=== PATIENT | male | born 1985 | race Caucasian/White ===

== ENCOUNTER 2019-01-25 12:16 | Inpatient (IN) | payer OTHER, SELFPAY ==
[2019-01-25] VITALS (10 sets, daily range): BP systolic 145–158; BP diastolic 81–88; PULSE 76–99; RESP 16–18; TEMP 37.1–38.5; O2SAT 94–98; BMI 59.8; BMI 59.9
[2019-01-25 12:55] LABS: Bedside Glucose 234 mg/dL (70-110)
--- NOTE | 2019-01-25 13:12 | ED.VIS.GEN ---
History of Present Illness Chief Complaint: Abscess Informant: Patient Onset: Days Context: Sudden Onset Timing: Continuous Quality: Abscess right lower abdominal wall with spontaneous drainage Location: Right lower quadrant abdominal wall Current Severity: Moderate Maximum Severity: Moderate Worsened by: Nothing Relieved by: Nothing Associated Symptoms: Subjective fever and chills Narrative: Patient is a 33-year-old male with history of diabetes who presents with abscess and cellulitis right lower quadrant abdominal wall. He states to be sits up the abscess begins to drain. He denies headache, ocular or auditory symptoms. He denies blurred vision. He denies cardiac or respiratory symptoms. He denies GI symptoms. He denies symptoms. He has not assessed his blood sugar recently. He denies dysuria, frequency, urgency or hematuria. Prior similar symptoms: No Recent Illness/Hospitalization: No - Past Medical History (1) Benign essential hypertension Status: Chronic (2) Gastroesophageal reflux disease Status: Chronic (3) Hyperlipidemia Status: Chronic (4) Morbid obesity Status: Chronic (5) Type 2 diabetes mellitus Status: Chronic Past Medical History - Allergies and Home Meds Allergies/Adverse Reactions: Allergies No Known Allergies Allergy (Verified 01/25/19 12:17) Primary Care Physician: Pablo Lloyd MD [Primary Care Provider] - Prior records reviewed: No - Only record is from 2012 Lives: Spouse/ Significant Other Smoking Status: Current every day smoker Drugs: None Review of Systems General: Reports: Chills, Fever, Malaise, Subjective. Denies: Sweats, Weight loss Eyes: Denies: Visual changes - bilaterally, Blurred Vision - bilaterally, Diplopia ENT: Denies: Bilateral ear pain, Rhinorrhea, Sore throat Cardiovascular: Denies: Chest pain, Palpitations, Heart racing Respiratory: Denies: Dyspnea, Cough, Dyspnea on exertion Gastrointestinal: Reports: Abdominal pain. Denies: Nausea, Vomiting, Diarrhea, Melena Genitourinary: Denies: Dysuria, Frequency Musculoskeletal: Denies: Myalgias, Arthralgias, Neck pain, Back pain, Swelling, Extremity Pain, -, - Skin: Reports: Rash, Abscess Neurological: Denies: Headache, Weakness, Parasthesia, Numbness, -, - Endocrine: Denies: Polyuria, Polydipsia Hematologic: Denies: Easy bruising, Easy bleeding Allergy: Denies: Uticaria, Swelling of the mouth Physical Exam Vital Signs/Narrative: Vital Signs Temp Pulse Resp BP Pulse Ox 01/25/19 12:17 98.8 F 99 17 158/81 H 97 Inital Vital Signs reviewed: Yes General: Well nourished, Well developed, Obese, No Acute Distress Head: Normocephalic, Atraumatic Eyes: Perrl, EOMI. Negative for: Pale conjunctiva, Scleral icterus, - ENT: Moist mucous membranes, No rhinorrhea, TM's clear Neck: Supple, Nontender, No lymphadenopathy, No JVD, - Cardiovascular: Regular rate, Regular rhythm, No murmurs, Normal S1, Normal S2 Respiratory: CTA bilaterally, Chest nontender Abdomen: Soft, Nontender, Nondistended, Normal bowel sounds, No masses, - - There is drainage of purulent material from the right lower quadrant abdominal wall. Rectal: Deferred Back: Nontender, Normal Inspection Extremities: Nontender, Edema Skin: Normal color, Rash - There is evidence of cellulitis involving the abdominal wall the right lower quadrant down to the inguinal region.. Negative for: Cyanosis, Jaundice Neurological: Alert, Oriented x3, Cranial nerves II-XII grossly intact, Normal Strength, Normal Sensation Psychological: Normal affect, Normal Mood Diagnostic/Tx/Re-eval Laboratory Results 01/25/19 01/25/19 01/25/19 12:30 12:35 12:35 WBC 16.2 H RBC 4.40 L Hgb 12.1 L Hct 36.2 L MCV 82.3 MCH 27.5 MCHC 33.4 RDW 12.9 RDW Differential 39.0 Plt Count 365 MPV 9.9 Immature Gran % (Auto) 0.600 Neut % (Auto) 80.7 H Lymph % (Auto) 9.3 L Me[place] % (Auto) 7.8 Eos % (Auto) 1.4 Baso % (Auto) 0.2 Absolute Neuts (auto) 13.1 H Absolute Lymphs (auto) 1.51 Total Counted Not Reportable Sodium 132 L Potassium 3.2 L Chloride 98 Carbon Dioxide 27.0 Anion Gap 7 BUN 13 Creatinine 1.29 Estim Creat Clear Calc 96.44 Est GFR (MDRD) Af Amer 82 Est GFR (MDRD) Non-Af 68 BUN/Creatinine Ratio 10.1 Glucose 228 H Lactic Acid Calcium 9.5 POC Glucose 234 H 01/25/19 12:35 WBC RBC Hgb Hct MCV MCH MCHC RDW RDW Differential Plt Count MPV Immature Gran % (Auto) Neut % (Auto) Lymph % (Auto) [place] % (Auto) Eos % (Auto) Baso % (Auto) Absolute Neuts (auto) Absolute Lymphs (auto) Total Counted Sodium Potassium Chloride Carbon Dioxide Anion Gap BUN Creatinine Estim Creat Clear Calc Est GFR (MDRD) Af Amer Est GFR (MDRD) Non-Af BUN/Creatinine Ratio Glucose Lactic Acid 3.4 H Calcium POC Glucose - Rhythm Strip Rhythm Strip: Sinus Rhythm Rate: 96 Ectopy: None - Medical Decision Making Patient has a large abdominal wall abscess and cellulitis. Sepsis work-up was undertaken. If lactate is elevated will obtain blood cultures prior to starting antibiotics and will choose appropriate antibiotics for severe sepsis for skin infection. Patient will require I&D. Since he is morbidly obese he will not be sedated. He did drink 50 minutes prior to arrival. Patient has 2 sirs criteria and a lactate of 3.4. Patient has severe sepsis. Blood cultures were obtained and he was treated with Zosyn and vancomycin. Spoke with Dr. severino who he apparently was referred to to be seen as an outpatient. She will follow and if further intervention is required she will care for patient. Hospitalist was paged for admission. Procedures Procedure(s): Patient was consented for I&D. The area of cellulitis was outlined. Patient had small opening with significant amount of purulent drainage. The area was anesthetized by local infiltration and field block. A 4-5 cm incision was made. Blunt dissection was was undertaken with significant amount of bloody purulent drainage noted. Abscess cavity is 10 cm wide by 10 cm long and 5 cm deep. Patient was explained risk benefits of procedure and did sign consent. Complex large abscess ED Disposition - Plan for ED Patient: Disposition: Acute Care Hospital [facility] Diagnosis: Severe sepsis, Cellulitis and abscess of other specified site, Hyperglycemia due to type 2 diabetes mellitus Referrals: Pablo Lloyd MD [Primary Care Provider] -
[2019-01-25 13:16] LABS: Absolute Lymphocyte Count 1.51 X10^3/ul (0.83-4.51); Absolute Neutrophil Count 13.1 X10^3/uL (2.0-7.7); Basophil# 0.03 X10^3/uL; Basophil% 0.2 % (0-1); Eosinophil# 0.23 X10^3/uL; Eosinophils% 1.4 % (0-5); Hematocrit 36.2 % (40-54); Hemoglobin 12.1 g/dl (13.0-16.5); Lymphocyte # 1.51 X10^3/ul (4.0); Lymphocyte % 9.3 % (19-41); Mean Corp Hgb Conc 33.4 g/gl (32-36); Mean Corpuscular Hgb 27.5 pg (27.0-32.0); Mean Corpuscular Volume 82.3 fL (80-94); Mean Platelet Vol. 9.9 fl (6.2-12.0); Monocyte# 1.26 X10^3/uL; Monocyte% 7.8 % (0-10); Neutrophil # 13.08 X10^3/uL (2.7-7.7); Neutrophil % 80.7 % (47-70); POSITIVE COUNT NO; POSITIVE DIFFERENTIAL NO; Platelet Count 365 K/mm3 (150-450); RBC Distribution Width CV 12.9 % (11.6-14.6); White Blood Count 16.2 K/mm3 (4.4-11.0)
[2019-01-25 13:17] LABS: POSITIVE MORPHOLOGY NO
[2019-01-25 13:21] LABS: Anion Gap 7 (5-15); BUN 13 mg/dL (7-18); BUN/Creat Ratio 10.1 RATIO (10-20); Calcium,Total 9.5 mg/dL (8.5-10.1); Chloride 98 mmol/L (98-107); Creatinine, Serum 1.29 mg/dL (0.70-1.30); EST Glomerular Filtration Rate 68 mL/min (>60); Est Glom Filt Rate - Afr Amer 82 mL/min (>60); Estimated Creatinine Clearance 96.44 ml/min; Glucose 228 mg/dL (74-106); Potassium 3.2 mmol/L (3.5-5.1); Sodium Level 132 mmol/L (136-145)
[2019-01-25 13:37] LABS: Lactic Acid 3.4 mmol/L (0.4-2.0)
--- NOTE | 2019-01-25 14:33 | HP.PCM_ITS ---
Problem List (1) Severe sepsis Status: Acute (2) Cellulitis and abscess of other specified site Status: Acute (3) Hyperlipidemia Status: Chronic (4) Gastroesophageal reflux disease Status: Chronic (5) Type 2 diabetes mellitus Status: Chronic (6) Benign essential hypertension Status: Chronic History of Present Illness Date of Admission: 01/25/19 Chief Complaint: Lower abdominal swelling, drainage. The patient is a 33 year old M with past medical history as mentioned above presented to the emergency room because of lower abdominal swelling and drainage. His symptoms started about 6 days ago with mild swelling of the lower abdomen. 2 days after the symptoms started, he started having lower abdominal pain, described as dull aching pain, mild, 2-3 out of 10 in severity, not radiating, associated with subjective fever or chills as well as increased drainage from the lower abdominal area and without aggravating or relieving factors. He mentioned that there was moderate amount of drainage from the area which looked like pus. In the emergency department, he was afebrile, heart rate was 99, blood pressure was slightly elevated, pulse ox was maintained on room air. Routine blood work was remarkable for leukocytosis with neutrophilia, potassium 3.2, sodium of 132 and blood glucose of 228. His lactic acid was 3.4. He underwent bedside incision and drainage by the ER physician at the emergency department. He is being admitted for acute anterior abdominal wall cellulitis/abscess with severe sepsis status post bedside incision and drainage. Past Medical History Past Medical History (Chronic Problems): Chronic Problems Morbid obesity (Chronic) Hyperlipidemia (Chronic) Gastroesophageal reflux disease (Chronic) Type 2 diabetes mellitus (Chronic) Benign essential hypertension (Chronic) Allergies No Known Allergies Allergy (Verified 01/25/19 12:17) Home Medications: Ambulatory Orders Medication Instructions Recorded Albuterol Inhaler [Ventolin Hfa 2 puff INHALATION Q4H PRN PRN 01/25/19 (SP)] Chlorthalidone 25 mg PO DAILY 01/25/19 Citalopram [Celexa] 40 mg PO DAILY 01/25/19 Doxazosin Mesylate [Cardura] 4 mg PO QHS 01/25/19 Esomeprazole Magnesium 40 mg PO BIDCM 01/25/19 Fluticasone 0.05% [Flonase Nasal 2 sprays PO QHS 01/25/19 [place]] Gabapentin [Neurontin] 300 mg PO QHS 01/25/19 Glipizide [Glipizide ER] 2.5 mg PO DAILY 01/25/19 Liraglutide [Victoza] 1.8 mg SQ DAILY 01/25/19 Lisinopril 40 mg PO DAILY 01/25/19 Metformin HCl 500 mg PO BID 01/25/19 Pravastatin [Pravachol] 40 mg PO DAILY 01/25/19 Verapamil HCl [Verapamil ER] 240 mg PO QHS 01/25/19 Surgical History: tonsillectomy Psychiatric History: No pertinent psych hx Lives: Spouse/ Significant Other Smoking Status: Current every day smoker Alcohol: None Drugs: None - *Family History Maternal History Items: No pertinent history Paternal History Items: Diabetes, - - Congestive heart failure. Review of Systems Constitutional: Reports: Chills, Fever. Denies: Anorexia, Weakness Eyes: Denies: Blurred vision, Double vision, Drainage, Redness HEENT: Denies: Difficulty Hearing, Ear Pain, Eye Pain, Nasal Congestion, Sore Throat Cardiovascular: Denies: Chest Pain, Chest Pressure, Chest Tightness, Heaviness, Light Headedness, Palpitations, Syncope Respiratory: Denies: Cough, Pleuritic Pain, Shortness of Breath, Sputum production, Wheezing Gastrointestinal: Reports: Abdominal Pain. Denies: Constipation, Diarrhea, Nausea, Vomiting Genitourinary: Denies: Dysuria, Frequency, Hematuria Musculoskeletal: Denies: Arm Pain, Back Pain, Foot Pain Skin: Denies: Dryness, Rash Neurological: Denies: Balance problems, Change in Speech, Slurred speech, Confusion, Incoordination, Numbness Psychiatric: Denies: Anxiety, Depression Endocrine: Denies: Change in Body Habitus, Polydipsia VTE Information - Inpt Only VTE Present on Admission: No VTE Mechan Device Prophylaxis: None VTE Pharm Prophylaxis ordered?: No Patient Problems: Active and Suspected Problems Severe sepsis (Acute) Cellulitis and abscess of other specified site (Acute) Hyperglycemia due to type 2 diabetes mellitus (Acute) - Physical Exam General: Alert, Oriented x3, Cooperative, No apparent distress HEENT: Atraumatic, PERRLA, EOMI, Normocephalic Oral: Moist Mucosa, No Gingival or Mucosal Lesions/ Ulcerations Neck: Supple, No JVD, Negative Carotid Bruits, Trachea Midline, Thyroid Normal Size and Texture Lungs: Clear to auscultation, No rhonchi, No wheeze, No rales, Diminished Cardiovascular: Regular rate, Regular Rhythm, Normal S1, Normal S2, No murmurs, PMI Normal Abdomen: Bowel Sounds Present, Soft, Non Tender, Non-Distended, No Hepato- splenomegaly, Obese Extremities: No clubbing, No cyanosis, No edema Skin: No rashes, Ulcer/ Wound - Lower anterior abdominal wall wound, status post incision and drainage, dressed. Lymphatic: No Cervical, Supraclavicular, or Inguinal Adenopathy Neurological: Cranial nerves II-XII grossly intact, Motor Exam 5/5 strength throughout Psych/Mental Status: Normal Affect, Appropriate, Alert and oriented to time, place, person, mood and affect Vital Signs Temp Pulse Resp BP Pulse Ox 98.8 F 76 18 147/86 H 98 01/25/19 13:20 01/25/19 13:20 01/25/19 13:20 01/25/19 13:20 01/25/19 13:20 Oxygen Delivery Method Room Air Weight: 479 lb Body Mass Index (BMI) 59.8 Laboratory Tests Past 24 Hrs 01/25/19 01/25/19 01/25/19 12:35 12:35 12:35 WBC 16.2 H RBC 4.40 L Hgb 12.1 L Hct 36.2 L MCV 82.3 MCH 27.5 MCHC 33.4 RDW 12.9 RDW Differential 39.0 Plt Count 365 MPV 9.9 Immature Gran % (Auto) 0.600 Neut % (Auto) 80.7 H Lymph % (Auto) 9.3 L [place] % (Auto) 7.8 Eos % (Auto) 1.4 Baso % (Auto) 0.2 Absolute Neuts (auto) 13.1 H Absolute Lymphs (auto) 1.51 Total Counted Not Reportable Sodium 132 L Potassium 3.2 L Chloride 98 Carbon Dioxide 27.0 Anion Gap 7 BUN 13 Creatinine 1.29 Estim Creat Clear Calc 96.44 Est GFR (MDRD) Af Amer 82 Est GFR (MDRD) Non-Af 68 BUN/Creatinine Ratio 10.1 Glucose 228 H Lactic Acid 3.4 H Calcium 9.5 POC Glucose 01/25/19 12:30 POC Glucose 234 H Assessment/Plan All Active Problems Severe sepsis (Acute) Cellulitis and abscess of other specified site (Acute) Hyperglycemia due to type 2 diabetes mellitus (Acute) This is a 33 years old male patient presented to the emergency room because of lower abdominal pain and swelling and drainage, found to have acute anterior abdominal wall cellulitis/abscess with severe sepsis, status post bedside incision and drainage. #1 acute anterior abdominal wall cellulitis/abscess/severe sepsis: Status post bedside incision and drainage that was performed by ER physician. Patient was tachycardic, having leukocytosis with elevated lactic acid. Blood pressure is slightly elevated. Plan: Admit to [facility] floor, cardiac monitoring, blood culture, start wound culture, MRSA wound screen, start IV Zosyn and vancomycin, IV fluids, IV morphine PRN, IV antiemetics PRN, repeat lactic acid in 3 hours, repeat CBC and BMP tomorrow morning, general surgery consult, wound care nurse consult. #2 hyponatremia/hypokalemia: Sodium was 133, potassium is 3.2. Likely because of chlorthalidone. Plan for IV fluids with normal saline, will give 1 dose of K. Dur 60 mEq x 1, repeat BMP tomorrow morning. #3 type 2 diabetes mellitus: ADA diet, Accu-Cheks, insulin scale, will check hemoglobin A1c, continue glipizide and Victoza as well as metformin. #4 hypertension: Blood pressure slightly elevated, continue chlorthalidone and lisinopril as well as verapamil, IV hydralazine PRN. #5 hyperlipidemia: Continue statins. #6 GERD: Stable, continue PPI. #7 DVT prophylaxis: SCDs, low risk patient, ambulate. This note was generated with [employer] dictation software. It may contain incorrect words, spelling, and punctuation that were not noted in checking the note before signing. Code Visit Inpatient E&M: 96643 Init Hosp L3
[2019-01-25] MEDS: Ondansetron 4 MG/2 ML Vial IV (14:56)
[2019-01-25] MEDS: morphine 8 MG/ML Syringe IV (14:56)
--- NOTE | 2019-01-25 15:00 | CON.PCM_ITS ---
- Consult Date of Consult: 01/25/19 - Reason for Consult Chief Complaint: abscess of abdominal wall History of Present Illness: 33 y/o super morbidly obese WM presents with abdominal wall abscess. Noted for several days, it is very painful. Noted foul odored drainage from the area, but it is difficult for him to evaluate the area due to his body habitus. Presented to the ED, I&D done by ED physician. Patient has also noted fevers and shaking chills, may be bacteremic/sepsis from this abdominal wall infection WBC 16.2K with left shift of differential. 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 glipiZIDE (GLUCOTROL XL) 2.5 mg 24 hr tablet Take 1 tablet by mouth daily with breakfast. doxazosin (CARDURA) 4 mg tablet Take 1 tablet by mouth daily at bedtime. citalopram (CELEXA) 40 mg tablet Take 1 tablet by mouth once daily. verapamil SR (CALAN SR, ISOPTIN SR) 240 mg CR tablet Take 2 tablets by mouth daily at bedtime. esomeprazole (NEXIUM) 40 mg capsule Take 1 capsule by mouth twice daily before meals. lisinopril (ZESTRIL, PRINIVIL) 40 mg tablet Take 1 tablet by mouth once daily. chlorthalidone (HYGROTON) 25 mg tablet Take 1 tablet by mouth once daily. pravastatin (PRAVACHOL) 40 mg tablet Take 1 tablet by mouth once daily. metFORMIN (GLUCOPHAGE) 500 mg tablet Take 2 tablets by mouth twice daily with meals. fluticasone (FLONASE) 50 mcg/actuation nasal spray Use 2 Sprays in each nostril daily at bedtime. albuterol HFA (VENTOLIN HFA) 90 mcg/actuation inhaler Inhale 2 Puffs as instructed every 4 hours as needed for Wheezing/Shortness of Breath. lancets (ONE TOUCH DELICA) 33 gauge misc Test blood sugar(s) 2 daily. Dx: 250.00. Insulin: No Insulin [place], Disposable, (PEN NEEDLE) 29 gauge x 1/2 ndle Use daily as directed. Dx IMO 0001 blood sugar diagnostic (ONETOUCH VERIO) test strip Test blood sugar(s) 2 times daily. Dx: 250.00. Insulin: No alcohol swabs (ALCOHOL WIPES) padm Use as directed for fingersticks, injections. liraglutide (VICTOZA) 0.6 mg/ 0.1 ml subcutaneous pen injector Inject 1.8 mg subcutaneously once daily. BIPAP 1 Device by MISCELLANEOUS route daily at bedtime. Auto Bilevel PAP settings of: EPAP min of 15 cmH2O, IPAP max of 25 cmH2O, pressure support of 4-6 cmH2O and auto rate. Medium resmed rojo FX nasal pillow mask. Head gear, humidity, tubing, chin strap, [employer]. obstructive sleep apnea G47.33 please fax 30 day download to [phone]. Blood-Glucose Meter (ONETOUCH VERIO SYSTEM) [facility] [place] [facility] One Kit - Verio Meter Kit Dx: Type 2 DM - Uncontrolled E11.65. doxycycline (VIBRA-TABS) 100 mg tablet Take 1 tablet by mouth twice daily for 10 days. ? Allergies: Has no known drug allergies Social history: TOB use positive Review of Systems: General - has fevers/chills, denies weight loss Cardiovascular denies chest pain, denies history of heart attack Pulmonary has shortness of breath with exertion, denies coughing up blood Gastrointestinal abdominal pain at site of abscess, denies blood in stools, denies swallowing problems Neurological denies numbness/weakness of extremities, denies seizures, denies history of stroke Genitourinary denies burning with urination, denies blood in urine Hematological denies spontaneous/prolonged bleeding Skin see HPI Musculoskeletal has some back pain Endocrine has diabetes, is morbidly obese Psychological has depressive disorder Physical examination: Vital signs Temp 101.3F HR 97 RR 16 BP 155/83 General WD/WN WM in no apparent distress, alert and oriented, not septic appearing HEENT Normocephalic. EOM intact with sclera clear and no icterus noted. Neck is supple with no jugular venous distention noted. Trachea is midline. Lungs clear to auscultation. normal breath sounds. No rales/rhonchi/wheezing noted. No labored breathing noted, such as retractions. No cough heard. Heart normal S1 and S2 auscultated. No rubs/clicks/murmurs noted. regular rate Abdomen soft and benign and morbidly obese. Normal bowel sounds. 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 Extremities no calf tenderness noted. bilateral lower dependent extremity swelling Genitourinary/Rectal deferred Skin see above, normal skin integrity. Neurological non focal Psychological normal affect, patient is calm and appropriate Impresion: panniculitis with abscess super morbid obesity with complications of diabetes and TOB use which complicates infection Discussion/Plan: I have discussed the above with the patient. At this point, no further surgery required at this point, but will continue to reassess. Will need antibiotic coverage and control of diabetes - patient admitted to hospitalists service. I have answered all questions to the patient?s satisfaction and the patient has no further questions.
--- NOTE | 2019-01-25 16:21 | PCM.RX.CS ---
Consult Pharmacy has been consulted to manage selected antiobiotic: Vancomycin Type of Consult: New start Suspected Infection: Sepsis, Skin/Soft tissue Prior Doses of Antibiotics Received/Current Regimen: Received 2000mg IV x1 in E.R. at 15:03 today Labs: Sodium 132 mmol/L (136-145) L 01/25/19 12:35 Potassium 3.2 mmol/L (3.5-5.1) L 01/25/19 12:35 Chloride 98 mmol/L (98-107) 01/25/19 12:35 Carbon Dioxide 27.0 mmol/L (21.0-32.0) 01/25/19 12:35 Anion Gap 7 (5-15) 01/25/19 12:35 BUN 13 mg/dL (7-18) 01/25/19 12:35 Creatinine 1.29 mg/dL (0.70-1.30) 01/25/19 12:35 Est GFR (MDRD) Af Amer 82 mL/min (>60) 01/25/19 12:35 Est GFR (MDRD) Non-Af 68 mL/min (>60) 01/25/19 12:35 BUN/Creatinine Ratio 10.1 RATIO (10-20) 01/25/19 12:35 Glucose 228 mg/dL (74-106) H 01/25/19 12:35 Weight used for dosin kg Estimated Creatinine Clearance: 156 ml/min Goal Trough: 10-15 mcg/mL Pharmacy Plan for Drug Dosing: After the E.R. dose is finished, will continue with 1750mg IV q12h to start tomorrow at 03:00. Note that the CrCl of 156 ml/min was calculated using an adjusted body weight of 137.5kg. A trough will be ordered to be drawn before the 4th total dose. Pharmacy Service will continue to monitor and adjust dosing as required. Follow-Up Labs: Trough Vancomycin Labs to be done on [date and time ordered]: 01/27/19 02:30
[2019-01-25 16:40] LABS: Hemoglobin A1c 8.1 % (4.2-6.3)
[2019-01-25 17:05] LABS: Bedside Glucose 109 mg/dL (70-110)
[2019-01-25 17:07] LABS: Reflex Lactate? Y
[2019-01-25] MEDS: oxyCODONE 5 MG Tablet PO (17:12)
[2019-01-25 18:19] LABS: Lactic Acid 1.5 mmol/L (0.4-2.0)
[2019-01-25] MEDS: Morphine 2 MG/ML Syringe IV (19:27)
[2019-01-25 19:28] LABS: M R Staph aureus DNA By PCR Negative (Negative); Probe Check PASS; Specimen Processing Control PASS; Staph aureus DNA By PCR NEGATIVE (Negative)
[2019-01-25] MEDS: 0.9% Normal Saline 1,000 ML 125 ML IV (19:59)
[2019-01-25] MEDS: Pantoprazole Sodium 40 MG Tablet PO (20:32)
[2019-01-25] MEDS: Verapamil SR 240 MG Tablet PO (20:32)
[2019-01-25] MEDS: Doxazosin 4 MG Tablet PO (20:32)
[2019-01-25] MEDS: Acetaminophen 325 MG Tablet 650 MG PO (20:36)
[2019-01-25] MEDS: Insulin Lispro 100 UNIT/ML INSULN.PEN SC (20:49)
--- NOTE | 2019-01-25 21:00 | NURSING ---
Paged RT for breathing tx d/t insp and exp. wheezes. Also paged hospitalist d/t pt states he takes 480mg po verapamil at hs rather than the 240mg ordered.
[2019-01-25] MEDS: Albuterol 2.5 MG/3 ML VIAL.NEB. INHALATION (21:11)
[2019-01-25 22:05] LABS: Bedside Glucose 160 mg/dL (70-110)
[2019-01-25] MEDS: Verapamil SR 240 MG Tablet 480 MG PO (22:06)
[2019-01-26] VITALS (10 sets, daily range): BP systolic 133–157; BP diastolic 76–91; PULSE 81–95; RESP 12–18; TEMP 36.8–37.6; O2SAT 91–98
[2019-01-26] MEDS: 0.9% Normal Saline 1,000 ML 125 ML IV ×3 (00:40→17:22)
[2019-01-26] MEDS: Albuterol 2.5 MG/3 ML VIAL.NEB. INHALATION (03:48)
[2019-01-26 05:51] LABS: Bedside Glucose 194 mg/dL (70-110)
[2019-01-26] MEDS: Insulin Lispro 100 UNIT/ML INSULN.PEN SC ×2 (05:52→12:10)
[2019-01-26 06:20] LABS: Absolute Lymphocyte Count 1.09 X10^3/ul (0.83-4.51); Absolute Neutrophil Count 8.8 X10^3/uL (2.0-7.7); Basophil# 0.03 X10^3/uL; Basophil% 0.3 % (0-1); Eosinophil# 0.15 X10^3/uL; Eosinophils% 1.3 % (0-5); Hematocrit 31.2 % (40-54); Hemoglobin 10.2 g/dl (13.0-16.5); Lymphocyte # 1.09 X10^3/ul (4.0); Lymphocyte % 9.7 % (19-41); Mean Corp Hgb Conc 32.7 g/gl (32-36); Mean Corpuscular Hgb 27.1 pg (27.0-32.0); Mean Corpuscular Volume 82.8 fL (80-94); Mean Platelet Vol. 9.8 fl (6.2-12.0); Monocyte# 1.05 X10^3/uL; Monocyte% 9.4 % (0-10); Neutrophil # 8.83 X10^3/uL (2.7-7.7); Neutrophil % 78.7 % (47-70); Platelet Count 290 K/mm3 (150-450); RBC Distribution Width SD 39.5 fl (35.1-43.9); Red Blood Count 3.77 M/mm3 (4.6-6.2); White Blood Count 11.2 K/mm3 (4.4-11.0)
[2019-01-26 06:26] LABS: POSITIVE COUNT NO; POSITIVE DIFFERENTIAL NO; POSITIVE MORPHOLOGY NO
[2019-01-26 06:29] LABS: Anion Gap 9 (5-15); BUN 14 mg/dL (7-18); Calcium,Total 8.3 mg/dL (8.5-10.1); Chloride 103 mmol/L (98-107); Creatinine, Serum 1.27 mg/dL (0.70-1.30); EST Glomerular Filtration Rate 69 mL/min (>60); Est Glom Filt Rate - Afr Amer 83 mL/min (>60); Estimated Creatinine Clearance 97.95 ml/min; Glucose 207 mg/dL (74-106); Potassium 3.5 mmol/L (3.5-5.1); Sodium Level 136 mmol/L (136-145)
--- NOTE | 2019-01-26 06:49 | PCM.PN.SRG ---
Patient Problems: Active and Suspected Problems Severe sepsis (Acute) Cellulitis and abscess of other specified site (Acute) Hyperglycemia due to type 2 diabetes mellitus (Acute) Subjective: patient with slightly less pain - Physical Exam Vital Signs Temp Pulse Resp BP Pulse Ox 98.9 F 89 12 136/86 H 94 01/26/19 03:13 01/26/19 03:48 01/26/19 03:48 01/26/19 03:13 01/26/19 03:13 Oxygen Delivery Method Room Air Weight: 217.2 kg Body Mass Index (BMI) 59.8 Intake and Output for Last 24 Hours 01/24/19 01/25/19 01/26/19 23:59 23:59 23:59 Intake Total 3126 / 3126 Balance 3126 / 3126 Laboratory Tests Past 24 Hrs 01/25/19 01/25/19 01/25/19 12:35 12:35 12:35 WBC 16.2 H RBC 4.40 L Hgb 12.1 L Hct 36.2 L MCV 82.3 MCH 27.5 MCHC 33.4 RDW 12.9 RDW Differential 39.0 Plt Count 365 MPV 9.9 Immature Gran % (Auto) 0.600 Neut % (Auto) 80.7 H Lymph % (Auto) 9.3 L [place] % (Auto) 7.8 Eos % (Auto) 1.4 Baso % (Auto) 0.2 Absolute Neuts (auto) 13.1 H Absolute Lymphs (auto) 1.51 Total Counted Not Reportable Sodium 132 L Potassium 3.2 L Chloride 98 Carbon Dioxide 27.0 Anion Gap 7 BUN 13 Creatinine 1.29 Estim Creat Clear Calc 96.44 Est GFR (MDRD) Af Amer 82 Est GFR (MDRD) Non-Af 68 BUN/Creatinine Ratio 10.1 Glucose 228 H Hemoglobin A1c Lactic Acid 3.4 H Calcium 9.5 S.aureus Protein A PCR MRSA (PCR) 01/25/19 01/25/19 01/25/19 12:35 17:35 17:45 WBC RBC Hgb Hct MCV MCH MCHC RDW RDW Differential Plt Count MPV Immature Gran % (Auto) Neut % (Auto) Lymph % (Auto) [place] % (Auto) Eos % (Auto) Baso % (Auto) Absolute Neuts (auto) Absolute Lymphs (auto) Total Counted Sodium Potassium Chloride Carbon Dioxide Anion Gap BUN Creatinine Estim Creat Clear Calc Est GFR (MDRD) Af Amer Est GFR (MDRD) Non-Af BUN/Creatinine Ratio Glucose Hemoglobin A1c 8.1 H Lactic Acid 1.5 Calcium S.aureus Protein A PCR NEGATIVE MRSA (PCR) Negative 01/26/19 01/26/19 05:30 05:30 WBC 11.2 H RBC 3.77 L Hgb 10.2 L Hct 31.2 L MCV 82.8 MCH 27.1 MCHC 32.7 RDW 13.0 RDW Differential 39.5 Plt Count 290 MPV 9.8 Immature Gran % (Auto) 0.600 Neut % (Auto) 78.7 H Lymph % (Auto) 9.7 L [place] % (Auto) 9.4 Eos % (Auto) 1.3 Baso % (Auto) 0.3 Absolute Neuts (auto) 8.8 H Absolute Lymphs (auto) 1.09 Total Counted Not Reportable Sodium 136 Potassium 3.5 Chloride 103 Carbon Dioxide 24.0 Anion Gap 9 BUN 14 Creatinine 1.27 Estim Creat Clear Calc 97.95 Est GFR (MDRD) Af Amer 83 Est GFR (MDRD) Non-Af 69 BUN/Creatinine Ratio 11.0 Glucose 207 H Hemoglobin A1c Lactic Acid Calcium 8.3 L S.aureus Protein A PCR MRSA (PCR) POC Glucose 01/26/19 01/25/19 01/25/19 05:47 20:44 16:37 POC Glucose 194 H 160 H 109 01/25/19 12:30 POC Glucose 234 H Medical Necessity - Tobacco Use Smoking Status: Current every day smoker Tobacco Use: Cigarettes Assessment/Plan All Active Problems Severe sepsis (Acute) Cellulitis and abscess of other specified site (Acute) Hyperglycemia due to type 2 diabetes mellitus (Acute) Impression: panniculitis, abdominal wall abscess Plan: will recheck tomorrow if needed, may take patient to OR for further debridement then on Sunday, can place wound vac continue present therapy
[2019-01-26] MEDS: Morphine 2 MG/ML Syringe IV ×2 (07:06→15:34)
[2019-01-26] MEDS: Chlorthalidone 50 MG Tablet 25 MG PO (08:24)
[2019-01-26] MEDS: Pantoprazole Sodium 40 MG Tablet PO ×2 (08:25→22:50)
[2019-01-26] MEDS: Citalopram 40 MG TABLET PO (08:25)
[2019-01-26] MEDS: Lisinopril 40 MG Tablet PO (08:25)
[2019-01-26] MEDS: Glucerna Shake 120 ML LIQUID PO ×3 (08:29→17:18)
--- NOTE | 2019-01-26 08:42 | PCM.PROGNOTE ---
Patient Problems: Active and Suspected Problems Severe sepsis (Acute) Cellulitis and abscess of other specified site (Acute) Hyperglycemia due to type 2 diabetes mellitus (Acute) Subjective: Chief complaint: Follow-up after admission for acute anterior abdominal wall panniculitis/cellulitis/abscess with severe sepsis. Patient seen and examined. No acute events overnight. He denies any significant complaints. He has spiked a fever last night, other vital signs are stable. White blood cell count is trending down. - Physical Exam General: Alert, Oriented x3, Cooperative, No apparent distress HEENT: Atraumatic, PERRLA, EOMI, Normocephalic Oral: Moist Mucosa, No Gingival or Mucosal Lesions/ Ulcerations Neck: Supple, No JVD, Negative Carotid Bruits, Trachea Midline, Thyroid Normal Size and Texture Lungs: Clear to auscultation, No rhonchi, No wheeze, No rales, Diminished Cardiovascular: Regular rate, Regular Rhythm, Normal S1, Normal S2, No murmurs Abdomen: Bowel Sounds Present, Soft, Non Tender, Non-Distended, No Hepato-splenomegaly, Obese Extremities: No clubbing, No cyanosis, No edema Skin: No rashes, Ulcer/ Wound Lymphatic: No Cervical, Supraclavicular, or Inguinal Adenopathy Neurological: Cranial nerves II-XII grossly intact, Neuro grossly intact Psych/Mental Status: Normal Affect, Appropriate, Alert and oriented to time, place, person, mood and affect Vital Signs Temp Pulse Resp BP Pulse Ox 98.6 F 81 18 133/76 H 98 01/26/19 08:20 01/26/19 08:20 01/26/19 08:20 01/26/19 08:20 01/26/19 08:20 Oxygen Delivery Method Room Air Weight: 478 lb 13.504 oz Body Mass Index (BMI) 59.8 Intake and Output for Last 24 Hours 01/24/19 01/25/19 01/26/19 23:59 23:59 23:59 Intake Total 3126 / 3126 Balance 3126 / 3126 Microbiology Past 72 Hours 01/25/19 17:45 Gram Stain - Final Wound Abcess - Abdominal Laboratory Tests Past 24 Hrs 01/25/19 01/25/19 01/25/19 12:35 12:35 12:35 WBC 16.2 H RBC 4.40 L Hgb 12.1 L Hct 36.2 L MCV 82.3 MCH 27.5 MCHC 33.4 RDW 12.9 RDW Differential 39.0 Plt Count 365 MPV 9.9 Immature Gran % (Auto) 0.600 Neut % (Auto) 80.7 H Lymph % (Auto) 9.3 L [place] % (Auto) 7.8 Eos % (Auto) 1.4 Baso % (Auto) 0.2 Absolute Neuts (auto) 13.1 H Absolute Lymphs (auto) 1.51 Total Counted Not Reportable Sodium 132 L Potassium 3.2 L Chloride 98 Carbon Dioxide 27.0 Anion Gap 7 BUN 13 Creatinine 1.29 Estim Creat Clear Calc 96.44 Est GFR (MDRD) Af Amer 82 Est GFR (MDRD) Non-Af 68 BUN/Creatinine Ratio 10.1 Glucose 228 H Hemoglobin A1c Lactic Acid 3.4 H Calcium 9.5 S.aureus Protein A PCR MRSA (PCR) 01/25/19 01/25/19 01/25/19 12:35 17:35 17:45 WBC RBC Hgb Hct MCV MCH MCHC RDW RDW Differential Plt Count MPV Immature Gran % (Auto) Neut % (Auto) Lymph % (Auto) [place] % (Auto) Eos % (Auto) Baso % (Auto) Absolute Neuts (auto) Absolute Lymphs (auto) Total Counted Sodium Potassium Chloride Carbon Dioxide Anion Gap BUN Creatinine Estim Creat Clear Calc Est GFR (MDRD) Af Amer Est GFR (MDRD) Non-Af BUN/Creatinine Ratio Glucose Hemoglobin A1c 8.1 H Lactic Acid 1.5 Calcium S.aureus Protein A PCR NEGATIVE MRSA (PCR) Negative 01/26/19 01/26/19 05:30 05:30 WBC 11.2 H RBC 3.77 L Hgb 10.2 L Hct 31.2 L MCV 82.8 MCH 27.1 MCHC 32.7 RDW 13.0 RDW Differential 39.5 Plt Count 290 MPV 9.8 Immature Gran % (Auto) 0.600 Neut % (Auto) 78.7 H Lymph % (Auto) 9.7 L [place] % (Auto) 9.4 Eos % (Auto) 1.3 Baso % (Auto) 0.3 Absolute Neuts (auto) 8.8 H Absolute Lymphs (auto) 1.09 Total Counted Not Reportable Sodium 136 Potassium 3.5 Chloride 103 Carbon Dioxide 24.0 Anion Gap 9 BUN 14 Creatinine 1.27 Estim Creat Clear Calc 97.95 Est GFR (MDRD) Af Amer 83 Est GFR (MDRD) Non-Af 69 BUN/Creatinine Ratio 11.0 Glucose 207 H Hemoglobin A1c Lactic Acid Calcium 8.3 L S.aureus Protein A PCR MRSA (PCR) POC Glucose 01/26/19 01/25/19 01/25/19 05:47 20:44 16:37 POC Glucose 194 H 160 H 109 01/25/19 12:30 POC Glucose 234 H Medical Necessity - Tobacco Use Smoking Status: Current every day smoker Tobacco Use: Cigarettes Assessment/Plan All Active Problems Severe sepsis (Acute) Cellulitis and abscess of other specified site (Acute) Hyperglycemia due to type 2 diabetes mellitus (Acute) This is a 33 years old male patient presented to the emergency room because of lower abdominal pain and swelling and drainage, found to have acute anterior abdominal wall cellulitis/abscess with severe sepsis, status post bedside incision and drainage. #1 acute anterior abdominal wall panniculitis/cellulitis/abscess/severe sepsis: Status post bedside incision and drainage that was performed by ER physician. He is on IV vancomycin and Zosyn. He had a spike a fever last night, other vital signs are stable. White blood cell count is trending down. MRSA screen was negative. Lactic acid is back to normal. Wound and blood cultures are pending. General surgery consulted, plan to potassium treatment. Patient may need to go back to the operating room for more excision and debridement according to general surgery. Plan for now is to continue same treatment and monitor. #2 hyponatremia/hypokalemia: Both sodium and potassium were replaced and corrected. Likely because of chlorthalidone. Today's sodium was 136, potassium is 3.5. #3 type 2 diabetes mellitus: Blood sugar has been under fair control. Hemoglobin A1c is 8.1. Plan to continue ADA diet, Accu-Cheks, insulin scale, continue glipizide and Victoza as well as metformin. #4 hypertension: Blood pressure under better control, continue chlorthalidone and lisinopril as well as verapamil, IV hydralazine PRN. #5 hyperlipidemia: Continue statins. #6 GERD: Stable, continue PPI. #7 DVT prophylaxis: SCDs, low risk patient, ambulate. This note was generated with [employer] software. It may contain incorrect words, spelling, and punctuation that were not noted in checking the note before signing. Code Visit Inpatient E&M: 55441 Subs Hosp L2
[2019-01-26 12:20] LABS: Bedside Glucose 197 mg/dL (70-110)
[2019-01-26] MEDS: oxyCODONE 5 MG Tablet PO (15:34)
[2019-01-26] MEDS: 0.9% NaCl Peripheral Flush Adult/Peds IV (15:35)
[2019-01-26 17:31] LABS: Bedside Glucose 130 mg/dL (70-110)
[2019-01-26] MEDS: Gabapentin 300 MG Capsule PO (22:49)
[2019-01-26] MEDS: Nystatin Powder 15gm Bottle 1 APPLIC TOPICAL (22:49)
[2019-01-26] MEDS: Pravastatin 40 MG Tablet PO (22:50)
[2019-01-26] MEDS: Verapamil SR 240 MG Tablet 480 MG PO (22:50)
[2019-01-26] MEDS: Doxazosin 4 MG Tablet PO (22:51)
[2019-01-26 23:01] LABS: Bedside Glucose 123 mg/dL (70-110)
[2019-01-27] VITALS (13 sets, daily range): BP systolic 135–177; BP diastolic 80–108; PULSE 82–118; RESP 16–18; TEMP 36.8–37.3; O2SAT 94–97
[2019-01-27] MEDS: 0.9% Normal Saline 1,000 ML 125 ML IV ×3 (01:41→21:14)
[2019-01-27 03:20] LABS: Vancomycin, Trough Level 10.4 ug/mL (5.0-15.0)
[2019-01-27] MEDS: hydrALAZINE 20 MG/ML Vial 10 MG IV (03:28)
--- NOTE | 2019-01-27 04:17 | PCM.RX.CS ---
Consult Pharmacy has been consulted to manage selected antiobiotic: Vancomycin Type of Consult: Follow-up Suspected Infection: Sepsis Labs: Sodium 136 mmol/L (136-145) 01/26/19 05:30 Potassium 3.5 mmol/L (3.5-5.1) 01/26/19 05:30 Chloride 103 mmol/L (98-107) 01/26/19 05:30 Carbon Dioxide 24.0 mmol/L (21.0-32.0) 01/26/19 05:30 Anion Gap 9 (5-15) 01/26/19 05:30 BUN 14 mg/dL (7-18) 01/26/19 05:30 Creatinine 1.27 mg/dL (0.70-1.30) 01/26/19 05:30 Est GFR (MDRD) Af Amer 83 mL/min (>60) 01/26/19 05:30 Est GFR (MDRD) Non-Af 69 mL/min (>60) 01/26/19 05:30 BUN/Creatinine Ratio 11.0 RATIO (10-20) 01/26/19 05:30 Glucose 207 mg/dL (74-106) H 01/26/19 05:30 Vancomycin Trough 10.4 ug/mL (5.0-15.0) 01/27/19 02:28 Microbiology: Microbiology 01/25/19 17:45 Wound Abcess - Abdominal Gram Stain - Final 01/25/19 17:45 Wound Abcess - Abdominal Wound Culture - Preliminary No growth-Final to follow Goal Trough: 10-15 mcg/mL Pharmacy Plan for Drug Dosing: Pharmacy Service will continue to monitor and adjust dosing as required. Follow-Up Labs: Trough Vancomycin Labs to be done on [date and time ordered]: 01/31 @ 3511
[2019-01-27] MEDS: Lisinopril 40 MG Tablet PO (06:26)
[2019-01-27] MEDS: Chlorthalidone 50 MG Tablet 25 MG PO (06:27)
[2019-01-27 06:36] LABS: Bedside Glucose 147 mg/dL (70-110)
[2019-01-27] MEDS: Glucerna Shake 120 ML LIQUID PO ×3 (08:31→17:10)
[2019-01-27] MEDS: Pantoprazole Sodium 40 MG Tablet PO ×2 (08:32→21:13)
[2019-01-27] MEDS: Citalopram 40 MG TABLET PO (08:32)
[2019-01-27] MEDS: Nystatin Powder 15gm Bottle 1 APPLIC TOPICAL ×2 (08:33→21:13)
--- NOTE | 2019-01-27 09:34 | PCM.PN.HOSP ---
Patient Problems: Active and Suspected Problems Severe sepsis (Acute) Cellulitis and abscess of other specified site (Acute) Hyperglycemia due to type 2 diabetes mellitus (Acute) Subjective: Follow up abdominal wall cellulitis and abscess Abdomen feeling better. Given the location of the cellulitis, he cannot see the redness. Vitals/I&O's: Vital Signs Temp Pulse Resp BP Pulse Ox 36.8 C 93 18 135/81 H 94 01/27/19 08:30 01/27/19 08:30 01/27/19 08:30 01/27/19 08:30 01/27/19 08:30 Oxygen Delivery Method Room Air Weight: 217.2 kg Body Mass Index (BMI) 59.8 Intake and Output for Last 24 Hours 01/25/19 01/26/19 01/27/19 23:59 23:59 23:59 Intake Total 4635 / 4635 2639 / 2639 Balance 4635 / 4635 2639 / 2639 General: Alert, No apparent distress HEENT: Atraumatic, Normocephalic Oral: Moist Mucosa, No Gingival or Mucosal Lesions/ Ulcerations Neck: No Nodes, Thyroid Normal Size and Texture Lungs: Clear to auscultation, Normal air movement, No rhonchi, No wheeze Cardiovascular: Regular rate, Regular Rhythm, Normal S1, Normal S2, No murmurs Abdomen: Bowel Sounds Present, Soft, Non Tender, Non-Distended, Obese Extremities: No edema, No Calf Tenderness Skin: - - Resolved erythema under his pannus as well is in his suprapubic region of his abdomen. Incision and drainage site visualized and packing in place, did not remove the packing. Psych/Mental Status: Normal Affect, Appropriate Microbiology Past 72 Hours 01/25/19 17:45 Wound Abcess - Abdominal Gram Stain - Final 01/25/19 17:45 Wound Abcess - Abdominal Wound Culture - Preliminary No growth-Final to follow Laboratory Results 01/26/19 12:09: POC Glucose 197 H 01/26/19 17:16: POC Glucose 130 H 01/26/19 22:47: POC Glucose 123 H 01/27/19 02:28: Vancomycin Trough 10.4 01/27/19 06:25: POC Glucose 147 H Current Medications Acetaminophen (Tylenol) 650 mg PO Q6H PRN PRN PRN Reason: Mild Pain (1-3)/Temp > 100.7 F Last Admin: 01/25/19 20:36 Dose: 650 mg Albuterol Sulfate (Ventolin Aerosols) 2.5 mg INHALATION Q4H PRN PRN PRN Reason: Shortness of breath, wheezing Last Admin: 01/26/19 03:48 Dose: 2.5 mg Chlorthalidone (Hygroton) 25 mg PO DAILY [facility] Last Admin: 01/27/19 06:27 Dose: 25 mg Citalopram Hydrobromide (Celexa) 40 mg PO DAILY [facility] Last Admin: 01/27/19 08:32 Dose: 40 mg Dextrose (D50w Syringe) 0 gm IV X1 PRN; Protocol PRN Reason: Hypoglycemia Doxazosin Mesylate (Cardura) 4 mg PO QHS [facility] Last Admin: 01/26/19 22:51 Dose: 4 mg Gabapentin (Neurontin) 300 mg PO QHS [facility] Last Admin: 01/26/19 22:49 Dose: 300 mg Glipizide (Glipizide Er) 2.5 mg PO DAILY@0800 [facility] Last Admin: 01/27/19 08:32 Dose: 2.5 mg Glucagon () 1 mg IM .X1 PRN PRN Reason: Hypoglycemia Hydralazine HCl (Apresoline Iv) 10 mg IV Q8H PRN PRN PRN Reason: for SBP>160 Last Admin: 01/27/19 03:28 Dose: 10 mg Sodium Chloride () 1,000 mls @ 125 mls/hr IV .Q8H [facility] Last Admin: 01/27/19 01:41 Dose: 125 mls/hr Piperacillin Sod/Tazobactam (Sod 3.375 gm/ Sodium Chloride) 50 mls @ 12.5 mls/hr IV Q8 [facility] Last Admin: 01/27/19 05:25 Dose: 12.5 mls/hr Vancomycin HCl 1,750 mg/ (Sodium Chloride) 535 mls @ 250 mls/hr IV Q12H [facility] Last Admin: 01/27/19 03:24 Dose: 250 mls/hr Vancomycin IV Pharmacy to Dose (1 ea/ Sodium Chloride) 500 mls @ 250 mls/hr IV X1 PRN; Protocol PRN Reason: Rx to Dose Insulin Human Lispro (Humalog Kwikpen (Bkc)) 0 unit SC ACHS [facility]; Protocol Last Admin: 01/27/19 06:30 Dose: Not Given Lisinopril (Zestril) 40 mg PO DAILY [facility] Last Admin: 01/27/19 06:26 Dose: 40 mg [facility]) [facility] Last Admin: 01/27/19 08:31 Dose: 500 mg Morphine Sulfate () 1 - 2 mg IV Q3H PRN PRN PRN Reason: Severe pain (7-10/10) Last Admin: 01/26/19 15:34 Dose: 2 mg Nutritional Formula (Lactose Free) (Glucerna Shake) 120 ml PO TIDCM [facility] Last Admin: 01/27/19 08:31 Dose: 120 ml Nystatin (Mycostatin Powder) 1 applic TOPICAL BID [facility]; Protocol Last Admin: 01/27/19 08:33 Dose: 1 applicatio Ondansetron HCl (Zofran) 4 mg IV Q8H PRN PRN PRN Reason: NAUSEA/VOMITING Oxycodone HCl (Oxyir) 5 mg PO Q6H PRN PRN PRN Reason: Moderate Pain (4-6/10) Last Admin: 01/26/19 15:34 Dose: 5 mg Pantoprazole Sodium (Protonix) 40 mg PO BID [facility] Last Admin: 01/27/19 08:32 Dose: 40 mg Pravastatin Sodium (Pravachol) 40 mg PO DAILY@2200 [facility] Last Admin: 01/26/19 22:50 Dose: 40 mg Sodium Chloride () 5 - 15 ml IV UD PRN PRN Reason: SALINE FLUSH Last Admin: 01/26/19 15:35 Dose: 10 ml Verapamil HCl (Calan Sr) 480 mg PO QHS [facility] Last Admin: 01/26/19 22:50 Dose: 480 mg Medical Necessity - Tobacco Use Smoking Status: Current every day smoker Tobacco Use: Cigarettes Assessment/Plan All Active Problems Severe sepsis (Acute) Cellulitis and abscess of other specified site (Acute) Hyperglycemia due to type 2 diabetes mellitus (Acute) 1. Abdominal wall cellulitis and abscess Clinically improving and erythema essentially resolved Culture performed on was negative as of the . Will reevaluate this afternoon to see if anything is come back positive General surgery on consultation to see if any further debridement necessary. Mention of a wound VAC. Will await general surgery's further recommendations about moving forward with surgery or not. 2. Hyponatremia improved Likely secondary to chlorthalidone 3. Hypokalemia Improved Likely secondary to chlorthalidone 4. Diabetes mellitus type 2 Fair control Continue with glipizide, metformin and sliding scale insulin 5. VTE prophylaxis with SCDs Code Visit Inpatient E&M: 98819 Subs Hosp L2
--- NOTE | 2019-01-27 09:40 | PN_ITS ---
Patient Problems: Active and Suspected Problems Severe sepsis (Acute) Cellulitis and abscess of other specified site (Acute) Hyperglycemia due to type 2 diabetes mellitus (Acute) Subjective: Follow up abdominal wall cellulitis and abscess Abdomen feeling better. Given the location of the cellulitis, he cannot see the redness. Vitals/I&O's: Vital Signs Temp Pulse Resp BP Pulse Ox 36.8 C 93 18 135/81 H 94 01/27/19 08:30 01/27/19 08:30 01/27/19 08:30 01/27/19 08:30 01/27/19 08:30 Oxygen Delivery Method Room Air Weight: 217.2 kg Body Mass Index (BMI) 59.8 Intake and Output for Last 24 Hours 01/25/19 01/26/19 01/27/19 23:59 23:59 23:59 Intake Total 4635 / 4635 2639 / 2639 Balance 4635 / 4635 2639 / 2639 General: Alert, No apparent distress HEENT: Atraumatic, Normocephalic Oral: Moist Mucosa, No Gingival or Mucosal Lesions/ Ulcerations Neck: No Nodes, Thyroid Normal Size and Texture Lungs: Clear to auscultation, Normal air movement, No rhonchi, No wheeze Cardiovascular: Regular rate, Regular Rhythm, Normal S1, Normal S2, No murmurs Abdomen: Bowel Sounds Present, Soft, Non Tender, Non-Distended, Obese Extremities: No edema, No Calf Tenderness Skin: - - Resolved erythema under his pannus as well is in his suprapubic region of his abdomen. Incision and drainage site visualized and packing in place, did not remove the packing. Psych/Mental Status: Normal Affect, Appropriate Microbiology Past 72 Hours 01/25/19 17:45 Wound Abcess - Abdominal Gram Stain - Final 01/25/19 17:45 Wound Abcess - Abdominal Wound Culture - Preliminary No growth-Final to follow Laboratory Results 01/26/19 12:09: POC Glucose 197 H 01/26/19 17:16: POC Glucose 130 H 01/26/19 22:47: POC Glucose 123 H 01/27/19 02:28: Vancomycin Trough 10.4 01/27/19 06:25: POC Glucose 147 H Current Medications Acetaminophen (Tylenol) 650 mg PO Q6H PRN PRN PRN Reason: Mild Pain (1-3)/Temp > 100.7 F Last Admin: 01/25/19 20:36 Dose: 650 mg Albuterol Sulfate (Ventolin Aerosols) 2.5 mg INHALATION Q4H PRN PRN PRN Reason: Shortness of breath, wheezing Last Admin: 01/26/19 03:48 Dose: 2.5 mg Chlorthalidone (Hygroton) 25 mg PO DAILY [facility] Last Admin: 01/27/19 06:27 Dose: 25 mg Citalopram Hydrobromide (Celexa) 40 mg PO DAILY [facility] Last Admin: 01/27/19 08:32 Dose: 40 mg Dextrose (D50w Syringe) 0 gm IV X1 PRN; Protocol PRN Reason: Hypoglycemia Doxazosin Mesylate (Cardura) 4 mg PO QHS [facility] Last Admin: 01/26/19 22:51 Dose: 4 mg Gabapentin (Neurontin) 300 mg PO QHS [facility] Last Admin: 01/26/19 22:49 Dose: 300 mg Glipizide (Glipizide Er) 2.5 mg PO DAILY@0800 [facility] Last Admin: 01/27/19 08:32 Dose: 2.5 mg Glucagon () 1 mg IM .X1 PRN PRN Reason: Hypoglycemia Hydralazine HCl (Apresoline Iv) 10 mg IV Q8H PRN PRN PRN Reason: for SBP>160 Last Admin: 01/27/19 03:28 Dose: 10 mg Sodium Chloride () 1,000 mls @ 125 mls/hr IV .Q8H [facility] Last Admin: 01/27/19 01:41 Dose: 125 mls/hr Piperacillin Sod/Tazobactam (Sod 3.375 gm/ Sodium Chloride) 50 mls @ 12.5 mls/hr IV Q8 [facility] Last Admin: 01/27/19 05:25 Dose: 12.5 mls/hr Vancomycin HCl 1,750 mg/ (Sodium Chloride) 535 mls @ 250 mls/hr IV Q12H [facility] Last Admin: 01/27/19 03:24 Dose: 250 mls/hr Vancomycin IV Pharmacy to Dose (1 ea/ Sodium Chloride) 500 mls @ 250 mls/hr IV X1 PRN; Protocol PRN Reason: Rx to Dose Insulin Human Lispro (Humalog Kwikpen (Bkc)) 0 unit SC ACHS [facility]; Protocol Last Admin: 01/27/19 06:30 Dose: Not Given Lisinopril (Zestril) 40 mg PO DAILY [facility] Last Admin: 01/27/19 06:26 Dose: 40 mg [facility]) [facility] Last Admin: 01/27/19 08:31 Dose: 500 mg Morphine Sulfate () 1 - 2 mg IV Q3H PRN PRN PRN Reason: Severe pain (7-10/10) Last Admin: 01/26/19 15:34 Dose: 2 mg Nutritional Formula (Lactose Free) (Glucerna Shake) 120 ml PO TIDCM [facility] Last Admin: 01/27/19 08:31 Dose: 120 ml Nystatin (Mycostatin Powder) 1 applic TOPICAL BID [facility]; Protocol Last Admin: 01/27/19 08:33 Dose: 1 applicatio Ondansetron HCl (Zofran) 4 mg IV Q8H PRN PRN PRN Reason: NAUSEA/VOMITING Oxycodone HCl (Oxyir) 5 mg PO Q6H PRN PRN PRN Reason: Moderate Pain (4-6/10) Last Admin: 01/26/19 15:34 Dose: 5 mg Pantoprazole Sodium (Protonix) 40 mg PO BID [facility] Last Admin: 01/27/19 08:32 Dose: 40 mg Pravastatin Sodium (Pravachol) 40 mg PO DAILY@2200 [facility] Last Admin: 01/26/19 22:50 Dose: 40 mg Sodium Chloride () 5 - 15 ml IV UD PRN PRN Reason: SALINE FLUSH Last Admin: 01/26/19 15:35 Dose: 10 ml Verapamil HCl (Calan Sr) 480 mg PO QHS [facility] Last Admin: 01/26/19 22:50 Dose: 480 mg Medical Necessity - Tobacco Use Smoking Status: Current every day smoker Tobacco Use: Cigarettes Assessment/Plan All Active Problems Severe sepsis (Acute) Cellulitis and abscess of other specified site (Acute) Hyperglycemia due to type 2 diabetes mellitus (Acute) 1. Abdominal wall cellulitis and abscess * Clinically improving and erythema essentially resolved * Culture performed on was negative as of the . Will reevaluate this afternoon to see if anything is come back positive * General surgery on consultation to see if any further debridement necessary. Mention of a wound VAC. Will await general surgery's further recommendations about moving forward with surgery or not. 2. Hyponatremia * improved * Likely secondary to chlorthalidone 3. Hypokalemia * Improved * Likely secondary to chlorthalidone 4. Diabetes mellitus type 2 * Fair control * Continue with glipizide, metformin and sliding scale insulin 5. VTE prophylaxis with SCDs Code Visit Inpatient E&M: 28036 Subs Hosp L2
[2019-01-27] MEDS: Insulin Lispro 100 UNIT/ML INSULN.PEN SC (11:42)
[2019-01-27 11:50] LABS: Bedside Glucose 159 mg/dL (70-110)
[2019-01-27] MEDS: Acetaminophen 325 MG Tablet 650 MG PO (12:03)
--- NOTE | 2019-01-27 12:03 | PCM.PN.SRG ---
Patient Problems: Active and Suspected Problems Severe sepsis (Acute) Cellulitis and abscess of other specified site (Acute) Hyperglycemia due to type 2 diabetes mellitus (Acute) Subjective: Patient states that he feels better, less pain in the area - Physical Exam General: Alert, Oriented x3 Oral: Moist Mucosa Neck: Supple Lungs: Normal air movement Abdomen: Soft, - - skin area superior to fold appears to have less erythema, uncertain if peripubic area with increased or same erythema, palpation from within wound - no further cavity detected, this may be ongoing cellulitis, difficult to determine due to patient's body habitus Vital Signs Temp Pulse Resp BP Pulse Ox 98.3 F 93 18 135/81 H 94 01/27/19 08:30 01/27/19 08:30 01/27/19 08:30 01/27/19 08:30 01/27/19 08:30 Oxygen Delivery Method Room Air Weight: 217.2 kg Body Mass Index (BMI) 59.8 Intake and Output for Last 24 Hours 01/25/19 01/26/19 01/27/19 23:59 23:59 23:59 Intake Total 4635 / 4635 3922 / 3922 Balance 4635 / 4635 3922 / 3922 Microbiology Past 72 Hours 01/25/19 17:45 Gram Stain - Final Wound Abcess - Abdominal Wound Culture - Preliminary No growth-Final to follow Laboratory Tests Past 24 Hrs 01/27/19 02:28 Vancomycin Trough 10.4 POC Glucose 01/27/19 01/27/19 01/26/19 11:40 06:25 22:47 POC Glucose 159 H 147 H 123 H 01/26/19 01/26/19 17:16 12:09 POC Glucose 130 H 197 H Medical Necessity - Tobacco Use Smoking Status: Current every day smoker Tobacco Use: Cigarettes Assessment/Plan All Active Problems Severe sepsis (Acute) Cellulitis and abscess of other specified site (Acute) Hyperglycemia due to type 2 diabetes mellitus (Acute) Impression: panniculitis, abdominal wall abscess Plan: I cannot discern if there is possibility of undrained areas versus cellulitis due to patient's body habitus. From examination of the wound (I changed the packing), it seems that the cavity is well defined. Will discuss case with Dr. Crews tomorrow for his input will probably need wound vac in near future continue present therapy
[2019-01-27] MEDS: Docusate Sodium 100 MG Capsule PO ×2 (15:10→21:13)
[2019-01-27 17:31] LABS: Bedside Glucose 120 mg/dL (70-110)
[2019-01-27] MEDS: Doxazosin 4 MG Tablet PO (21:13)
[2019-01-27] MEDS: Verapamil SR 240 MG Tablet 480 MG PO (21:13)
[2019-01-27] MEDS: Gabapentin 300 MG Capsule PO (21:13)
[2019-01-27] MEDS: Pravastatin 40 MG Tablet PO (21:13)
[2019-01-27 21:26] LABS: Bedside Glucose 137 mg/dL (70-110)
[2019-01-28] VITALS (9 sets, daily range): BP systolic 160–167; BP diastolic 82–109; PULSE 81–99; RESP 16–18; TEMP 36.8–37; O2SAT 94–98
[2019-01-28] MEDS: hydrALAZINE 20 MG/ML Vial 10 MG IV ×2 (03:13→14:51)
[2019-01-28 06:50] LABS: Bedside Glucose 147 mg/dL (70-110)
[2019-01-28] MEDS: 0.9% Normal Saline 1,000 ML 125 ML IV (08:35)
[2019-01-28] MEDS: Glucerna Shake 120 ML LIQUID PO ×2 (08:40→11:36)
[2019-01-28] MEDS: Chlorthalidone 50 MG Tablet 25 MG PO (08:40)
[2019-01-28] MEDS: Pantoprazole Sodium 40 MG Tablet PO (08:41)
[2019-01-28] MEDS: Docusate Sodium 100 MG Capsule PO (08:41)
[2019-01-28] MEDS: Lisinopril 40 MG Tablet PO (08:41)
[2019-01-28] MEDS: Citalopram 40 MG TABLET PO (08:45)
[2019-01-28] MEDS: Nystatin Powder 15gm Bottle 1 APPLIC TOPICAL (08:54)
--- NOTE | 2019-01-28 09:26 | NURSING ---
wound photo: right lower abdomen
[2019-01-28 11:45] LABS: Bedside Glucose 138 mg/dL (70-110)
--- NOTE | 2019-01-28 12:57 | CASEMGMT ---
RN CM Assessment Introduced role of RN CM to patient and patient mother at bedside.? Patient is alert, oriented and able?to participate in RN CM Assessment. ?Care providers, pharmacy, and demographics verified. 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 Admit Dx: Acute Anterior Abd Wall Cellulitis/Abscess w/Severe Sepsis Re-Admit: No Barriers/Issues: None PCP: Palbo Lloyd at [facility] Specialists: None Preferred Pharmacy: [facility] Insurance: [employer] Rx Benefit: Yes? ?LNOK: Albina Anthony LW/HPOA: No, Would like information Living Arrangements:?Lives in a 2 story home, resides on the . No steps to enter home. ADL?s: Independent with ambulation and ADL's Transportation: Patient drives, drove self to hospital. If unable to drive self home, patient mother can drive upon DC DME: Cpap, Glucometer HHC: None, if HHC needed- no preference on Agency, Preference in network. SNF: None Goal: Home, States HHC for Wound Care. States if IV ABX needed, ,no preference on Infusion company, preference in network. DC PLAN: Home with possible HH hedis registered nurse rn vs wound ctr, possible IV Abx. ANJANA Garland
--- NOTE | 2019-01-28 13:58 | PCM.CONS.GEN ---
Reason for Consult Date of Consultation: 01/28/19 Reason for Consultation: Abdominal panniculus with panniculitis and recent I&D abdominal wall abscess. REFERRING PHYSICIAN: Dr. Cristina. MEMBER OF TECHNICAL STAFF: Dr. Crews. History of Present Illness: The patient is a 33 year old M with a history of diabetes mellitus who was admitted because of increased redness, increased pain, and increased swelling in his lower abdominal wall area over the last 6 days. He had some fever and chills. In the emergency department, he underwent bedside incision and drainage by the ER physician. He was started on Vancomycin and Zosyn. His WBC initially was 16.2 and has improved to 11.2. His HgbA1c was 8.1. His Lactate was 3.4 and has improved to 1.5. He has a large abdominal panniculus that is complicating the wound care involving this abscess wound in the lower anterior abdominal skin crease. I was asked to evaluate this patient for surgical options for further treatment and for wound care options. Past Medical History Past Medical History (Chronic Problems): Chronic Problems Smoker (Chronic) Intertrigo (Chronic) abdominal wall skin crease intertrigo Abdominal panniculus, symptomatic (Chronic) Morbid obesity (Chronic) Hyperlipidemia (Chronic) Gastroesophageal reflux disease (Chronic) Type 2 diabetes mellitus (Chronic) Benign essential hypertension (Chronic) Allergies No Known Allergies Allergy (Verified 01/25/19 12:17) Current Medications Acetaminophen (Tylenol) 650 mg PO Q6H PRN PRN PRN Reason: Mild Pain (1-3)/Temp > 100.7 F Last Admin: 01/27/19 12:03 Dose: 650 mg Albuterol Sulfate (Ventolin Aerosols) 2.5 mg INHALATION Q4H PRN PRN PRN Reason: Shortness of breath, wheezing Last Admin: 01/26/19 03:48 Dose: 2.5 mg Chlorthalidone (Hygroton) 25 mg PO DAILY [facility] Last Admin: 01/28/19 08:40 Dose: 25 mg Citalopram Hydrobromide (Celexa) 40 mg PO DAILY [facility] Last Admin: 01/28/19 08:45 Dose: 40 mg Dextrose (D50w Syringe) 0 gm IV X1 PRN; Protocol PRN Reason: Hypoglycemia Docusate Sodium (Colace) 100 mg PO BID [facility] Last Admin: 01/28/19 08:41 Dose: 100 mg Doxazosin Mesylate (Cardura) 4 mg PO QHS [facility] Last Admin: 01/27/19 21:13 Dose: 4 mg Gabapentin (Neurontin) 300 mg PO QHS [facility] Last Admin: 01/27/19 21:13 Dose: 300 mg Glipizide (Glipizide Er) 2.5 mg PO DAILY@0800 [facility] Last Admin: 01/28/19 08:41 Dose: 2.5 mg Glucagon () 1 mg IM .X1 PRN PRN Reason: Hypoglycemia Hydralazine HCl (Apresoline Iv) 10 mg IV Q8H PRN PRN PRN Reason: for SBP>160 Last Admin: 01/28/19 03:13 Dose: 10 mg Vancomycin HCl 1,750 mg/ (Sodium Chloride) 535 mls @ 250 mls/hr IV Q12H [facility] Last Admin: 01/28/19 03:07 Dose: 250 mls/hr Vancomycin IV Pharmacy to Dose (1 ea/ Sodium Chloride) 500 mls @ 250 mls/hr IV X1 PRN; Protocol PRN Reason: Rx to Dose Insulin Human Lispro (Humalog Kwikpen (Bkc)) [facility]; Protocol Last Admin: 01/28/19 11:36 Dose: Not Given Lisinopril (Zestril) 40 mg PO DAILY [facility] Last Admin: 01/28/19 08:41 Dose: 40 mg Met[facility]) [facility] Last Admin: 01/28/19 08:40 Dose: 500 mg Morphine Sulfate () 1 - 2 mg IV Q3H PRN PRN PRN Reason: Severe pain (7-10/10) Last Admin: 01/26/19 15:34 Dose: 2 mg Nutritional Formula (Lactose Free) (Glucerna Shake) 120 ml PO TIDCM [facility] Last Admin: 01/28/19 11:36 Dose: 120 ml Nystatin (Mycostatin Powder) 1 applic TOPICAL BID [facility]; Protocol Last Admin: 01/28/19 08:54 Dose: 1 applicatio Ondansetron HCl (Zofran) 4 mg IV Q8H PRN PRN PRN Reason: NAUSEA/VOMITING Oxycodone HCl (Oxyir) 5 mg PO Q6H PRN PRN PRN Reason: Moderate Pain (4-6/10) Last Admin: 01/26/19 15:34 Dose: 5 mg Pantoprazole Sodium (Protonix) 40 mg PO BID [facility] Last Admin: 01/28/19 08:41 Dose: 40 mg Pravastatin Sodium (Pravachol) 40 mg PO DAILY@2200 [facility] Last Admin: 01/27/19 21:13 Dose: 40 mg Sodium Chloride () 5 - 15 ml IV UD PRN PRN Reason: SALINE FLUSH Last Admin: 01/26/19 15:35 Dose: 10 ml Verapamil HCl (Calan Sr) 480 mg PO QHS [facility] Last Admin: 01/27/19 21:13 Dose: 480 mg Home Medications: Ambulatory Orders Medication Instructions Recorded Albuterol Inhaler [Ventolin Hfa] 2 puff INHALATION Q4H PRN PRN 01/25/19 Chlorthalidone 25 mg PO DAILY 01/25/19 Citalopram [Celexa] 40 mg PO DAILY 01/25/19 Doxazosin Mesylate [Cardura] 4 mg PO QHS 01/25/19 Esomeprazole Magnesium 40 mg PO BIDCM 01/25/19 Fluticasone 0.05% [Flonase Nasal 2 sprays PO QHS 01/25/19 [place]] Gabapentin [Neurontin] 300 mg PO DAILY 01/25/19 Glipizide [Glipizide ER] 2.5 mg PO DAILY 01/25/19 Liraglutide [Victoza] 0.6 mg SQ DAILY 01/25/19 Lisinopril 40 mg PO DAILY 01/25/19 Metformin HCl 500 mg PO BID 01/25/19 Pravastatin [Pravachol] 40 mg PO DAILY 01/25/19 Verapamil HCl [Verapamil ER] 480 mg PO QHS 01/25/19 Acetaminophen [Tylenol Tablet] 650 mg PO Q6H PRN PRN tablet 01/28/19 Ibuprofen 600 mg PO 4X/DAY PRN #1 tablet 01/28/19 Smz/Tmp Ds [Bactrim Ds] 1 tablet PO BID #8 tablet 01/28/19 sulfamethoxazole 800 1 tab PO Q12H 10 Days #20 tab 01/31/19 mg-trimethoprim 160 mg tablet Surgical History: tonsillectomy Psychiatric History: No pertinent psych hx Lives: Spouse/ Significant Other Smoking Status: Current every day smoker Tobacco Use: Cigarettes Alcohol: None Drugs: None - *Family History Maternal History Items: No pertinent history Paternal History Items: Diabetes, - - Congestive heart failure. Review of Systems Comment: Constitutional: Reports: Chills, Fever. Denies: Anorexia, Weakness. Eyes: Denies: Blurred vision, Double vision, Drainage, Redness. HEENT: Denies: Difficulty Hearing, Ear Pain, Eye Pain, Nasal Congestion, Sore Throat. Cardiovascular: Denies: Chest Pain, Chest Pressure, Chest Tightness, Heaviness, Light Headedness, Palpitations, Syncope. Respiratory: Denies: Cough, Pleuritic Pain, Shortness of Breath, Sputum production, Wheezing. Gastrointestinal: Reports: Abdominal Pain. Denies: Constipation, Diarrhea, Nausea, Vomiting. Genitourinary: Denies: Dysuria, Frequency, Hematuria. Musculoskeletal: Denies: Arm Pain, Back Pain, Foot Pain. Skin: Denies: Dryness, Rash. Neurological: Denies: Balance problems, Change in Speech, Slurred speech, Confusion, Incoordination, Numbness. Psychiatric: Denies: Anxiety, Depression. Endocrine: Denies: Change in Body Habitus, Polydipsia - Physical Exam General: Alert, Oriented x3. HEENT: PERRLA, EOMI. Oral: Moist Mucosa. Neck: Supple, nontender. No cervical adenopathy. Lungs: Clear to auscultation. Cardiovascular: Regular rate, Regular Rhythm. Abdomen: Bowel Soft, Non-Distended. Has large abdominal panniculus with associated panniculitis. Extremities: No clubbing, No cyanosis, No edema. Skin: No rashes, Ulcer/ Wound - Lower anterior abdominal wall wound, status post incision and drainage. Measures 1.5 x 3.5 x 2.5 cm. Surrounding redness has resolved. Lymphatic: No Cervical, Supraclavicular, or Inguinal Adenopathy Neurological: Cranial nerves II-XII grossly intact. Psych/Mental Status: Normal Affect, Appropriate, Alert and oriented to time, place, person, mood and affect. Vital Signs Vital Signs Temp Pulse Resp BP Pulse Ox 98.5 F 91 18 161/93 H 96 01/28/19 08:30 01/28/19 08:30 01/28/19 08:30 01/28/19 08:30 01/28/19 08:30 Oxygen Delivery Method Room Air Weight: 478 lb 13.504 oz Body Mass Index (BMI) 59.8 Intake and Output for Last 24 Hours 01/26/19 01/27/19 01/28/19 23:59 23:59 23:59 Intake Total 4635 / 4635 6473 / 6473 2198 Balance 4635 / 4635 6473 / 6473 2198 Microbiology Past 72 Hours 01/25/19 14:42 Blood Culture - Preliminary Blood Culture (Wb) - Left Hand No growth in 48 hours. 01/25/19 13:43 Blood Culture - Preliminary Blood Culture (Wb) - Venous No growth in 48 hours. 01/25/19 17:45 Gram Stain - Final Wound Abcess - Abdominal Wound Culture - Preliminary No growth-Final to follow POC Glucose 01/28/19 01/28/19 01/27/19 11:35 06:46 21:06 POC Glucose 138 H 147 H 137 H 01/27/19 17:09 POC Glucose 120 H Assessment/Plan All Active Problems Open wound anterior abdominal wall (Acute) Panniculitis (Acute) Abdominal wall abscess (Acute) Severe sepsis (Acute) Cellulitis and abscess of other specified site (Acute) Hyperglycemia due to type 2 diabetes mellitus (Acute) 1. Open surgical wound abdominal wall, s/p I&D abscess. 2. Abscess abdominal wall. 3. Abdominal panniculus. 4. Panniculitis. 5. Abdominal wall skin crease intertrigo. 6. Diabetes mellitus. 7. Obesity. 8. Sepsis. 9. Smoker. The open surgical wound abdominal wall is stable. Some undermining is noted. It is in the abdominal wall skin crease. A VAC may not be able to maintain a seal secondary to buildup of moisture and sweat in the area. Would proceed with saline dressing changes twice a day. There is no urgent need to close this wound at this time. I would let it heal in secondarily with wound care. The surrounding cellulitis has resolved since the recent I&D and the use of Vancomycin and Zosyn. Wound culture negative thus far. Anticipate a Staph organism. Since the wound is stable and clean, can send home on po antibiotics. For Staph, I would choose either Augmentin, Doxycycline, or Bactrim. There is no urgent need for operative intervention at this time. Also the patient is anxious to get back to work. 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 After discharge can followup at the Wound Center. With his history of diabetes mellitus, he is at risk for recurrent necrotizing infections and abscesses in his abdominal wall because of the large size of the panniculus. The recent abscess was in the abdominal wall skin crease. At some point in the future, he would benefit from an abdominal panniculectomy and debridement of necrotizing soft tissue infections. The wound would be left open and postop wound care would start with the VAC. If there is a plateau in the healing process, can proceed with delayed secondary wound closure or skin grafting. Since wound closure is elective, his HgbA1c needs to be less than 8. During this admission it was 8.1. Depending on the amount of bleeding with debridement of the abdominal panniculus, multiple excisions may be necessary several months apart to allow healing. If surgery becomes necessary will check a Prealbumin as I anticipate increased metabolic demands for adequate healing. Encourage nutritional supplementation with protein to help the healing process. Patient was informed of the risks and complications of the procedure including alternatives to surgery. These were discussed with the patient personally. Patient voices understanding and wishes to proceed with the current plan of wound care and antibiotics. He voices understanding that operative intervention will be necessary at some point. He will let us know when he wants to proceed. The goal is to proceed with the surgery electively before another episode of sepsis occurs that can be life threatening. Surgery would be done under general anesthesia with a surgical observation overnight stay in the hospital. Tissue that is removed would be sent to Pathology for analysis to rule out carcinoma and to Microbiology for culture. A positive culture will necessitate antibiotic therapy. Encouraged patient to stop smoking as it may have deleterious effects on wound healing. Code Visit Inpatient E&M: 26522 Init Hosp L2 - ICD-10 - S31.109A, L02.211, E65, M79.3, L30.4, E11.9, E66.01, A41.9, F17.200
[2019-01-28] MEDS: 0.9% NaCl Peripheral Flush Adult/Peds IV (14:48)
--- NOTE | 2019-01-28 15:53 | DCINST_ITS ---
- Discharge Diagnoses Current Active Problems: Current Active and Chronic Problems Severe sepsis (Acute) Cellulitis and abscess of other specified site (Acute) Hyperglycemia due to type 2 diabetes mellitus (Acute) You will use the following diet at home:: Calorie/Carbohydrate Controlled (specify 1200, 1400, etc) - 1800 kcal/day Your food should be the consistency of: Regular Your liquids should be the consistency of: Regular/Thin Discharge Activity: Return to Normal Activity Call your doctor if you observe: Fever of 101 or Higher, - - increased redness and pain in abdomen Additional Dressing/Incision Instructions:: cleanse wound to right lower abdomen with NS. pat dry. repack with NS moistened gauze, followed by dry dressing and ABD pad. secure with Medipore tape. change BID and prn. Allergies/Adverse Reactions: Allergies No Known Allergies Allergy (Verified 01/25/19 12:17) Medications to take at Discharge Albuterol Inhaler [Ventolin Hfa] 2 puff INHALATION Q4H PRN PRN 01/25/19 Chlorthalidone 25 mg PO DAILY 01/25/19 Citalopram [Celexa] 40 mg PO DAILY 01/25/19 Doxazosin Mesylate [Cardura] 4 mg PO QHS 01/25/19 Esomeprazole Magnesium 40 mg PO BIDCM 01/25/19 Fluticasone 0.05% [Flonase Nasal [place]] 2 sprays PO QHS 01/25/19 Gabapentin [Neurontin] 300 mg PO DAILY 01/25/19 Glipizide [Glipizide ER] 2.5 mg PO DAILY 01/25/19 Liraglutide [Victoza] 0.6 mg SQ DAILY 01/25/19 Lisinopril 40 mg PO DAILY 01/25/19 Metformin HCl 500 mg PO BID 01/25/19 Pravastatin [Pravachol] 40 mg PO DAILY 01/25/19 Verapamil HCl [Verapamil ER] 480 mg PO QHS 01/25/19 Acetaminophen [Tylenol Tablet] 650 mg PO Q6H PRN PRN tablet 01/28/19 Ibuprofen 600 mg PO 4X/DAY PRN #1 tablet 01/28/19 Smz/Tmp Ds [Bactrim Ds] 1 tablet PO BID #8 tablet 01/28/19 The following prescriptions were given: Smz/Tmp Ds [Bactrim Ds] 1 tablet PO BID #8 tablet Ibuprofen 600 mg PO 4X/DAY PRN #1 tablet PRN Reason: Pain Primary Care Physician: Pablo Lloyd MD [Primary Care Provider] - Within 2 Weeks Test Results: Test results from this visit will be discussed in further detail at your follow- up appointment, if applicable. Please Follow Up With: Clinic,Wound When: 1 week Proposed Discharge Date: 01/28/19
--- NOTE | 2019-01-28 15:56 | PCM.DC.SUM ---
Discharge Date and Diagnosis - Problem List Patient Problems: Active and Suspected Problems Severe sepsis (Acute) Cellulitis and abscess of other specified site (Acute) Hyperglycemia due to type 2 diabetes mellitus (Acute) Date of Admission: 01/25/19 Date of Discharge: 01/28/19 - Primary Discharge Diagnosis Active and Suspected Problems Severe sepsis (Acute) Cellulitis and abscess of other specified site (Acute) Hyperglycemia due to type 2 diabetes mellitus (Acute) 1. Severe sepsis present of arrival 2/ #2 resolved 2. Abdominal wall cellulitis and abscess Clinically improving and erythema essentially resolved Culture performed on was negative as of the . W No further debridement necessary discharge with 4 more days of Bactrim to complete 7 days of abx. 3. Hyponatremia improved Likely secondary to chlorthalidone 4. Hypokalemia Improved Likely secondary to chlorthalidone 5. Diabetes mellitus type 2 Fair control Continue with glipizide, metformin and sliding scale insulin - Secondary Discharge Diagnosis Chronic Problems Morbid obesity (Chronic) Hyperlipidemia (Chronic) Gastroesophageal reflux disease (Chronic) Type 2 diabetes mellitus (Chronic) Benign essential hypertension (Chronic) Hospital Course and Treatment Consultations 01/25/19 15:41 Consult: Onc/Wound/insurance account representative Routine Comment: Rubi Cristina MD: general surgery Bravo Crews MD: PRS Operations: - - I+D of abdominal abscess Procedures: None Summary of Care Provided: The patient is a 33 year old M tinnitus. Patient had a bedside I&D performed that did alleviate some of his abdominal pain. Patient was started on vancomycin and Zosyn eventually down to vancomycin. Cultures came back negative but patient's cellulitis overall is improved. Patient will complete 4 more days of Bactrim for antibiotics. Patient was seen in consultation by general surgery who then consulted plastics to see if any further debridement was necessary. No further debridement was necessary. Patient will be discharged home and continue with wound care which she will require packing. Patient will be discharged to home with home health care. [] Patient Problems: Active and Suspected Problems Severe sepsis (Acute) Cellulitis and abscess of other specified site (Acute) Hyperglycemia due to type 2 diabetes mellitus (Acute) - Physical Exam General: Alert, No apparent distress HEENT: Atraumatic, Normocephalic Oral: Moist Mucosa, No Gingival or Mucosal Lesions/ Ulcerations Skin: - - Resolving erythema of his pannus and suprapubic region. Vital Signs Temp Pulse Resp BP Pulse Ox 37.0 C 84 16 165/109 H 98 01/28/19 14:55 01/28/19 14:55 01/28/19 14:55 01/28/19 14:55 01/28/19 14:55 Oxygen Delivery Method Room Air Weight: 217.2 kg Body Mass Index (BMI) 59.8 Intake and Output for Last 24 Hours 01/26/19 01/27/19 01/28/19 23:59 23:59 23:59 Intake Total 4635 / 4635 6473 / 6473 2198 / 2198 Balance 4635 / 4635 6473 / 6473 2198 / 2198 Microbiology Past 72 Hours 01/25/19 14:42 Blood Culture - Preliminary Blood Culture (Wb) - Left Hand No growth in 48 hours. 01/25/19 13:43 Blood Culture - Preliminary Blood Culture (Wb) - Venous No growth in 48 hours. 01/25/19 17:45 Gram Stain - Final Wound Abcess - Abdominal Wound Culture - Preliminary No growth-Final to follow POC Glucose 01/28/19 01/28/19 01/27/19 11:35 06:46 21:06 POC Glucose 138 H 147 H 137 H 01/27/19 17:09 POC Glucose 120 H Discharge Diet: 1800 Calorie Control Diet Discharge Activity: Return to Normal Activity Call your doctor if you observe: Fever of 101 or Higher, - - increased redness and pain in abdomen Additional Dressing/Incision Instructions:: cleanse wound to right lower abdomen with NS. pat dry. repack with NS moistened gauze, followed by dry dressing and ABD pad. secure with Medipore tape. change BID and prn. Home Medications: Medications to take at Discharge Albuterol Inhaler [Ventolin Hfa] 2 puff INHALATION Q4H PRN PRN 01/25/19 Chlorthalidone 25 mg PO DAILY 01/25/19 Citalopram [Celexa] 40 mg PO DAILY 01/25/19 Doxazosin Mesylate [Cardura] 4 mg PO QHS 01/25/19 Esomeprazole Magnesium 40 mg PO BIDCM 01/25/19 Fluticasone 0.05% [Flonase Nasal [place]] 2 sprays PO QHS 01/25/19 Gabapentin [Neurontin] 300 mg PO DAILY 01/25/19 Glipizide [Glipizide ER] 2.5 mg PO DAILY 01/25/19 Liraglutide [Victoza] 0.6 mg SQ DAILY 01/25/19 Lisinopril 40 mg PO DAILY 01/25/19 Metformin HCl 500 mg PO BID 01/25/19 Pravastatin [Pravachol] 40 mg PO DAILY 01/25/19 Verapamil HCl [Verapamil ER] 480 mg PO QHS 01/25/19 Acetaminophen [Tylenol Tablet] 650 mg PO Q6H PRN PRN tablet 01/28/19 Ibuprofen 600 mg PO 4X/DAY PRN #1 tablet 01/28/19 Smz/Tmp Ds [Bactrim Ds] 1 tablet PO BID #8 tablet 01/28/19 Following Prescrptions Were Given to Patient: Smz/Tmp Ds [Bactrim Ds] 1 tablet PO BID #8 tablet Ibuprofen 600 mg PO 4X/DAY PRN #1 tablet PRN Reason: Pain Primary Care Physician: Pablo Lloyd MD [Primary Care Provider] - Within 2 Weeks Please Follow Up With: Clinic,Wound When: 1 week Disposition: Home with Home Health Minutes spent on discharge:: 32 Patient Condition:: Good Medical Necessity - Tobacco Use Smoking Status: Current every day smoker Tobacco Use: Cigarettes Meaningful Use Info Meaningful Use Diagnoses (Choose all that apply): None applicable Code Visit Inpatient E&M: 44290 Disch Hosp
--- NOTE | 2019-01-28 15:59 | CASEMGMT ---
Social Work Note SW received referral for advanced directives. SW not able to meet with pt today, will follow up with pt tomorrow as time allows regarding advanced directives. Shannon Thornton CHEMICAL PLANT TECHNICAL DIRECTOR, HELP DESK MANAGER
--- NOTE | 2019-01-28 16:01 | DS.PCM_ITS ---
Discharge Date and Diagnosis - Problem List Patient Problems: Active and Suspected Problems Severe sepsis (Acute) Cellulitis and abscess of other specified site (Acute) Hyperglycemia due to type 2 diabetes mellitus (Acute) Date of Admission: 01/25/19 Date of Discharge: 01/28/19 - Primary Discharge Diagnosis Active and Suspected Problems Severe sepsis (Acute) Cellulitis and abscess of other specified site (Acute) Hyperglycemia due to type 2 diabetes mellitus (Acute) 1. Severe sepsis * present of arrival * 2/2 #2 * resolved 2. Abdominal wall cellulitis and abscess * Clinically improving and erythema essentially resolved * Culture performed on was negative as of the . W * No further debridement necessary * discharge with 4 more days of Bactrim to complete 7 days of abx. 3. Hyponatremia * improved * Likely secondary to chlorthalidone 4. Hypokalemia * Improved * Likely secondary to chlorthalidone 5. 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 Patient had a bedside I&D performed that did alleviate some of his abdominal pain. Patient was started on vancomycin and Zosyn eventually down to vancomycin. Cultures came back negative but patient's cellulitis overall is improved. Patient will complete 4 more days of Bactrim for antibiotics. Patient was seen in consultation by general surgery who then consulted plastics to see if any further debridement was necessary. No further debridement was necessary. Patient will be discharged home and continue with wound care which she will require packing. Patient will be discharged to home with home health care. [] Patient Problems: Active and Suspected Problems Severe sepsis (Acute) Cellulitis and abscess of other specified site (Acute) Hyperglycemia due to type 2 diabetes mellitus (Acute) - Physical Exam General: Alert, No apparent distress HEENT: Atraumatic, Normocephalic Oral: Moist Mucosa, No Gingival or Mucosal Lesions/ Ulcerations Skin: - - Resolving erythema of his pannus and suprapubic region. Vital Signs Temp Pulse Resp BP Pulse Ox 37.0 C 84 16 165/109 H 98 01/28/19 14:55 01/28/19 14:55 01/28/19 14:55 01/28/19 14:55 01/28/19 14:55 Oxygen Delivery Method Room Air Weight: 217.2 kg Body Mass Index (BMI) 59.8 Intake and Output for Last 24 Hours 01/26/19 01/27/19 01/28/19 23:59 23:59 23:59 Intake Total 4635 / 4635 6473 / 6473 2199 / 2199 Balance 4635 / 4635 6473 / 6473 219 / 219 Microbiology Past 72 Hours 01/25/19 14:42 Blood Culture - Preliminary Blood Culture (Wb) - Left Hand No growth in 48 hours. 01/25/19 13:43 Blood Culture - Preliminary Blood Culture (Wb) - Venous No growth in 48 hours. 01/25/19 17:45 Gram Stain - Final Wound Abcess - Abdominal Wound Culture - Preliminary No growth-Final to follow POC Glucose 01/28/19 01/28/19 01/27/19 11:35 06:46 21:06 POC Glucose 138 H 147 H 137 H 01/27/19 17:09 POC Glucose 120 H Discharge Diet: 1800 Calorie Control Diet Discharge Activity: Return to Normal Activity Call your doctor if you observe: Fever of 101 or Higher, - - increased redness and pain in abdomen Additional Dressing/Incision Instructions:: cleanse wound to right lower abdomen with NS. pat dry. repack with NS moistened gauze, followed by dry dressing and ABD pad. secure with Medipore tape. change BID and prn. Home Medications: Medications to take at Discharge Albuterol Inhaler [Ventolin Hfa] 2 puff INHALATION Q4H PRN PRN 01/25/19 Chlorthalidone 25 mg PO DAILY 01/25/19 Citalopram [Celexa] 40 mg PO DAILY 01/25/19 Doxazosin Mesylate [Cardura] 4 mg PO QHS 01/25/19 Esomeprazole Magnesium 40 mg PO BIDCM 01/25/19 Fluticasone 0.05% [Flonase Nasal [place]] 2 sprays PO QHS 01/25/19 Gabapentin [Neurontin] 300 mg PO DAILY 01/25/19 Glipizide [Glipizide ER] 2.5 mg PO DAILY 01/25/19 Liraglutide [Victoza] 0.6 mg SQ DAILY 01/25/19 Lisinopril 40 mg PO DAILY 01/25/19 Metformin HCl 500 mg PO BID 01/25/19 Pravastatin [Pravachol] 40 mg PO DAILY 01/25/19 Verapamil HCl [Verapamil ER] 480 mg PO QHS 01/25/19 Acetaminophen [Tylenol Tablet] 650 mg PO Q6H PRN PRN tablet 01/28/19 Ibuprofen 600 mg PO 4X/DAY PRN #1 tablet 01/28/19 Smz/Tmp Ds [Bactrim Ds] 1 tablet PO BID #8 tablet 01/28/19 Following Prescrptions Were Given to Patient: Smz/Tmp Ds [Bactrim Ds] 1 tablet PO BID #8 tablet Ibuprofen 600 mg PO 4X/DAY PRN #1 tablet PRN Reason: Pain Primary Care Physician: Pablo Lloyd MD [Primary Care Provider] - Within 2 Weeks Please Follow Up With: Clinic,Wound When: 1 week Disposition: Home with Home Health Minutes spent on discharge:: 32 Patient Condition:: Good Medical Necessity - Tobacco Use Smoking Status: Current every day smoker Tobacco Use: Cigarettes Meaningful Use Info Meaningful Use Diagnoses (Choose all that apply): None applicable Code Visit Inpatient E&M: 41126 Disch Hosp
[2019-01-28 17:10] LABS: Bedside Glucose 111 mg/dL (70-110)
== END 2019-01-28 17:16 | disposition home or self-care (01) | DRG 872 ==
LOC: ED 13:46 → MS3 14:32
PROVIDERS: Admitting Provider Hospitalist; Emergency Provider Emergency Medicine; Family Provider Family Medicine; PCP Internal Medicine
DX: A41.9 Sepsis, unspecified organism (principal); L03.311 Cellulitis of abdominal wall; E87.1 Hypo-osmolality and hyponatremia; Z68.43 Body mass index [BMI] 50.0-59.9, adult; E11.65 Type 2 diabetes mellitus with hyperglycemia; M79.3 Panniculitis, unspecified; R65.20 Severe sepsis without septic shock; E87.6 Hypokalemia; E78.5 Hyperlipidemia, unspecified; I10 Essential (primary) hypertension; K21.9 Gastro-esophageal reflux disease without esophagitis; E66.01 Morbid (severe) obesity due to excess calories; Z79.899 Other long term (current) drug therapy; L30.4 Erythema intertrigo; F17.210 Nicotine dependence, cigarettes, uncomplicated; G47.33 Obstructive sleep apnea (adult) (pediatric); F41.8 Other specified anxiety disorders; E11.42 Type 2 diabetes mellitus with diabetic polyneuropathy; J30.2 Other seasonal allergic rhinitis
CPT/HCPCS: 36415; 80048; 80202; 82962; 83036; 83605; 85025; 87040; 87070; 87077; 87205; 87640; 94640; 97802; 99283; 99406; J7030; J7040; A4216; J2405

== ENCOUNTER 2019-02-18 16:00 | Outpatient (RCR) | payer OTHER, SELFPAY ==
[2019-01-25 15:44] VITALS: BMI 59.8
[2019-02-04 14:36] VITALS: BP 153/88; PULSE 93; RESP 18; TEMP 37.1; BMI 59.8
--- NOTE | 2019-02-04 17:15 | PCM.WC.HP ---
(1) Open wound anterior abdominal wall Status: Acute Code(s): S31.109A - Unspecified open wound of abdominal wall, unspecified quadrant without penetration into peritoneal cavity, initial encounter (2) Abdominal wall abscess Status: Acute Code(s): L02.211 - Cutaneous abscess of abdominal wall (3) Abdominal panniculus, symptomatic Status: Chronic Code(s): E65 - Localized adiposity (4) Morbid obesity Status: Chronic Code(s): E66.01 - Morbid (severe) obesity due to excess calories (5) Type 2 diabetes mellitus Status: Chronic Code(s): E11.9 - Type 2 diabetes mellitus without complications History of Present Illness Date of Service: 02/04/19 Chief Complaint: Open wound lower abdomen skin crease History of Wound: Patient presented to the ED on 01/25/19 with an abdominal abscess and panniculitis. His abscess was drained initially in the ED and he was started on Vanc and Zosyn. He was also septic on admission. Both surgery and plastics were consulted. Patient was not interested in further surgery at this time because he wants to get back to work as soon as possible. He was sent home on Bactrim antibiotics and has been doing wet to dry dressing changes. His mother states she is having a difficult time packing the wound due to the opening decreasing in size. Past Medical History Past Medical History: Chronic Problems Smoker (Chronic) Intertrigo (Chronic) abdominal wall skin crease intertrigo Abdominal panniculus, symptomatic (Chronic) Morbid obesity (Chronic) Hyperlipidemia (Chronic) Gastroesophageal reflux disease (Chronic) Type 2 diabetes mellitus (Chronic) Benign essential hypertension (Chronic) Surgical History: tonsillectomy Allergies/Adverse Reactions: Allergies No Known Allergies Allergy (Verified 01/25/19 12:17) Home Medications: Ambulatory Orders Medication Instructions Recorded Albuterol Inhaler [Ventolin Hfa] 2 puff INHALATION Q4H PRN PRN 01/25/19 Chlorthalidone 25 mg PO DAILY 01/25/19 Citalopram [Celexa] 40 mg PO DAILY 01/25/19 Doxazosin Mesylate [Cardura] 4 mg PO QHS 01/25/19 Esomeprazole Magnesium 40 mg PO BIDCM 01/25/19 Fluticasone 0.05% [Flonase Nasal 2 sprays PO QHS 01/25/19 [place]] Gabapentin [Neurontin] 300 mg PO DAILY 01/25/19 Glipizide [Glipizide ER] 2.5 mg PO DAILY 01/25/19 Liraglutide [Victoza] 0.6 mg SQ DAILY 01/25/19 Lisinopril 40 mg PO DAILY 01/25/19 Metformin HCl 500 mg PO BID 01/25/19 Pravastatin [Pravachol] 40 mg PO DAILY 01/25/19 Verapamil HCl [Verapamil ER] 480 mg PO QHS 01/25/19 Acetaminophen [Tylenol Tablet] 650 mg PO Q6H PRN PRN tablet 01/28/19 Ibuprofen 600 mg PO 4X/DAY PRN #1 tablet 01/28/19 Smz/Tmp Ds [Bactrim Ds] 1 tablet PO BID #8 tablet 01/28/19 sulfamethoxazole 800 1 tab PO Q12H 10 Days #20 tab 01/31/19 mg-trimethoprim 160 mg tablet - Family History Maternal No pertinent history Paternal Diabetes, - - Congestive heart failure. Smoking Status: Heavy Smoker (>10/day) Review of Systems Constitutional: Denies: Anorexia, Chills, Fever Eyes: Denies: Pain, Vision Change HEENT: Denies: Difficulty Hearing, Difficulty Swallowing, Sinus Congestion Cardiovascular: Denies: Chest Pain, Palpitations Respiratory: Denies: Cough, Shortness of Breath Gastrointestinal: Denies: Diarrhea, Nausea, Vomiting Musculoskeletal: Denies: Joint stiffness, Joint swelling Skin: Reports: Wounds - lower abdomen under pannus Neurological: Denies: Balance problems, Change in Speech, Incoordination Psychiatric: Denies: Anxiety Endocrine: Denies: Heat/ Cold Intolerance, Polydipsia, Polyuria - Physical Exam Vital Signs Temp Pulse Resp BP 98.7 F 93 18 153/88 H 02/04/19 14:36 02/04/19 14:36 02/04/19 14:36 02/04/19 14:36 General: Alert, Oriented x3, Cooperative HEENT: Atraumatic Oral: Moist Mucosa Neck: Supple Lungs: Clear to auscultation, Normal air movement Cardiovascular: Regular rate, Regular Rhythm Abdomen: Soft, Obese, Tender - tenderness around the open wound site Extremities: Capillary Refill Less than 3 Seconds Skin: Ulcer/ Wound - open area mid lower abdomen under pannus Wound Measurements and Assessment WC - Nurse 1 - General Ulcer Measurement Start: 02/04/19 14:36 Freq: Status: Active Protocol: Activity Type Activity Date Activity User E-Sign Co-Sign Detail Recorded Client Recorded Date Recorded By Document 02/04/19 14:36 [id number] 02/04/19 15:00 02/04/19 14:36 Wound Center Nurse 1 [Ulcer Assessment] #1 Mid Panis -Combined with other wound No -Photo Taken Yes -Epithelialization None Present -Tunneling No -Undermining/Tunneling No -Circular Undermining No -Classification - Thickness Full Thickness without Exposed Support Structure -Exudate Amt Large -Exudate Type Yellow/Green -Wound Margin Flat & Intact -Granulation Amt None Present (0 %) -Granulation Quality N/A -Slough/Fibrin Yes -Necrosis Amt Medium (34-66%) -Necrotic Tissue Type Adherent Slough -Structure Exposed None/Limited to Skin Breakdown -Texture (Jovanna-wound Skin Appearance) No Abnormality Assessed -Moisture (Jovanna-wound Skin Appearance Assessed ) Weeping -Color (Jovanna-wound Skin Appearance) No Abnormality Assessed -Temperature (Jovanna-wound Skin No Abnormality Appearance) (Pt Warm) -Tenderness on Palpation (Jovanna-wound Yes Skin Appearance) -Ulcer Cleansing Rinsed/ Irrigated with Saline -Foul Odor after Cleansing No -Anesthetic Used 4% Lidocaine Solution WC - Nurse 2 - General Ulcer CM Notes Start: 02/04/19 14:36 Freq: Status: Active Protocol: Activity Type Activity Date Activity User E-Sign Co-Sign Detail Recorded Client Recorded Date Recorded By Document 02/04/19 15:47 [id number] 02/04/19 15:50 02/04/19 15:47 Wound Center Nurse 2 [Procedure/Treatment] -Time 15:49 -Correct Patient Yes -Correct Side, Site, Position Yes -Correct Procedure Yes -Procedure Performed Yes -Type of Procedure Debridement -Clinical Debridement Subcutaneous -Post Debridement Size (cm) - Length 0.7 -Post Debridement Size (cm) - Width 3.0 -Post Debridement Size (cm) - Depth 1.8 -Total Square Cm 2.10 -Wound/Ulcer Outcome Not Healed -Ulcer Cleansing Rinsed/ Irrigated with Saline -Foul Odor after Cleansing No -Bioengineered Tissue No -Bleeding Controlled with Pressure -Other tunneled 5-7:00 3.2cm -Offloading No -Treatment Response Procedure Tolerated Well [See Physician Procedure note for Specifics] Pain Scale: 0-10 Numeric [Pain] -Is Patient Pain Free? Yes Musculoskeletal: No Tenderness to Palpation of Joints or Extremities Neurological: Neuro grossly intact Psych/Mental Status: Normal Affect, Appropriate Debridement Note Post-Debridement Measurements/Treatment WC - Nurse 2 - General Ulcer CM Notes Start: 02/04/19 14:36 Freq: Status: Active Protocol: Activity Type Activity Date Activity User E-Sign Co-Sign Detail Recorded Client Recorded Date Recorded By Document 02/04/19 15:47 [id number] 02/04/19 15:50 02/04/19 15:47 Wound Center Nurse 2 #1 Mid Panis -Time 15:49 -Correct Patient Yes -Correct Side, Site, Position Yes -Correct Procedure Yes -Procedure Performed Yes -Type of Procedure Debridement -Clinical Debridement Subcutaneous -Post Debridement Size (cm) - Length 0.7 -Post Debridement Size (cm) - Width 3.0 -Post Debridement Size (cm) - Depth 1.8 -Total Square Cm 2.10 -Wound/Ulcer Outcome Not Healed -Ulcer Cleansing Rinsed/ Irrigated with Saline -Foul Odor after Cleansing No -Bioengineered Tissue No -Bleeding Controlled with Pressure -Other tunneled 5-7:00 3.2cm -Offloading No -Treatment Response Procedure Tolerated Well Pain Scale: 0-10 Numeric Is Patient Pain Free? Yes Wound debrided: mid lower abdomen Type of Debridement: Excisional debridement Anesthesia Used: 4% Lidocaine Solution Depth: Down to and including healthy tissue, in the subcutaneous layer Percentage of wound debrided: 100 Instrument Used: 5mm curette Severity: Fat Layer Exposed Amount of bleeding with debridement: Mild Bleeding Controlled with: Pressure Patient tolerated procedure well Assessment/Plan Assessment: 1. Open wound anterior abdominal wall. 2. Abdominal wall abscess. 3. Abdominal panniculus, symptomatic. 4. Morbid obesity. 5. Type 2 Diabetes Mellitus Plan: Patient presented to the ED on 01/25/19 with an abdominal abscess and panniculitis. His abscess was drained initially in the ED and he was started on Vanc and Zosyn. He was also septic on admission. Both surgery and plastics were consulted. Patient was not interested in further surgery at this time because he wants to get back to work as soon as possible. He was sent home on Bactrim antibiotics and has been doing wet to dry dressing changes. His mother states she is having a difficult time packing the wound due to the opening decreasing in size. We will change wound care to Dakins solution once daily. His HgA1C was 8.2 while hospitalized, he is on Victoza. He will continue the Bactrim. Spoke with Dr. Crews about the opening of the wound closing. He will evaluate the opening next Sunday at the wound center.
[2019-02-10 09:37] VITALS: BP 160/91; PULSE 90; RESP 22; TEMP 35.8; BMI 59.8
--- NOTE | 2019-02-10 22:37 | PCM.WC.PN ---
Type of Wound Date of Service: 02/10/19 Chief Complaint: Open abscess wound right lower anterior abdominal wall. History of Wound: Patient presented to the ED on 01/25/19 with an abdominal abscess and panniculitis. His abscess was drained initially in the ED and he was started on Vanc and Zosyn. Further surgery with a panniculectomy was suggested. Patient was not interested in further surgery at this time because he wants to get back to work as soon as possible. Will plan on surgery later. He is aware that further infections may develop. He was sent home on Bactrim antibiotics and has been tolerating Dakin's dressing changes. His wound culture showed Coag negative Staph. His mother states she is having a difficult time packing the wound due to the opening decreasing in size. Today he denies fever. His appetite is ok. Progress of Wound: Improved. - Physical Exam Vital Signs Temp Pulse Resp BP 96.5 F L 90 22 H 160/91 H 02/10/19 09:37 02/10/19 09:37 02/10/19 09:37 02/10/19 09:37 Wound Measurements and Assessment WC - Nurse 1 - General Ulcer Measurement Start: 02/04/19 14:36 Freq: Status: Active Protocol: Activity Type Activity Date Activity User E-Sign Co-Sign Detail Recorded Client Recorded Date Recorded By Document 02/10/19 09:37 DL [id number] 02/10/19 09:45 DL 02/10/19 09:37 Wound Center Nurse 1 [Ulcer Assessment] #1 Mid Panis -Current Size (cm) - Length 0.5 -Current Size (cm) - Width 2 -Current Size (cm) - Depth 2 -Total Square Cm 1.0 -Photo Taken No -Tunneling No -Undermining/Tunneling Yes -Undermining/Tunneling Starts (O' 2 clock) -Undermining/Tunneling Ends (O'clock) 4 -Maximum Distance (cm) 2.4 -Exudate Amt Small -Foul Odor after Cleansing No -Anesthetic Used 4% Lidocaine Solution Debridement Note Post-Debridement Measurements/Treatment WC - Nurse 2 - General Ulcer CM Notes Start: 02/04/19 14:36 Freq: Status: Active Protocol: Activity Type Activity Date Activity User E-Sign Co-Sign Detail Recorded Client Recorded Date Recorded By Document 02/04/19 15:47 [id number] 02/04/19 15:50 02/04/19 15:47 Wound Center Nurse 2 #1 Mid [place] -Time 15:49 -Correct Patient Yes -Correct Side, Site, Position Yes -Correct Procedure Yes -Procedure Performed Yes -Type of Procedure Debridement -Clinical Debridement Subcutaneous -Post Debridement Size (cm) - Length 0.7 -Post Debridement Size (cm) - Width 3.0 -Post Debridement Size (cm) - Depth 1.8 -Total Square Cm 2.10 -Wound/Ulcer Outcome Not Healed -Ulcer Cleansing Rinsed/ Irrigated with Saline -Foul Odor after Cleansing No -Bioengineered Tissue No -Bleeding Controlled with Pressure Silver Nitrate -Other tunneled 5-7:00 3.2cm -Offloading No -Treatment Response Procedure Tolerated Well Pain Scale: 0-10 Numeric Is Patient Pain Free? Yes Wound debrided: #1 Right lower anterior abdominal wall. Laterality: Right Wound Grade/Stage: 2. Type of Debridement: Excisional debridement Anesthesia Used: 4% Lidocaine Solution, - - Xylocaine with epinephrine injection before excising excess skin and opening up the undermined area inferiorly. Depth: Down to and including healthy tissue, in the subcutaneous layer Percentage of wound debrided: 100 Instrument Used: 5mm curette, #15 blade Tissue Removed: skin and subcutaneous tissue. Severity: Fat Layer Exposed Amount of bleeding with debridement: Mild Bleeding Controlled with: Pressure, Silver Nitrate Patient tolerated procedure well Assessment/Plan Assessment: 1. Open abscess wound right lower anterior abdominal wall. 2. Abdominal wall abscess. 3. Abdominal panniculus with panniculitis. 4. Abdominal wall skin crease intertrigo. 4. Morbid obesity. 5. Diabetes Mellitus. 6. Smoker. Plan: Continue Dakin's dressing changes. The wound care should be easier as I debrided the wound with a scalpel and opened up the undermined area inferiorly. He is finishing the Bactrim. His wound culture showed Coag negative Staph. His HgA1C was 8.1 while hospitalized, and he is on Victoza. Encourage nutritional supplementation with protein to help the healing process. Discussed with the patient that abdominal panniculectomy can be done to help minimize further infections in the future. Due to the large size of the pannus, the amount of tissue removed at one time is limited to the amount of blood loss and the stability of the patient intra-operatively. He is aware that multiple procedures may be necessary. He wants to wait on further surgery at this time because of his work. Followup one week.
[2019-02-18 16:13] VITALS: BP 152/99; PULSE 74; RESP 18; TEMP 36.6; BMI 59.8
--- NOTE | 2019-02-18 16:59 | PCM.WC.PN ---
(1) Open wound anterior abdominal wall Status: Chronic Code(s): S31.109A - Unspecified open wound of abdominal wall, unspecified quadrant without penetration into peritoneal cavity, initial encounter (2) Abdominal wall abscess Status: Chronic Code(s): L02.211 - Cutaneous abscess of abdominal wall (3) Abdominal panniculus, symptomatic Status: Chronic Code(s): E65 - Localized adiposity (4) Morbid obesity Status: Chronic Code(s): E66.01 - Morbid (severe) obesity due to excess calories (5) Type 2 diabetes mellitus Status: Chronic Code(s): E11.9 - Type 2 diabetes mellitus without complications Type of Wound Date of Service: 02/18/19 Chief Complaint: Open abscess wound right lower anterior abdominal wall. History of Wound: Patient presented to the ED on 01/25/19 with an abdominal abscess and panniculitis. His abscess was drained initially in the ED and he was started on Vanc and Zosyn. Further surgery with a panniculectomy was suggested. Patient was not interested in further surgery at this time because he wants to get back to work as soon as possible. Will plan on surgery later. He is aware that further infections may develop. He was sent home on Bactrim antibiotics and has been tolerating Dakin's dressing changes. His wound culture showed Coag negative Staph. His mother states she is having a difficult time packing the wound due to the opening decreasing in size. The wound care should be easier as Dr. Crews debrided the wound with a scalpel and opened up the undermined area inferiorly on 02/10/2019. Today he denies fever. His appetite is ok. Progress of Wound: Wound is improved, beefy red looking. - Physical Exam Vital Signs Temp Pulse Resp BP 97.8 F 74 18 152/99 H 02/18/19 16:13 02/18/19 16:13 02/18/19 16:13 02/18/19 16:13 General: Alert, Oriented x3, Cooperative HEENT: Atraumatic Oral: Moist Mucosa Lungs: Normal air movement Cardiovascular: Regular rate Abdomen: Obese Extremities: Capillary Refill Less than 3 Seconds, Edema Skin: Ulcer/ Wound - Ulcer under his pannus Wound Measurements and Assessment WC - Nurse 1 - General Ulcer Measurement Start: 02/04/19 14:36 Freq: Status: Active Protocol: Activity Type Activity Date Activity User E-Sign Co-Sign Detail Recorded Client Recorded Date Recorded By Document 02/18/19 16:13 AN [id number] 02/18/19 16:25 AN 02/18/19 16:13 Wound Center Nurse 1 [Ulcer Assessment] #1 Mid Panis -Current Size (cm) - Length 1.2 -Current Size (cm) - Width 2.5 -Current Size (cm) - Depth 2.0 -Total Square Cm 3.00 -Classification - Thickness Full Thickness without Exposed Support Structure -Exudate Amt Medium -Exudate Type Serosanguineous -Wound Margin Distinct, Outline Attached -Granulation Amt Large (67-100%) -Granulation Quality Red -Slough/Fibrin Yes -Necrosis Amt Small (1-33%) -Necrotic Tissue Type Adherent Slough -Structure Exposed Fat Layer Exposed -Texture (Jovanna-wound Skin Appearance) Assessed -Moisture (Jovanna-wound Skin Appearance Assessed ) -Color (Jovanna-wound Skin Appearance) Assessed -Temperature (Jovanna-wound Skin No Abnormality Appearance) (Pt Warm) -Tenderness on Palpation (Jovanna-wound Yes Skin Appearance) -Ulcer Cleansing Rinsed/ Irrigated with Saline -Foul Odor after Cleansing No -Anesthetic Used 4% Lidocaine Solution WC - Nurse 2 - General Ulcer CM Notes Start: 02/04/19 14:36 Freq: Status: Active Protocol: Activity Type Activity Date Activity User E-Sign Co-Sign Detail Recorded Client Recorded Date Recorded By Document 02/18/19 16:34 [email or web address] [id number] 02/18/19 16:36 02/18/19 16:34 Wound Center Nurse 2 [Procedure/Treatment] -Time 16:35 -Correct Patient Yes -Correct Side, Site, Position Yes -Correct Procedure Yes -Procedure Performed Yes -Type of Procedure Debridement -Clinical Debridement Subcutaneous -Post Debridement Size (cm) - Length 1.4 -Post Debridement Size (cm) - Width 2.8 -Post Debridement Size (cm) - Depth 1.8 -Total Square Cm 3.92 -Wound/Ulcer Outcome Not Healed -Ulcer Cleansing Rinsed/ Irrigated with Saline -Foul Odor after Cleansing No -Bioengineered Tissue No -Bleeding Controlled with Pressure -Offloading No -Treatment Response Procedure Tolerated Well [See Physician Procedure note for Specifics] Pain Scale: 0-10 Numeric [Pain] -Is Patient Pain Free? Yes Musculoskeletal: No Tenderness to Palpation of Joints or Extremities Neurological: Neuro grossly intact Psych/Mental Status: Normal Affect, Appropriate Debridement Note Post-Debridement Measurements/Treatment - Nurse 2 - General Ulcer CM Notes Start: 02/04/19 14:36 Freq: Status: Active Protocol: Activity Type Activity Date Activity User E-Sign Co-Sign Detail Recorded Client Recorded Date Recorded By Document 02/04/19 15:47 [id number] 02/04/19 15:50 Document 02/18/19 16:34 [id number] 02/18/19 16:36 02/04/19 02/18/19 15:47 16:34 Wound Center Nurse 2 #1 Mid Panis -Time 15:49 16:35 -Correct Patient Yes Yes -Correct Side, Site, Position Yes Yes -Correct Procedure Yes Yes -Procedure Performed Yes Yes -Type of Procedure Debridement Debridement -Clinical Debridement Subcutaneous Subcutaneous -Post Debridement Size (cm) - Length 0.7 1.4 -Post Debridement Size (cm) - Width 3.0 2.8 -Post Debridement Size (cm) - Depth 1.8 1.8 -Total Square Cm 2.10 3.92 -Wound/Ulcer Outcome Not Healed Not Healed -Ulcer Cleansing Rinsed/ Rinsed/ Irrigated with Irrigated with Saline Saline -Foul Odor after Cleansing No No -Bioengineered Tissue No No -Bleeding Controlled with Pressure Pressure -Other tunneled 5-7:00 3.2cm -Offloading No No -Treatment Response Procedure Procedure Tolerated Well Tolerated Well Pain Scale: 0-10 Numeric Is Patient Pain Free? Yes Yes Wound debrided: Ulcer on lower abdomen under his pannus Type of Debridement: Excisional debridement Anesthesia Used: 4% Lidocaine Solution Depth: Down to and including healthy tissue, in the subcutaneous layer Percentage of wound debrided: 100 Instrument Used: 7mm curette Tissue Removed: Subcutaneous tissue and slough Severity: Fat Layer Exposed Amount of bleeding with debridement: Mild Bleeding Controlled with: Compression and gauze Patient tolerated procedure well Assessment/Plan Assessment: 1. Open abscess wound right lower anterior abdominal wall. 2. Abdominal wall abscess. 3. Abdominal panniculus with panniculitis. 4. Abdominal wall skin crease intertrigo. 4. Morbid obesity. 5. Diabetes Mellitus. 6. Smoker. Plan: Continue Dakin's dressing changes. The wound care should be easier as Dr. Crews debrided the wound with a scalpel and opened up the undermined area inferiorly. He is finishing the Bactrim. His wound culture showed Coag negative Staph. His HgA1C was 8.1 while hospitalized, and he is on Victoza. Encourage nutritional supplementation with protein to help the healing process. Discussed with the patient that abdominal panniculectomy can be done to help minimize further infections in the future. Due to the large size of the pannus, the amount of tissue removed at one time is limited to the amount of blood loss and the stability of the patient intra-operatively. He is aware that multiple procedures may be necessary. He wants to wait on further surgery at this time because of his work. Followup 2 weeks due to me be out of town. Code Visit 111xxx-113xx: [id number] Eusebia subq tissue 20 sq cm/<
== END 2019-03-02 23:59 ==
LOC: WC 16:00
PROVIDERS: Family Provider Internal Medicine; PCP Internal Medicine; Visit Provider Nurse Practitioner Family
DX: L02.211 Cutaneous abscess of abdominal wall (principal); M79.3 Panniculitis, unspecified; E11.9 Type 2 diabetes mellitus without complications; E66.01 Morbid (severe) obesity due to excess calories; E78.5 Hyperlipidemia, unspecified; L30.4 Erythema intertrigo; K21.9 Gastro-esophageal reflux disease without esophagitis; I10 Essential (primary) hypertension; Z68.43 Body mass index [BMI] 50.0-59.9, adult; Z71.3 Dietary counseling and surveillance; Z79.899 Other long term (current) drug therapy; Z79.84 Long term (current) use of oral hypoglycemic drugs; F17.200 Nicotine dependence, unspecified, uncomplicated; L98.492 Non-pressure chronic ulcer of skin of other sites with fat layer exposed
CPT/HCPCS: 11042; 99213; G0463

== ENCOUNTER 2019-03-11 16:00 | Outpatient (RCR) | payer OTHER, SELFPAY ==
[2019-03-03 00:14] VITALS: BP 152/99; PULSE 74; RESP 18; TEMP 36.6
[2019-03-04 13:47] VITALS: BP 166/105; PULSE 79; RESP 18; TEMP 37; BMI 59.8
--- NOTE | 2019-03-04 17:13 | PN.PCM_ITS ---
(1) Open wound anterior abdominal wall Status: Chronic Current Visit: Yes Code(s): S31.109A - Unspecified open wound of abdominal wall, unspecified quadrant without penetration into peritoneal cavity, initial encounter (2) Panniculitis Status: Chronic Current Visit: Yes Code(s): M79.3 - Panniculitis, unspecified (3) Smoker Status: Chronic Current Visit: Yes Code(s): F17.200 - Nicotine dependence, unspecified, uncomplicated Type of Wound Date of Service: 03/04/19 Chief Complaint: Open abscess wound right lower anterior abdominal wall. History of Wound: Patient presented to the ED on 01/25/19 with an abdominal abscess and panniculitis. His abscess was drained initially in the ED and he was started on Vanc and Zosyn. Further surgery with a panniculectomy was suggested. Patient was not interested in further surgery at this time because he wants to get back to work as soon as possible. Will plan on surgery later. He is aware that further infections may develop. He was sent home on Bactrim antibiotics and has been tolerating Dakin's dressing changes. His wound culture showed Coag negative Staph. His mother states she is having a difficult time packing the wound due to the opening decreasing in size. The wound care should be easier as Dr. Crews debrided the wound with a scalpel and opened up the undermined area inferiorly on 02/10/2019. Today he denies fever. His appetite is ok. Progress of Wound: Wound is much improved. Almost healed. - Physical Exam Vital Signs Temp Pulse Resp BP 98.6 F 79 18 166/105 H 03/04/19 13:47 03/04/19 13:47 03/04/19 13:47 03/04/19 13:47 General: Alert, Oriented x3, Cooperative HEENT: Atraumatic Oral: Moist Mucosa Lungs: Normal air movement Cardiovascular: Regular rate Abdomen: Obese Extremities: Capillary Refill Less than 3 Seconds, Peripheral Pulses Normal Skin: Ulcer/ Wound - Abdominal wound under pannus Wound Measurements and Assessment WC - Nurse 1 - General Ulcer Measurement Start: 03/04/19 13:47 Freq: Status: Active Protocol: Activity Type Activity Date Activity User E-Sign Co-Sign Detail Recorded Client Recorded Date Recorded By Document 03/04/19 13:47 DV [id number] 03/04/19 13:51 DV 03/04/19 13:47 Wound Center Nurse 1 [Ulcer Assessment] #1 Mid Panis -Combined with other wound No -Current Size (cm) - Length 0.5 -Current Size (cm) - Width 0.2 -Current Size (cm) - Depth 0.2 -Total Square Cm 0.10 -Photo Taken No -Epithelialization Small 1-33% -Tunneling No -Undermining/Tunneling No -Circular Undermining No -Classification - Thickness Full Thickness without Exposed Support Structure -Exudate Amt Small -Exudate Type Serosanguineous -Wound Margin Flat & Intact -Granulation Amt Small (1-33%) -Granulation Quality Red -Slough/Fibrin Yes -Necrosis Amt Medium (34-66%) -Necrotic Tissue Type Adherent Slough -Structure Exposed None/Limited to Skin Breakdown -Texture (Jovanna-wound Skin Appearance) Assessed, Scarring -Moisture (Jovanna-wound Skin Appearance Assessed, ) Maceration, Weeping -Color (Jovanna-wound Skin Appearance) Assessed -Temperature (Jovanna-wound Skin No Abnormality Appearance) (Pt Warm) -Tenderness on Palpation (Jovanna-wound No Skin Appearance) -Foul Odor after Cleansing No -Anesthetic Used 5% Lidocaine Gel WC - Nurse 2 - General Ulcer CM Notes Start: 03/04/19 13:47 Freq: Status: Active Protocol: Activity Type Activity Date Activity User E-Sign Co-Sign Detail Recorded Client Recorded Date Recorded By Document 03/04/19 14:40 [email or web address] [id number] 03/04/19 14:42 03/04/19 14:40 Wound Center Nurse 2 [Procedure/Treatment] -Time 14:41 -Correct Patient Yes -Correct Side, Site, Position Yes -Correct Procedure Yes -Procedure Performed Yes -Type of Procedure Debridement -Clinical Debridement Subcutaneous -Post Debridement Size (cm) - Length 0.3 -Post Debridement Size (cm) - Width 0.9 -Post Debridement Size (cm) - Depth 0.5 -Total Square Cm 0.27 -Wound/Ulcer Outcome Not Healed -Ulcer Cleansing Rinsed/ Irrigated with Saline -Foul Odor after Cleansing No -Bioengineered Tissue No -Bleeding Controlled with Pressure -Offloading No -Treatment Response Procedure Tolerated Well [See Physician Procedure note for Specifics] Pain Scale: 0-10 Numeric [Pain] -Is Patient Pain Free? Yes Musculoskeletal: No Tenderness to Palpation of Joints or Extremities Neurological: Neuro grossly intact Psych/Mental Status: Normal Affect, Appropriate Debridement Note Post-Debridement Measurements/Treatment WC - Nurse 2 - General Ulcer CM Notes Start: 03/04/19 13:47 Freq: Status: Active Protocol: Activity Type Activity Date Activity User E-Sign Co-Sign Detail Recorded Client Recorded Date Recorded By Document 03/04/19 14:40 [id number] 03/04/19 14:42 [email or web address] 03/04/19 14:40 Wound Center Nurse 2 #1 Mid Panis -Time 14:41 -Correct Patient Yes -Correct Side, Site, Position Yes -Correct Procedure Yes -Procedure Performed Yes -Type of Procedure Debridement -Clinical Debridement Subcutaneous -Post Debridement Size (cm) - Length 0.3 -Post Debridement Size (cm) - Width 0.9 -Post Debridement Size (cm) - Depth 0.5 -Total Square Cm 0.27 -Wound/Ulcer Outcome Not Healed -Ulcer Cleansing Rinsed/ Irrigated with Saline -Foul Odor after Cleansing No -Bioengineered Tissue No -Bleeding Controlled with Pressure -Offloading No -Treatment Response Procedure Tolerated Well Pain Scale: 0-10 Numeric Is Patient Pain Free? Yes Wound debrided: lower abdominal wound Type of Debridement: Excisional debridement Anesthesia Used: 4% Lidocaine Solution Depth: Down to and including healthy tissue, in the subcutaneous layer Percentage of wound debrided: 100 Instrument Used: 3mm curette Tissue Removed: Subcutaneous tissue and slough Severity: Limited To Skin Breakdown Amount of bleeding with debridement: Mild Bleeding Controlled with: Pressure Patient tolerated procedure well Assessment/Plan Active Problems Smoker (Chronic) Open wound anterior abdominal wall (Chronic) Panniculitis (Chronic) Assessment: 1. Open abscess wound right lower anterior abdominal wall. 2. Abdominal wall abscess. 3. Abdominal panniculus with panniculitis. 4. Abdominal wall skin crease intertrigo. 4. Morbid obesity. 5. Diabetes M ellitus. 6. Smoker. Plan: Stop Dakin's dressing changes. Will start collagen hydrogel with adaptic dressing daily. He has finished the Bactrim. His wound culture showed Coag negative Staph. His HgA1C was 8.1 while hospitalized, and he is on Victoza. Encourage nutritional supplementation with protein to help the healing process. Discussed with the patient that abdominal panniculectomy can be done to help minimize further infections in the future. Due to the large size of the pannus, the amount of tissue removed at one time is limited to the amount of blood loss and the stability of the patient intra-operatively. He is aware that multiple procedures may be necessary. He wants to wait on further surgery at this time because of his work. Followup 1 week due to me be out of town. Code Visit 111xxx-113xx: [id number] Eusebia subq tissue 20 sq cm/<
[2019-03-11 16:39] VITALS: BP 151/97; PULSE 84; RESP 22; TEMP 37; BMI 59.8
--- NOTE | 2019-03-11 17:29 | PN.PCM_ITS ---
(1) Open wound anterior abdominal wall Status: Chronic Current Visit: Yes Code(s): S31.109A - Unspecified open wound of abdominal wall, unspecified quadrant without penetration into peritoneal cavity, initial encounter (2) Panniculitis Status: Chronic Current Visit: Yes Code(s): M79.3 - Panniculitis, unspecified (3) Smoker Status: Chronic Current Visit: Yes Code(s): F17.200 - Nicotine dependence, unspecified, uncomplicated Type of Wound Date of Service: 03/11/19 Chief Complaint: Open abscess wound right lower anterior abdominal wall. History of Wound: Patient presented to the ED on 01/25/19 with an abdominal abscess and panniculitis. His abscess was drained initially in the ED and he was started on Vanc and Zosyn. Further surgery with a panniculectomy was suggested. Patient was not interested in further surgery at this time because he wants to get back to work as soon as possible. Will plan on surgery later. He is aware that further infections may develop. He was sent home on Bactrim antibiotics and has been tolerating Dakin's dressing changes. His wound culture showed Coag negative Staph. His mother states she is having a difficult time packing the wound due to the opening decreasing in size. The wound care should be easier as Dr. Crews debrided the wound with a scalpel and opened up the undermined area inferiorly on 02/10/2019. Today he denies fever. His appetite is ok. Progress of Wound: Healed - Physical Exam Vital Signs Temp Pulse Resp BP 98.6 F 84 22 H 151/97 H 03/11/19 16:39 03/11/19 16:39 03/11/19 16:39 03/11/19 16:39 General: Alert, Oriented x3, Cooperative HEENT: Atraumatic Oral: Moist Mucosa Lungs: Normal air movement Cardiovascular: Regular rate Abdomen: Obese Skin: Ulcer/ Wound - lower right abdominal opening is healed Wound Measurements and Assessment WC - Nurse 1 - General Ulcer Measurement Start: 03/04/19 13:47 Freq: Status: Active Protocol: Activity Type Activity Date Activity User E-Sign Co-Sign Detail Recorded Client Recorded Date Recorded By Document 03/11/19 16:39 DL [id number] 03/11/19 16:49 DL 03/11/19 16:39 Wound Center Nurse 1 [Ulcer Assessment] #1 Mid Panis -Current Size (cm) - Length 0 -Current Size (cm) - Width 0 -Current Size (cm) - Depth 0 -Total Square Cm 0 -Photo Taken Yes -Exudate Amt None Present -Wound Margin Flat & Intact -Granulation Amt Large (67-100%) -Granulation Quality [place] -Necrosis Amt None Present (0 %) -Structure Exposed N/A -Texture (Jovanna-wound Skin Appearance) Scarring -Moisture (Jovanna-wound Skin Appearance No Abnormality ) -Color (Jovanna-wound Skin Appearance) No Abnormality -Temperature (Jovanna-wound Skin No Abnormality Appearance) (Pt Warm) -Tenderness on Palpation (Jovanna-wound No Skin Appearance) -Ulcer Cleansing Rinsed/ Irrigated with Saline -Foul Odor after Cleansing No WC - Nurse 2 - General Ulcer CM Notes Start: 03/04/19 13:47 Freq: Status: Active Protocol: Activity Type Activity Date Activity User E-Sign Co-Sign Detail Recorded Client Recorded Date Recorded By Document 03/11/19 17:16 [id number] 03/11/19 17:17 03/11/19 17:16 Wound Center Nurse 2 [Procedure/Treatment] -Time 17:17 -Correct Patient Yes -Correct Side, Site, Position Yes -Correct Procedure Yes -Procedure Performed No -Post Debridement Size (cm) - Length 0 -Post Debridement Size (cm) - Width 0 -Post Debridement Size (cm) - Depth 0 -Total Square Cm 0 -Wound/Ulcer Outcome Healed- Epithelialized [See Physician Procedure note for Specifics] Musculoskeletal: No Tenderness to Palpation of Joints or Extremities Neurological: Neuro grossly intact Psych/Mental Status: Normal Affect, Appropriate Debridement Note Post-Debridement Measurements/Treatment - Nurse 2 - General Ulcer CM Notes Start: 03/04/19 13:47 Freq: Status: Active Protocol: Activity Type Activity Date Activity User E-Sign Co-Sign Detail Recorded Client Recorded Date Recorded By Document 03/04/19 14:40 [id number] 03/04/19 14:42 Document 03/11/19 17:16 [id number] 03/11/19 17:17 03/04/19 03/11/19 14:40 17:16 Wound Center Nurse 2 #1 Mid Panis -Time 14:41 17:17 -Correct Patient Yes Yes -Correct Side, Site, Position Yes Yes -Correct Procedure Yes Yes -Procedure Performed Yes No -Type of Procedure Debridement -Clinical Debridement Subcutaneous -Post Debridement Size (cm) - Length 0.3 0 -Post Debridement Size (cm) - Width 0.9 0 -Post Debridement Size (cm) - Depth 0.5 0 -Total Square Cm 0.27 0 -Wound/Ulcer Outcome Not Healed Healed- Epithelialized -Ulcer Cleansing Rinsed/ Irrigated with Saline -Foul Odor after Cleansing No -Bioengineered Tissue No -Bleeding Controlled with Pressure -Offloading No -Treatment Response Procedure Tolerated Well Pain Scale: 0-10 Numeric Is Patient Pain Free? Yes No debridement was completed today Assessment/Plan Active Problems Smoker (Chronic) Open wound anterior abdominal wall (Chronic) Panniculitis (Chronic) Assessment: 1. Open abscess wound right lower anterior abdominal wall. 2. Abdominal wall abscess. 3. Abdominal panniculus with panniculitis. 4. Abdominal wall skin crease intertrigo. 4. Morbid obesity. 5. Diabetes Mellitus. 6. Smoker. Plan: He is healed today. He is to continue to keep the skin fold area where the opened area was located clean and dry. Encouraged him to wipe it dry several times per day and with the heat he may need to keep a piece of dry gauze in the area. He is discharged from the wound healing center. He is to follow up as needed. Code Visit Office Visits / Consults: [id number] OV L3 Est
== END 2019-04-02 23:59 ==
LOC: WC 16:00
PROVIDERS: Family Provider Internal Medicine; PCP Internal Medicine; Visit Provider Nurse Practitioner Family
DX: L02.211 Cutaneous abscess of abdominal wall (principal); F17.200 Nicotine dependence, unspecified, uncomplicated; M79.3 Panniculitis, unspecified; L98.491 Non-pressure chronic ulcer of skin of other sites limited to breakdown of skin; E66.01 Morbid (severe) obesity due to excess calories; Z68.43 Body mass index [BMI] 50.0-59.9, adult; Z71.3 Dietary counseling and surveillance; L30.4 Erythema intertrigo; E11.9 Type 2 diabetes mellitus without complications
CPT/HCPCS: 11042; 99212; G0463

== ENCOUNTER 2019-04-02 08:53 | Day surgery (SDC) | payer OTHER, SELFPAY ==
[2019-03-24 15:04] VITALS: BMI 59.8
[2019-04-02] VITALS (8 sets, daily range): BP systolic 130–173; BP diastolic 62–107; PULSE 75–87; RESP 16; TEMP 36.4–36.6; O2SAT 97–99; BMI 61.1
--- NOTE | 2019-04-02 | IMM_PTH ---
PATIENT: CHIDI ALVAREZ LOC: EN U#:[id number] AGE/SX: 33/M ROOM: RE04/02/[address]: Dr. Jordon Alejandre MD : 1985 BED: DIS: 04/02/2019 SPEC #: [id number] RECD: 04/02/19 15:52 STATUS: CARLO REJose #: [id number] ABIMAEL: 04/02/19 00:[address]: Jordon Alejandre DEPT: IMMUNOHISTOCHEMISTRY RECD BY: Josephine Richardson ENTERED: 04/02/19 15:53 SP TYPE: IMMUNO OTHR DR: Dr. Pablo Lloyd MD Tissues: Gastric mucous membrane Procedures: H Pylori (initial) PHYSICIAN & INSTITUTION [place] [id number] SPECIMEN INFORMATION: Tissue Source: Antral biopsy Clinical Info: Abdominal pressure, bloating, rectal bleeding, tarry stools Specimen Number: [id number] CPT code: 58653 METHODOLOGY: Deparaffinized sections of prefer/formalin-fixed tissue or PAP/DQ stained slides are incubated with monoclonal/polyclonal antibodies/oligonucleotide probes. Localization is made via biotin free immunoperoxidase method. Appropriate controls are performed and reacted as expected. Results on target cell population are indicated in the following table: RESULTS: ANTIBODY / CLONE RESULT H Pylori (polyclonal) negative These tests were developed and their performance characteristics determined by [facility]. They may not have been cleared or approved by the [place]. Food and Drug Administration. The FDA has determined that such clearance or approval is not necessary. INTERPRETATION: Antral biopsy: Negative for Helicobacter pylori organisms. CATINA:vi 04/03/19
[2019-04-02 09:25] LABS: Bedside Glucose 202 mg/dL (70-110)
--- NOTE | 2019-04-02 09:39 | PCM.HP.BLA ---
History and Physical Date of Admission: 04/02/19 [facility] [address] [place] [address] OFFICE VISIT Date of Service: 03/24/19 MR#: [id number] Acct: [id number] Name: CHIDI ALVAREZ Rep #: [id number] : 1985 Provider: Jordon Alejandre MD Age/Sex: 33/M Location: [facility] Status: Signed Intake Vital Signs 03/24/19 Body Mass Index (BMI) 59.8 03/24/19 Height 6 ft 3 in 03/24/19 Weight: 479 lb 03/24/19 Body Mass Index (BMI) 59.8 03/24/19 Blood Pressure 162/95 H 03/24/19 Blood Pressure Location Rt brachial 03/24/19 Blood Pressure Position Sitting 03/24/19 Respiratory Rate 18 Intake Visit Reasons: Upper & Lower Scope Chief Complaint: ABCESS RT ABD Palliative Care Coordinator Required: No Is patient in pain?: No Allergies No Known Allergies Allergy (Verified 03/28/19 13:59) Medications Albuterol Inhaler [Ventolin Hfa] 2 puff INHALATION Q4H PRN PRN 01/25/19 [History Confirmed 03/28/19] Chlorthalidone 25 mg PO DAILY 01/25/19 [History Confirmed 03/28/19] Citalopram [Celexa] 40 mg PO DAILY 01/25/19 [History Confirmed 03/28/19] Doxazosin Mesylate [Cardura] 4 mg PO QHS 01/25/19 [History Confirmed 03/28/19] Esomeprazole Magnesium 40 mg PO BIDCM 01/25/19 [History Confirmed 03/28/19] Fluticasone 0.05% [Flonase Nasal [place]] 2 spry PO PRN PRN 01/25/19 [History Confirmed 03/28/19] Gabapentin [Neurontin] 300 mg PO DAILY 01/25/19 [History Confirmed 03/28/19] Glipizide [Glipizide ER] 2.5 mg PO DAILY 01/25/19 [History Confirmed 03/28/19] Lisinopril 40 mg PO DAILY 01/25/19 [History Confirmed 03/28/19] Metformin HCl 500 mg PO BID 01/25/19 [History Confirmed 03/28/19] Pravastatin [Pravachol] 40 mg PO DAILY 01/25/19 [History Confirmed 03/28/19] Verapamil HCl [Verapamil ER] 480 mg PO QHS 01/25/19 [History Confirmed 03/28/19] Acetaminophen [Tylenol Tablet] 650 mg PO Q6H PRN PRN tab 01/28/19 [Rx Confirmed 03/28/19] Ibuprofen 600 mg PO 4X/DAY PRN #1 tab 01/28/19 [Rx Confirmed 03/28/19] PFSH Medical History Smoker (Chronic) Open wound anterior abdominal wall (Chronic) Intertrigo (Chronic) Panniculitis (Chronic) Abdominal panniculus, symptomatic (Chronic) Abdominal wall abscess (Chronic) Severe sepsis (Acute) Cellulitis and abscess of other specified site (Acute) Hyperglycemia due to type 2 diabetes mellitus (Acute) Morbid obesity (Chronic) Hyperlipidemia (Chronic) Gastroesophageal reflux disease (Chronic) Type 2 diabetes mellitus (Chronic) Benign essential hypertension (Chronic) Surgical History S/P tonsillectomy (Acute) Family History Father Asthma Colon cancer Heart disease CAD (coronary artery disease) Hypertension Diabetes Grandfather Asthma Heart disease Diabetes Colon cancer Mother Thyroid disorder Diabetes Grandmother Asthma Colon cancer Diabetes Social History (Updated 03/31/19 @ 12:34 by Jordon Alejandre MD) Smoking Status: Heavy Smoker (>10/day) alcohol intake: never HPI HPI HPI: CHIDI ALVAREZ, is a 33 M who presents to the office today for HPI HPI Surgical H&P: Yes HPI: CHIDI ALVAREZ, is a 33 M who presents to the office today for evaluation for endoscopy. Patient has had significant abdominal pressure and bloating. He is also noticed an excessive amount of belching secondary to his blood pressure medication. He has had bright red rectal bleeding followed by constipation and at times black tarry stools. Is belching episodes have been off and on over the last year and over the last month have been increasing in nature. He has not been complaining of any painful rectal bleeding. Exam Const General: no acute distress, well developed, well hydrated Orientation: oriented to person, oriented to place, oriented to time [facility] Head: normocephalic, atraumatic Ears: external ears normal Mouth: moist mucous membranes Eyes Sclera: sclerae normal Pupils: normal by confrontation Neck Neck: no lymphadenopathy noted Neck mass: No Thyroid: thyroid normal, symmetrical Chest Chest palpation & inspection: normal inspection of the chest Resp Effort & Inspection: normal respiratory effort Auscultation: clear to auscultation bilaterally Percussion: percussion normal Cardio Rate: regular rate Rhythm: regular rhythm GI Inspection: obesity (Morbidly BMI equals 59) Palpation: soft, no hepatosplenomegaly, no masses, nontender Rectal Exam: other Other: Rectal exam deferred. Extrem General: normal to inspection, no clubbing, cyanosis or edema Assessment & Plan Problems 1. Black tarry stools K92.1 2. Belching R14.2 Plan I have discussed the above with the patient. I have offered the patient colonoscopy as well as an EGD for evaluation. I have explained the risks/benefits of the procedure and described the procedure. I have discussed the risks with the patient, including but not limited to: infection, bleeding, perforation of the GI tract requiring emergency surgery, inability to complete the procedure, injury to any internal organs, complications of anesthesia, etc. - the patient understands and agrees to proceed. I have answered all the patient's questions to the patient's satisfaction and the patient has no further questions. The patient has been given instructions for the colon cleansing preparation. He will need to have random colon biopsies. Coding Level of Care Code Off vis,new,level 3 Diagnoses Black tarry stools K92.1 Belching R14.2 03/31/19 1234 <Electronically signed by Jordon Alejandre MD> Date Jordon Alejandre MD Cosigner Signature: Date (if applicable) CC: KEN JOSEPH ~ I have re-examined the patient. There are no clinical changes since date of exam.
--- NOTE | 2019-04-02 10:00 | EGD_PTH ---
PATIENT: CHIDI ALVAREZ LOC: EN U#:[id number] AGE/SX: 33/M ROOM: RE04/02/[address]: Dr. Jordon Alejandre MD : 1985 BED: DIS: 04/02/2019 SPEC #: [id number] RECD: 04/02/19 11:22 STATUS: CARLO JERAMIE #: [id number] ABIMAEL: 04/02/19 10:[address]: Jordon Alejandre DEPT: SURGICAL PATHOLOGY RECD BY: Jean Marie Red ENTERED: 04/02/19 12:36 SP TYPE: EGD BIOPSY OT DR: Dr. Pablo Lloyd MD Tissues: A - Gastric mucous membrane B - Ascending colon Procedures: Surgery Specimen Level IV HEADER OPERATION: [place] DIAGNOSIS: Abdominal pressure, bloating, rectal bleeding, tarry stools TISSUE SUBMITTED: A. Antral biopsy for H. pylori and path, B. Ascending colon polyp snare MICROSCOPIC DIAGNOSIS A. Antral biopsy: Mild gastritis. See microscopic description and comment. B. Ascending colon polyp, biopsy: Fragments of tubulovillous adenoma. CATINA:vi 04/03/19 COMMENT A. The results of immunohistochemistry for Helicobacter pylori will be reported separately ([id number]). MICROSCOPIC DESCRIPTION Slides are reviewed. A. The specimen shows fragments of gastric mucosa with chronic inflammatory cell infiltrates in the lamina propria consisting of lymphocytes and plasma cells, consistent with mild chronic gastritis. GROSS DESCRIPTION A - Received in fixative is one container labeled with the patient's name and designated antral biopsy. The specimen consists of one irregular fragment of light draper soft tissue that measures 0.4 x 0.3 x 0.1 cm. The specimen is totally submitted in one cassette. B - Received in fixative is one container labeled with the patient's name and designated ascending colon polyp. The specimen consists of multiple irregular fragments of light draper soft tissue that in aggregate measure 3 x 0.5 x 0.2 cm. The specimen is totally submitted in one cassette. / CATINA:vi 04/02/19 TC:1 CPT: 48694 x2
--- NOTE | 2019-04-02 10:14 | OP.ENDO_ITS ---
04/02/2019 Pablo Lloyd [address] [place] [address] Re : Upper GI endoscopy procedure for Shravan Anthony Dear Dr. Lloyd This procedure was performed on Tuesday, April 02, 2019. My impressions and recommendations are as follows: Impressions : - Normal esophagus. - Gastritis. Biopsied. - Erythematous duodenopathy. No specimens collected. Recommendations : - Discharge patient to home. - Resume previous diet. - Continue present medications. - Await pathology results. - Repeat upper endoscopy PRN for surveillance. - Return to my office in 1 week. My findings are described in the full procedure note, which is enclosed. If I can be of further assistance, please feel free to contact me at Doctor phone number(s): , Fax: [phone], Work: . Sincerely, MD Jordon Sparrow MD 04/02/2019 10:13:48 AM This report has been signed electronically.
--- NOTE | 2019-04-02 10:17 | OP.ENDO_ITS ---
04/02/2019 Pablo Lloyd [address] [place] [address] Re : Colonoscopy procedure for Shravan Gabrielle Dear Dr. Lloyd This procedure was performed on Tuesday, April 02, 2019. My impressions and recommendations are as follows: Impressions : - Two 3 to 8 mm polyps at the splenic flexure and in the ascending colon, removed with a hot snare. Resected and retrieved. - Non-bleeding internal hemorrhoids. - The examination was otherwise normal. Recommendations : - Discharge patient to home. - Resume previous diet. - Continue present medications. - Await pathology results. - Repeat colonoscopy in 3 years for surveillance. - Return to my office in 1 week. My findings are described in the full procedure note, which is enclosed. If I can be of further assistance, please feel free to contact me at Doctor phone number(s): , Fax: [phone], Work: . Sincerely, MD Jordon Sparrow MD 04/02/2019 10:16:43 AM This report has been signed electronically.
== END 2019-04-02 11:02 | disposition home or self-care (01) ==
LOC: EN 08:55 → AC 08:56
PROVIDERS: Family Provider Internal Medicine; PCP Internal Medicine; Referring Provider Surgery; Visit Provider Surgery
PROC: 0DJD8ZZ Inspection of Lower Intestinal Tract, Via Natural or Artificial Opening Endoscopic (ICD-10-PCS; CPT 45378; principal; 2019-04-02 09:55)
DX: D12.3 Benign neoplasm of transverse colon (principal); D12.2 Benign neoplasm of ascending colon; K64.8 Other hemorrhoids; K29.70 Gastritis, unspecified, without bleeding; K31.89 Other diseases of stomach and duodenum; R14.0 Abdominal distension (gaseous); K92.1 Melena; K21.9 Gastro-esophageal reflux disease without esophagitis; I10 Essential (primary) hypertension; F17.210 Nicotine dependence, cigarettes, uncomplicated; E66.01 Morbid (severe) obesity due to excess calories; E78.5 Hyperlipidemia, unspecified; E11.9 Type 2 diabetes mellitus without complications; R14.2 Eructation; Z68.43 Body mass index [BMI] 50.0-59.9, adult
CPT/HCPCS: 43239; 45385; 82962; 88305; 88342; J7120; J2405

== ENCOUNTER 2022-09-25 09:31 | Inpatient (IN) | payer OTHER, SELFPAY ==
[2022-09-25] VITALS (25 sets, daily range): BP systolic 145–255; BP diastolic 87–149; PULSE 100–136; RESP 14–30; TEMP 35.2–36.8; O2SAT 94–100; BMI 61.0; BMI 53.4
--- NOTE | 2022-09-25 09:48 | CT_ITS ---
INDICATION: Hypertensive emergency, blurred vision, falling to EXAMINATION: CT BRAIN - CT Head or Brain W/O Contrast Injection TECHNIQUE: Multiple axial images were obtained of the head without intravenous contrast. A radiation dose optimization technique was used for this scan. IV Contrast dosage and agent: None. COMPARISON: FINDINGS: BRAIN PARENCHYMA: No intra- or extra-axial hemorrhage. No evidence of acute infarct. No intracranial mass or mass effect. There is preservation of the stauffer/white matter interface. Posterior fossa structures are unremarkable. CSF SPACES: Appropriate for age. No hydrocephalus. Basal cisterns are patent. CALVARIUM, SKULL BASE, PARANASAL SINUSES AND MASTOID AIR CELLS: Clear. There is a round low-attenuation focus within the left maxillary sinus consistent with a mucous retention cyst or polyp. ORBITS: Both globes, extraocular muscles, optic nerves and retrobulbar fat appear unremarkable. CT/Brain/Head without Contrast IMPRESSION: No acute intracranial process. Electronically Signed: Vandana Dangelo MD at 10:51 EST ,
--- NOTE | 2022-09-25 09:48 | EKG12_ITS ---
Test Reason : Blood Pressure : / mmHG Vent. Rate : 097 BPM Atrial Rate : 097 BPM P-R Int : 180 ms QRS Dur : 092 ms QT Int : 374 ms P-R-T Axes : 009 015 108 degrees QTc Int : 474 ms Normal sinus rhythm Cannot rule out Inferior infarct , age undetermined ST & T wave abnormality, consider lateral ischemia Poor R wave progression Abnormal ECG Confirmed by ROSALINDA PATRICIA, MICHI ([id number]), book editor WHIT SHOEMAKER ([id number]) on 09/27/2022 8:56:10 AM Referred By: SONNY Confirmed By:MICHI TELLEZ MD
--- NOTE | 2022-09-25 09:58 | NURSING ---
NO OLD EKGS
[2022-09-25 10:10] LABS: Absolute Lymphocyte Count 2.28 X10^3/uL (0.83-4.51); Basophil# 0.09 X10^3/uL; Basophil% 0.8 % (0-1); Eosinophil# 0.32 X10^3/uL; Eosinophils% 2.7 % (0-5); Hematocrit 52.6 % (40-54); Hemoglobin 17.6 g/dL (13.0-16.5); Lymphocyte # 2.28 X10^3/ul (0.83-4.51); Lymphocyte % 19.5 % (19-41); Mean Corp Hgb Conc 33.5 g/dL (32-36); Mean Corpuscular Hgb 27.5 pg (27.0-32.0); Mean Corpuscular Volume 82.2 fL (80-94); Mean Platelet Vol. 10.8 fl (6.2-12.0); Monocyte# 0.88 X10^3/uL; Monocyte% 7.5 % (0-10); NRBC Flagged by Analyzer 0 % (0-5); Neutrophil # 8.02 X10^3/uL (2.7-7.7); Neutrophil % 68.8 % (47-70); Platelet Count 281 K/mm3 (150-450); RBC Distribution Width CV 12.6 % (11.6-14.6); RBC Distribution Width SD 37.7 fl (35.1-43.9); White Blood Count 11.7 K/mm3 (4.4-11.0)
[2022-09-25 10:19] LABS: Prothrombin Time (Protime)PT. 12.6 SECONDS (11.7-14.9)
[2022-09-25] MEDS: Nicardipine HCl-0.9% Sod Chlor 20 MG/200 ML IV.SOLN 50 MG CONT INF (10:25)
[2022-09-25 10:35] LABS: ALB/GLOB Ratio 0.9 RATIO (0.9-2.4); AST(SGOT) 8 U/L (15-37); Alanine Aminotransfer ALT/SGPT 16 U/L (16-61); Albumin, Serum 3.4 g/dL (3.2-5.0); Alkaline Phosphatase 147 U/L (45-117); Anion Gap 10 (5-15); BUN 11 mg/dL (7-18); BUN/Creat Ratio 11.4 RATIO (10-20); Calcium,Total 9.3 mg/dL (8.5-10.1); Chloride 100 mmol/L (98-107); Creatinine, Serum 0.97 mg/dL (0.70-1.30); EST Glomerular Filtration Rate 92 mL/min (>60); Est Glom Filt Rate - Afr Amer 111 mL/min (>60); Estimated Creatinine Clearance 120.05 ml/min; Globulin 3.9 g/dL (2.2-4.2); Glucose 316 mg/dL (74-106); Potassium 3.5 mmol/L (3.5-5.1); Protein, Total 7.3 g/dL (6.4-8.2); Sodium Level 133 mmol/L (136-145); Troponin-I HS 70 pg/mL (3.0-78.0)
--- NOTE | 2022-09-25 11:10 | EDS_ITS ---
HPI History of Present Illness Chief Complaint: Hypertension Detail of Chief Complaint: High blood pressure, difficulty sleeping, visual changes, problems with bal Informant: patient and family Onset/Context/Timing Onset: Yesterday Context: Sudden Onset Timing: Continuous and Waxes and wanes Quality: Documented HPI narrative Location: Cardiovascular and neurologic Current Severity: Moderate Maximum Severity: Severe Worsened by: Noncompliance with antihypertensive meds Relieved by: Took dose of clonidine 2 days ago with no improvement Associated Symptoms Associated Symptoms: Per HPI narrative Narrative Narrative: Patient is a 37-year-old male with history of hypertension, morbid obesity, GERD, type 2 diabetes and hypertension who was noncompliant with his meds. He has not taken his medication for the past 2 weeks. He states he is on Cardizem, lisinopril and clonidine. His dose of lisinopril is 40 mg a day. Dose of clonidine is 0.2 mg 3 times daily. Does not recall dose of Cardizem. Per old records he apparently is on 480 mg. Patient reports headache. Headache is global. He also complains of his vision being smeared . When asked to define my interpretation is blurred. He also has trouble with balance and states he seems to go to the right preferentially. He denies trouble with speech or swallowing. He denies paresthesia, anesthesia or motor weakness upper lower extremity. He has not had trouble swallowing. He denies chest discomfort or back pain. He denies abdominal pain, nausea, vomiting or diarrhea. He denies dysuria, frequency, urgency or hematuria. He does endorse slight increased thirst. Denies polyuria. Prior similar symptoms: No Recent Illness/Hospitalization: No [facility] Medical History (Updated 09/25/22 @ 11:[address] Puneet Witt MD) Abdominal panniculus, symptomatic Abdominal wall abscess Benign essential hypertension Cellulitis and abscess of other specified site Gastroesophageal reflux disease Hyperglycemia due to type 2 diabetes mellitus Hyperlipidemia Intertrigo Morbid obesity Open wound anterior abdominal wall Panniculitis Severe sepsis Smoker Type 2 diabetes mellitus Home Medications albuterol sulfate 90 mcg/actuation aerosol inhaler 2 puff inhalation Q4H PRN PRN Sob &/Or Wheezing 01/25/19 [History Last Taken 01/25/19 08:00] chlorthalidone 25 mg tablet 25 mg PO DAILY BLOOD PRESSURE 01/25/19 [History Last Taken 01/25/19 12:00] citalopram 40 mg tablet 40 mg PO DAILY DEPRESSION 01/25/19 [History Last Taken 01/25/19 12:00] doxazosin 4 mg tablet 4 mg PO QHS HEART 01/25/19 [History Last Taken 01/24/19 22:00] esomeprazole magnesium 40 mg capsule,delayed release 40 mg PO BIDCM HEARTBURN 01/25/19 [History Last Taken 01/25/19 12:00] fluticasone propionate 50 mcg/actuation nasal spray,suspension 2 spry PO PRN PRN Allergies 01/25/19 [History Last Taken 01/24/19 22:00] gabapentin 300 mg capsule 300 mg PO DAILY pain 01/25/19 [History Last Taken 01/25/19 12:00] glipizide 2.5 mg tablet, extended release 24 hr 2.5 mg PO DAILY DIABETES 01/25/19 [History Last Taken 01/25/19 12:00] lisinopril 40 mg tablet 40 mg PO DAILY BP 01/25/19 [History Last Taken 01/25/19 12:00] metformin 500 mg tablet 500 mg PO BID DIABETES 01/25/19 [History Last Taken 01/25/19 12:00] pravastatin 40 mg tablet 40 mg PO DAILY CHOLESTEROL 01/25/19 [History Last Taken 01/25/19 12:00] verapamil 240 mg tablet,extended release 480 mg PO QHS HEART 01/25/19 [History Last Taken 01/24/19 22:00] acetaminophen 325 mg tablet 650 mg PO Q6H PRN PRN Mild Pain (1-3)/Temp > 100.7 F 01/28/19 [Rx Last Taken Unknown] ibuprofen 600 mg tablet 600 mg PO 4X/DAY PRN Pain #1 tab 01/28/19 [Rx Last Taken Unknown] insulin glargine 100 unit/mL subcutaneous cartridge 25 unit subcut QHS 09/25/22 [History Last Taken Unknown] Allergy/AdvReac Type Severity Reaction Status Date / Time No Known Allergies Allergy Verified 09/25/22 09:32 Family History Father Asthma Colon cancer Heart disease CAD (coronary artery disease) Hypertension Diabetes Grandfather Asthma Heart disease Diabetes Colon cancer Mother Thyroid disorder Diabetes Grandmother Asthma Colon cancer Diabetes Surgical History S/P tonsillectomy Social History Smoking Status: Heavy Smoker (>10/day) alcohol intake: never ROS ROS ED Constitutional Constitutional ED: Reports sweats; Denies chills, fever(s), subjective or weight loss Eyes Eyes: Reports blurry vision bilateral; Denies change in vision or diplopia ENT ENT ED: Denies ear pain, rhinorrhea or sore throat Cardiovascular Cardiovascular: Denies chest pain, orthopnea, palpitations, paroxysmal nocturnal dyspnea or racing heartbeat Respiratory/Chest Respiratory/Chest: Denies cough, dyspnea, dyspnea on exertion, orthopnea or paroxysmal nocturnal dyspnea Gastrointestinal Gastrointestinal: Denies abdominal pain, constipation, diarrhea, melena, nausea or vomiting Genitourinary Genitourinary ED: Denies dysuria, hematuria or urinary frequency Musculoskeletal Musculoskeletal: Denies arthralgias, back pain, myalgias or neck pain Integumentary Denies abscess, Abrasions or rash Neurologic Neurologic: Reports headache(s) and other Details: Documented HPI narrative ; Denies paresthesias or weakness Psychiatric Psychiatric: Denies anxiety or depression Endocrine Endocrinology: Reports polydipsia; Denies cold intolerance, heat intolerance or polyuria Hematologic/Lymphatic Hematologic/Lymphatic: Reports none EXAM Physical Exam Const Vital Signs: 09/25/22 09:32 09/25/22 10:15 09/25/22 10:17 Temperature 95.4 F L Temperature Source Temporal Pulse Rate 105 H 101 H Respiratory Rate 17 16 Respiratory Effort Normal Non-Labored Respiratory Pattern Normal Blood Pressure 255/149 H 209/133 H Blood Pressure Mean 184 158 Blood Pressure Source Blood Pressure Position Blood Pressure Location Pulse Ox 96 97 Oxygen Delivery Method Room Air Room Air 09/25/22 10:25 09/25/22 11:07 09/25/22 11:09 Temperature Temperature Source Pulse Rate 101 H 100 Respiratory Rate 14 16 Respiratory Effort Respiratory Pattern Blood Pressure 209/133 H 226/124 H 196/120 H Blood Pressure Mean 158 158 145 Blood Pressure Source Monitor Monitor Blood Pressure Position Semi-Fowlers Blood Pressure Location Right Arm Pulse Ox 97 97 Oxygen Delivery Method Positive well nourished, well developed and obese General Appearance ED: well developed, diaphoretic, NAD and pallor; Negative for cyanotic Nutritional Appearance: obese HEENT Reports moist mucous membranes HEENT Narrative: Head is atraumatic normocephalic. Ears are normal. TMs are normal. Posterior pharynx without erythema or exudate. There is no deviation with protrusion. Funduscopic exam reveals normal cup-to-disc ratio. No obvious papilledema. Patient does have evidence of AV nicking and copper wiring. There is no hemorrhages noted. Eyes PERRL and EOMs intact bilaterally Eyes Narrative: Documented in the HEENT portion of the physical exam General Eye ED: Negative for pale conjunctiva or scleral icterus Neck no lymphadenopathy, supple and no JVD Neck Narrative: There is no carotid bruit noted on the right or left Chest Wall inspection of chest normal and palpation of chest normal Resp normal respiratory effort and clear to auscultation bilaterally Cardio regular rhythm, S1 normal heart sound, S2 normal heart sound and no murmurs Rate: tachycardic GI normal to inspection, nondistended, normoactive bowel sounds, non-tender and non-distended; Negative for hepatosplenomegaly or no masses Back/Spine no CVA tenderness Cervical Spine: Negative for cervical spine tenderness Thoracic Spine / Upper Back: Negative for thoracic spinal tenderness Lumbar Spine / Lower Back: Negative for lumbar spinal tenderness Extremity Extremity Narrative: There is no ischemic changes. There is no discoloration, leg vein distention, palp cords distribution deep venous system. General Extremety ED: Yes edema General Extremity: edema Neuro oriented x3, CN's II-XII intact bilaterally and no sensory deficits noted Neuro Narrative: Patient had mild dysmetria on the right. [id number] was slightly abnormal on the right as well. Gait was not assessed because of his markedly elevated blood pressure and concern he may fall. Sensorium / Orientation: alert Motor Exam: strength 5/5 throughout Psych mental status grossly normal Skin no rashes or lesions noted, no wounds and skin turgor normal Skin Narrative: Patient is diaphoretic. General Skin Exam: pallor; Negative for jaundice MDM MDM MDM Narrative Medical decision making narrative: Patient reports was concerning for hypertensive emergency and possible stroke. CT of the head was obtained. EKG was obtained to assess for LVH, ischemia. Blood work was obtained to assess for endorgan dysfunction. Patient was started on a Cardene drip since his initial blood pressure was 255/149 with a goal of 205 systolic and 110 diastolic. Lab Data Attestation: I reviewed the patient's lab results. Lab results narrative: White count is slightly elevated with no shift. Hemoglobin is 17.6. Coag's are normal. Comprehensive metabolic panel is marked for glucose of 316 with a normal CO2 and anion gap. Labs: Laboratory Results - last 24 hr 09/25/22 09/25/22 09/25/22 10:00 10:00 10:00 WBC 11.7 H RBC 6.40 H Hgb 17.6 H Hct 52.6 MCV 82.2 MCH 27.5 MCHC 33.5 RDW Std Deviation 37.7 RDW Coeff of Debi 12.6 Plt Count 281 MPV 10.8 Immature Gran % (Auto) 0.700 Neut % (Auto) 68.8 Lymph % (Auto) 19.5 [place] % (Auto) 7.5 Eos % (Auto) 2.7 Baso % (Auto) 0.8 Absolute Neuts (auto) 8.0 H Absolute Lymphs (auto) 2.28 Nucleated RBC % 0 PT 12.6 INR 1.0 APTT 27.0 Sodium 133 L Potassium 3.5 Chloride 100 Carbon Dioxide 23.0 Anion Gap 10 BUN 11 Creatinine 0.97 Estim Creat Clear Calc 120.05 Est GFR (MDRD) Af Amer 111 Est GFR (MDRD) Non-Af 92 BUN/Creatinine Ratio 11.4 Glucose 316 H Calcium 9.3 Total Bilirubin 0.30 AST 8 L ALT 16 Alkaline Phosphatase 147 H Troponin I High Sens 70 Total Protein 7.3 Albumin 3.4 Globulin 3.9 Albumin/Globulin Ratio 0.9 Radiography Diagnostic Testing: Clinical Impression(s) from Imaging Studies Brain CT 09/25/22 09:48 IMPRESSION: No acute intracranial process. Electronically Signed: Vandana Dangelo MD at 10:51 EST , Reviewed the CAT scan. Patient has a retention cyst left maxillary sinus. There is no obvious intracranial pathology noted. Awaiting for formal read by radial. Rhythm Strip Rhythm Strip: Sinus Tach Rate: 101 Ectopy: None EKG Initial EKG: Interpretation: Sinus Rhythm (Rate is 97. ID interval 280 ms. QS duration 92 ms. QT durations are 74 ms. Fontana is normal. There is some nonseptic ST-T wave changes noted. This is probably due to his hypertension. Will obtain troponin to rule out ischemia as cause.) Critical Care Time Critical Care Time: Yes Critical care time (excluding procedures): 30-74 minutes (37), Including time spent: (History, physical, documentation, independent review interpretation of laboratory results and review of CAT scan), Discussing w/Patient &/or Family/Temper Mill Operator, Discussing w/Consultants, Arranging Admission or Transfer and Performing Direct Patient Care at Bedside Discharge Plan Triage Chief Complaint: Hypertension ED Provider: Puneet Witt Dx/Rx/DC Orders Clinical Impression: Hypertensive emergency, Smoker, Hyperlipidemia, Morbid obesity, Hyperglycemia due to type 2 diabetes mellitus, Cerebellar dysmetria, Proteinuria Prescriptions: No Action metformin 500 MG tablet 500 mg PO BID citalopram 40 MG tablet 40 mg PO DAILY Label Comments: TK 1 T PO QD chlorthalidone 25 MG tablet 25 mg PO DAILY glipizide 2.5 MG tablet extended release 24hr 2.5 mg PO DAILY esomeprazole magnesium 40 MG capsule,delayed release(DR/EC) 40 mg PO BIDCM Label Comments: TK 1 C PO QD doxazosin 4 MG tablet 4 mg PO QHS Label Comments: TK 1 T PO D HS lisinopril 40 MG tablet 40 mg PO DAILY fluticasone propionate 1 SPRAY spray,suspension 2 spry PO PRN PRN (Reason: Allergies) Label Comments: USE 2 SPRAYS IEN QHS pravastatin 40 MG tablet 40 mg PO DAILY Label Comments: TK 1 T PO ONCE D verapamil 240 MG tablet extended release 480 mg PO QHS albuterol sulfate 1 INHALER inhaler 2 puff inhalation Q4H PRN PRN (Reason: Sob &/Or Wheezing) gabapentin 300 MG capsule 300 mg PO DAILY acetaminophen 325 MG tablet 650 mg PO Q6H PRN PRN (Reason: Mild Pain (1-3)/Temp > 100.7 F) 0RF ibuprofen 600 MG tablet 600 mg PO 4X/DAY PRN (Reason: Pain) Qty: 1 0RF Lantus U-100 Insulin 100 unit/mL Cartridge 25 unit SUBCUT QHS Primary Care Provider: Pablo Lloyd Referrals: Pablo Lloyd MD [Primary Care Provider] - Disposition Disposition: Acute Care Hospital [facility]
[2022-09-25 11:14] LABS: Bacteria 0 SEEN /hpf (None Seen); Mucous, Urine 0 SEEN /hpf (<or=2+); Squamous Epithelial Cells - UA 0 SEEN /hpf (0-5); White Blood Cells 0 SEEN /hpf (0-5)
[2022-09-25 11:17] LABS: Glucose, Dipstick 1000 mg/dl (Normal); Ketone-Dipstick Negative (Negative); Leukocyte Esterase-Dipstick Negative /ul (Negative); Nitrite-Dipstick Negative (Negative); Occult Blood-Urine 25 /ul (Negative); Protein-Dipstick 100 mg/dl (Negative); Specific Gravity, Urine 1.015 (1.002-1.030); Urine Bilirubin Dipstick Negative (Negative); Urine Urobilinogen Normal (Normal)
[2022-09-25 11:26] LABS: Color, Urine Yellow (Yellow); Urine Clarity Clear (Clear)
[2022-09-25 11:30] LABS: Red Blood Cells-Urine 0-5 SEEN /hpf (0-5)
--- NOTE | 2022-09-25 11:38 | ECHOCS_ITS ---
Reason For Study: HTN Procedure This was a 2D Doppler, Color Flow transthoracic echocardiogram. The study was technically difficult. Contrast injection was performed. Exam performed portable in ICU/CCU. Left Ventricle Apical false tendon noted. Left ventricular systolic function is normal. The estimated ejection fraction is 70 %. Diastolic function is indeterminate. No regional wall motion abnormalities noted. Right Ventricle Normal systolic function. Atria Normal left atrium. Normal right atrium. No doppler evidence for ASD. Mitral Valve There is no mitral annular calcification. Normal mitral valve. Trivial eccentric mitral valve insufficiency. Tricuspid Valve Normal tricuspid valve. Aortic Valve Trisinus/trileaflet aortic valve. Normal aortic valve. Pulmonic Valve The pulmonic valve is not well visualized. Great Vessels Mildly dilated aortic root. Pericardium/Pleural No pericardial effusion. Medication Diluted definity 2ml given slow IV push to enhance endocardial definition. MMode/2D Measurements & Calculations Ao root diam: 4.0 cm SV(MOD-sp4): 139.1 ml LVAd ap4: 53.0 cm2 LVLd ap4: 10.3 cm EDV(MOD-sp4): 223.3 ml EDV(sp4-el): 230.9 ml LVAs ap4: 28.6 cm2 LVLs ap4: 8.3 cm ESV(MOD-sp4): 84.2 ml ESV(sp4-el): 83.9 ml EF(MOD-sp4): 62.3 % EF(sp4-el): 63.7 % SV(sp4-el): 147.0 ml LA dimension(2D): 4.6 cm Time Measurements MV dec time: 0.13 sec Doppler Measurements & Calculations MV E max gregg: 66.2 cm/sec Lat Peak E' Gregg: 4.8 cm/sec Med Peak E' Gregg: 6.8 cm/sec MV A max gregg: 103.0 cm/sec E/E' lat: 13.8 E/E' med: 9.7 MV E/A: 0.64 MV V2 max: 96.6 cm/sec Ao V2 max: 134.1 cm/sec MV max P.7 mmHg MV dec slope: 490.9 cm/sec2 Ao max P.2 mmHg MV V2 mean: 61.5 cm/sec Ao V2 mean: 91.6 cm/sec MV mean P.7 mmHg Ao mean P.9 mmHg MV V2 VTI: 24.3 cm Ao V2 VTI: 21.7 cm LV V1 max: 135.0 cm/sec PA V2 max: 112.2 cm/sec LV V1 max P.3 mmHg PA V2 mean: 62.9 cm/sec ECHO/Echo Complete W/ Contrast Interpretation Summary The study was technically difficult. Contrast injection was performed. Left ventricular systolic function is normal. The estimated ejection fraction is 70 %. Apical false tendon noted. Trivial eccentric mitral valve insufficiency. Mildly dilated aortic root. Diastolic function is indeterminate. Ordering Physician: Mila Aragon Referring Physician: Pablo Lloyd M.D. Performed By: Angelina Arciniega RCS
--- NOTE | 2022-09-25 11:38 | MRI_ITS ---
STUDY: MRI BRAIN WITHOUT CONTRAST REASON FOR EXAM: Male, 37 years old. dysmetria TECHNIQUE: Multiplanar multisequence imaging of the brain was performed without the administration of intravenous contrast. COMPARISON: Noncontrast head CT same date FINDINGS: The ventricles, cisterns, and sulci are within are mildly prominent consistent with mild volume loss. There is no restricted diffusion to suggest acute ischemia or infarction. No succeptibility artifict to suggest intracranial hemorrhage or mineralization. Major intracranial signal voids are preserved. There is scattered high T2/FLAIR signal seen in the periventricular deep white matter. There is no midline shift, mass effect, or extra axial fluid collections are seen. No CP angle or IAC mass is seen. The orbits are unremarkable. The sella turcica and craniovertebral junction are within normal limits. Left maxillary sinus mucoperiosteal disease. The mastoid air cells are clear. MRI/Brain without Contrast IMPRESSION: Mild volume loss with changes of mild chronic microvascular ischemia. No intracranial hemorrhage, acute infarct, or space occupying lesion seen on this noncontrast MRI of the brain. Electronically Signed: Enmanuel Bond MD at 16:22 EST ,
--- NOTE | 2022-09-25 11:43 | NURSING ---
ICU [facility]
--- NOTE | 2022-09-25 11:50 | HP.PCM.HOS_ITS ---
HPI - General General Date of Admission: 09/25/22 Date of Service: 09/25/22 Chief Complaint: HTN Emergency HPI Narrative CHIDI ALVAREZ, is a 37 M who presented to the emergency department [facility] on 09/25/2022 with a chief complaint of blurred vision, balance issues, and elevated blood pressure. Patient has a known history of hypertension however he has not taken his medication for the last 2 weeks. He states he ran out and was unable to get them refilled secondary to monetary reasons. He did have some clonidine at home and took 1 dose about 2 days ago with no noted improvement. He has not taken any other his other medications including Cardizem, lisinopril, or chlorthalidone. Upon presentation he reported a global headache, blurred vision, and his mother reported he was having some balance issues leaning to the right and stumbling to the right. He had no new tingling numbness or weakness but does have bilateral lower extremity neuropathy related to his diabetes. He has had no chest pain but does complain of some mild shortness of breath. He has had no nausea vomiting or abdominal pain. He does have some reflux symptoms for which he takes omeprazole but has not been able to afford this either. He has no urinary complaints and reports that he has been taking his basal insulin. Vital signs on presentation demonstrated temperature of 95.4, heart rate 105, blood pressure 225/149, respiratory rate was 17 and oxygen saturation was 96 to 97% on room air. CBC shows a mild leukocytosis with a white count of 11.7 as well as an erythrocytosis with a hemoglobin of 17.6. His platelets were normal. There was no left shift. Coags are normal. He had pseudohyponatremia with a sodium of 133 and a blood glucose of 316. His chemistry panel was otherwise unremarkable. Liver functions are normal. Initial troponin was 70. UA shows proteinuria, glucosuria and small amount of occult blood. There are no signs of infection. CT of the brain showed no acute intercranial processes. EKG showed normal sinus rhythm with normal intervals with some flattening of his T waves in the lateral leads but no significant changes consistent with acute ischemia. With his markedly elevated blood pressure, in the emergency department he was started on a Cardene drip with goal reduction to about 190 systolic which was achieved. Diastolic a drop to 125. Patient reported that he was overall feeling much better and appears his neurological exam have improved with improved vision as well as improved dysmetria. [facility] Medical History (Updated 09/25/22 @ 14:[address] Mila Aragon, DO) Abdominal panniculus, symptomatic Abdominal wall abscess Benign essential hypertension Cellulitis and abscess of other specified site Gastroesophageal reflux disease Hyperglycemia due to type 2 diabetes mellitus Hyperlipidemia Intertrigo Morbid obesity Open wound anterior abdominal wall Panniculitis Severe sepsis Smoker Type 2 diabetes mellitus Home Medications albuterol sulfate 90 mcg/actuation aerosol inhaler 2 puff inhalation Q4H PRN PRN Sob &/Or Wheezing 01/25/19 [History Last Taken 01/25/19 08:00] chlorthalidone 25 mg tablet 25 mg PO DAILY BLOOD PRESSURE 01/25/19 [History Last Taken 01/25/19 12:00] citalopram 40 mg tablet 40 mg PO DAILY DEPRESSION 01/25/19 [History Last Taken 01/25/19 12:00] esomeprazole magnesium 40 mg capsule,delayed release 40 mg PO BIDCM HEARTBURN 01/25/19 [History Last Taken 01/25/19 12:00] fluticasone propionate 50 mcg/actuation nasal spray,suspension 2 spry PO PRN PRN Allergies 01/25/19 [History Last Taken 01/24/19 22:00] lisinopril 40 mg tablet 40 mg PO DAILY BP 01/25/19 [History Last Taken 01/25/19 12:00] pravastatin 40 mg tablet 40 mg PO DAILY CHOLESTEROL 01/25/19 [History Last Taken 01/25/19 12:00] verapamil 240 mg tablet,extended release 480 mg PO QHS HEART 01/25/19 [History Last Taken 01/24/19 22:00] ibuprofen 600 mg tablet 600 mg PO 4X/DAY PRN Pain #1 TAB 01/28/19 [Rx Last Taken Unknown] atorvastatin 40 mg tablet 40 mg PO QHS 09/25/22 [History Last Taken Unknown] bupropion HCl 150 mg 24 hr tablet, extended release (Wellbutrin XL) 150 mg PO DAILY 09/25/22 [History Last Taken Unknown] gabapentin 800 mg tablet 800 mg PO BID 09/25/22 [History Last Taken Unknown] insulin glargine 100 unit/mL subcutaneous cartridge 25 unit subcut QHS 09/25/22 [History Last Taken Unknown] metformin 1,000 mg tablet 1,000 mg PO BID 09/25/22 [History Last Taken Unknown] Allergy/AdvReac Type Severity Reaction Status Date / Time No Known Allergies Allergy Verified 09/25/22 09:32 Family History Father Asthma Colon cancer Heart disease CAD (coronary artery disease) Hypertension Diabetes Grandfather Asthma Heart disease Diabetes Colon cancer Mother Thyroid disorder Diabetes Grandmother Asthma Colon cancer Diabetes Surgical History S/P tonsillectomy Social History (Updated 09/25/22 @ 14:[address] Mila Aragon DO) household members: spouse housing: house Smoking Status: Current every day smoker tobacco type: cigars per week: 70 alcohol intake: never substance use type: does not use ROS Constitutional Constitutional: Denies anorexia, change in weight, chills, fatigue, fever(s), malaise, night sweats, weakness or other Eyes Eyes: Reports blurry vision and change in vision; Denies change in eye color, discharge from eye(s), double vision, erythema, eye pain, loss of vision or other ENT HEENT: Reports headache(s); Denies abnormal hearing, dysphagia, ear pain, epistaxis, hearing loss, nasal congestion, nasal discharge, post nasal drip, sinus pressure, sore throat or other Cardiovascular Cardiovascular: Denies chest pain, claudication, dyspnea on exertion, edema, lightheadedness, orthopnea, palpitations, paroxysmal nocturnal dyspnea, rapid heart rate, syncope or other Respiratory/Chest Respiratory/Chest: Reports shortness of breath with exertion; Denies cough, dyspnea, excessive phlegm production, hemoptysis, productive cough, shortness of breath at rest, wheezing or other Gastrointestinal Gastrointestinal: Denies abdominal pain, coffee ground emesis, constipation, diarrhea, dyspepsia, hematemesis, hematochezia, loose stools, melena, nausea, vomiting or other Genitourinary Genitourinary: Denies burning urination, difficulty urinating, dysuria, hematuria, nocturia, urinary frequency, urinary hesitancy, urinary incontinence, urinary urgency or other Musculoskeletal Musculoskeletal: Denies arthralgias, back pain, joint pain, joint stiffness, joint swelling, myalgias, neck pain or other Neurologic Neurologic: Reports disequilibrium, headache(s), numbness and paresthesias Psychiatric Psychiatric: Reports anxiety and depression; Denies homicidal ideation, suicidal ideation or other Endocrine Endocrinology: Denies change in body appearance, cold intolerance, excessive sweating, heat intolerance, polydipsia, polyuria or other Hematologic/Lymphatic Hematologic/Lymphatic: Denies anemia, easy bleeding, easy bruising, lymphadenopathy or other Allergic/Immunologic Allergic/Immunologic: Denies rhinitis, hives, eczemia, asthma or other Vital Signs Vital Signs Vital Signs: 09/25/22 09:32 09/25/22 10:15 09/25/22 10:17 Temperature 95.4 F L Temperature Source Temporal Pulse Rate 105 H 101 H Respiratory Rate 17 16 Respiratory Effort Normal Non-Labored Respiratory Pattern Normal Blood Pressure 255/149 H 209/133 H Blood Pressure Mean 184 158 Blood Pressure Source Blood Pressure Position Blood Pressure Location Pulse Ox 96 97 Oxygen Delivery Method Room Air Room Air 09/25/22 10:25 09/25/22 11:07 09/25/22 11:09 Temperature Temperature Source Pulse Rate 101 H 100 Respiratory Rate 14 16 Respiratory Effort Respiratory Pattern Blood Pressure 209/133 H 226/124 H 196/120 H Blood Pressure Mean 158 158 145 Blood Pressure Source Monitor Monitor Blood Pressure Position Semi-Fowlers Blood Pressure Location Right Arm Pulse Ox 97 97 Oxygen Delivery Method 09/25/22 11:40 Temperature Temperature Source Pulse Rate 109 H Respiratory Rate 16 Respiratory Effort Respiratory Pattern Blood Pressure 210/117 H Blood Pressure Mean 148 Blood Pressure Source Monitor Blood Pressure Position Semi-Fowlers Blood Pressure Location Right Arm Pulse Ox 95 Oxygen Delivery Method Weight Weight: 215.456 kg Body Mass Index (BMI) 61.0 Physical Exam Const alert, oriented x3, no apparent distress and well nourished Constitutional Narrative: Morbidly obese, middle-aged, white male sitting up in bed, mother at bedside, patient states he is feeling overall much better compared to presentation with initiation of a Cardene drip General Appearance: cooperative HEENT normocephalic, head/scalp atraumatic, hearing grossly normal bilaterally and moist oral mucous membranes HEENT Narrative: Mallampati 3-4, no thrush Eyes PERRL, EOMs intact bilaterally and conjunctivae normal Eyes Narrative: No scleral icterus Neck no lymphadenopathy and supple Neck Narrative: Trachea midline, no thyroid enlargement Resp normal respiratory effort, no retractions, no use of accessory muscles and clear to auscultation bilaterally Resp Narrative: Diminished but suspect this is related to body habitus Auscultation: Negative for crackles, rhonchi or wheezes Cardio regular rate, regular rhythm, S1 normal heart sound, S2 normal heart sound, no murmurs, no rub, no clicks and no JVD; Negative for no gallops Cardio Narrative: S4 gallop GI normal to inspection, nondistended, normoactive bowel sounds, soft to palpation and non-tender GI Narrative: Large protuberant abdomen with pannus Extremity Extremity Narrative: Trace bilateral lower extremity edema, 2+ pedal pulses that are bounding, no cyanosis or clubbing Neuro oriented x3, CN's II-XII intact bilaterally, moves all extremities and no focal motor deficits Neuro Narrative: Very mild dysmetria especially noted with right Coordination / Balance: [id number] test normal; Negative for [id number] test normal Speech: speech normal Motor Exam: strength 5/5 throughout Psych affect normal Psych Narrative: Very pleasant, appropriately interactive Results Lab / Micro Data Result Diagrams: 09/25/22 10:00 09/25/22 10:00 Labs: Laboratory Results - last 24 hr 09/25/22 10:00: WBC 11.7 H, RBC 6.40 H, Hgb 17.6 H, Hct 52.6, MCV 82.2, MCH 27.5, MCHC 33.5, RDW Std Deviation 37.7, RDW Coeff of Debi 12.6, Plt Count 281, MPV 10.8, Immature Gran % (Auto) 0.700, Neut % (Auto) 68.8, Lymph % (Auto) 19.5, [place] % (Auto) 7.5, Eos % (Auto) 2.7, Baso % (Auto) 0.8, Absolute Neuts (auto) 8.0 H, Absolute Lymphs (auto) 2.28, Nucleated RBC % 0 09/25/22 10:00: PT 12.6, INR 1.0, APTT 27.0 09/25/22 10:00: Sodium 133 L, Potassium 3.5, Chloride 100, Carbon Dioxide 23.0, Anion Gap 10, BUN 11, Creatinine 0.97, Estim Creat Clear Calc 120.05, Est GFR (MDRD) Af Amer 111, Est GFR (MDRD) Non-Af 92, BUN/Creatinine Ratio 11.4, Glucose 316 H, Calcium 9.3, Total Bilirubin 0.30, AST 8 L, ALT 16, Alkaline Phosphatase 147 H, Troponin I High Sens 70, Total Protein 7.3, Albumin 3.4, Globulin 3.9, Albumin/Globulin Ratio 0.9 09/25/22 11:00: Urine Color Yellow, Urine Clarity Clear, Urine pH 6.0, Ur Specific [place] 1.015, Urine Protein 100 H, Urine Glucose (UA) 1000 H, Urine Ketones Negative, Urine Occult Blood 25 H, Urine Nitrite Negative, Urine Bilirubin Negative, Urine Urobilinogen Normal, Ur Leukocyte Esterase Negative, Urine RBC 0-5 SEEN, Urine WBC 0 SEEN, Ur Squamous Epith Cells 0 SEEN, Urine Bacteria 0 SEEN, Urine Mucus 0 SEEN Rhythm Strip Rhythm Strip: Sinus Tach Rate: 101 Ectopy: None Radiology Impression Brain CT 09/25/22 09:48 IMPRESSION: No acute intracranial process. Electronically Signed: Vandana Dangelo MD at 10:51 EST , Assessment & Plan Assessment/Plan (1) Hypertensive emergency: (2) Cerebellar dysmetria: (3) Proteinuria: (4) Hyperglycemia due to type 2 diabetes mellitus: (5) Erythrocytosis: PLAN: Plan Hypertensive emergency -Patient with blurred vision, headache, dysmetria-R, gait abnormality per report -Symptoms improving with blood pressure treatment -No other signs of endorgan damage at this time however patient does have mild proteinuria however creatinine is normal -Continue Cardene drip -We will start home as well as lisinopril at half his home dose -Initial blood pressure reduction goal is approximately 25% with goal for later today to be below 180/100 -We will further titrate medications tomorrow to try blood pressure below 160/90 -Blood pressure elevation and noncompliance is related to patient not being able to afford medication and not being able to get into his primary care physician for follow-up -Case management consulted for medication assistance -We will check MRI with neurological changes -Check TSH -Check echocardiogram -Continue home CPAP -Cycle cardiac enzymes however first troponin is normal Cerebellar dysmetria -Likely related to above hypertension however will obtain MRI given risk factors -Symptoms seem to be improved with blood pressure control improving Erythrocytosis -We will repeat in a.m. and if remains elevated will do secondary work-up -This does not appear to be a chronic issue Proteinuria -Suspect related to blood pressure and diabetes -Recommend outpatient follow-up -Renal functions normal Hyperglycemia with history of DM-2 -Patient states he has been compliant with his basal insulin -Continue home basal insulin -Check hemoglobin A1c -High-dose sliding scale -Accu-Cheks as ordered -Carb control/cardiac diet GERD -Continue PPI twice daily Hyperlipidemia -Continue atorvastatin Peripheral neuropathy secondary to DM-2 -Continue home gabapentin 800 mg p.o. twice daily Hypertension -See above Tobacco abuse -Recommend cessation -Patient admits to using smoking 10 cigars daily -Nicotine patch ordered Morbid obesity -BMI is 53.4 -Recommend weight loss -Complicates treatment, prognosis, outcomes DVT prophylaxis -Lovenox 40 mg SQ twice daily CODE STATUS -Full code Charges/Coding Visit Charges Inpatient E&M: 61607 Init Hosp L3
--- NOTE | 2022-09-25 11:55 | NURSING ---
ICU 6
--- NOTE | 2022-09-25 12:11 | ED.RN ---
called report to Jennifer in ICU, will call when RN arrives to take pt
[2022-09-25 12:15] LABS: Troponin-I HS 67 pg/mL (3.0-78.0)
[2022-09-25] MEDS: Nicardipine HCl-0.9% Sod Chlor 20 MG/200 ML IV.SOLN 100 MG CONT INF (13:27)
--- NOTE | 2022-09-25 15:00 | CASEMGMT ---
RN CM NOTE: Pt out of room at this time for MRI. Unable to complete initial RN CM assessment. Kyle BSN RN CM
--- NOTE | 2022-09-25 15:03 | NURSING ---
patient off floor at 1430 for MRI with radiology nurse.
[2022-09-25] MEDS: Nicardipine HCl-0.9% Sod Chlor 20 MG/200 ML IV.SOLN 125 MG CONT INF ×2 (15:08→17:00)
[2022-09-25] MEDS: Pantoprazole Sodium 40 MG Tablet PO (16:00)
[2022-09-25] MEDS: Chlorthalidone 50 MG Tablet 25 MG PO (16:00)
[2022-09-25] MEDS: Lisinopril 40 MG Tablet 20 MG PO (16:01)
[2022-09-25] MEDS: Citalopram 40 MG TABLET PO (16:01)
[2022-09-25] MEDS: buPROPion (XL) 150 MG TABLET.XL PO (16:01)
[2022-09-25] MEDS: Insulin Lispro 100 UNIT/ML INSULN.PEN SC (16:55)
[2022-09-25 17:45] LABS: Bedside Glucose 415 mg/dL (74-106)
[2022-09-25] MEDS: Acetaminophen 325 MG Tablet 650 MG PO (19:49)
[2022-09-25] MEDS: Mag Hydrox/Al Hydrox/Simeth 30 ML UDC PO (19:49)
[2022-09-25] MEDS: Ondansetron 4 MG/2 ML Vial IV (19:49)
[2022-09-25 20:14] LABS: Troponin-I HS 159 pg/mL (3.0-78.0)
[2022-09-25] MEDS: Enoxaparin 40 MG/0.4 ML Syringe SC (20:31)
[2022-09-25] MEDS: Atorvastatin Calcium 40 MG Tablet PO (20:31)
[2022-09-25] MEDS: Insulin Glargine-YFGN 100 UNIT/ML Pen 25 UNIT SC (20:31)
[2022-09-25] MEDS: Gabapentin 800 MG Tablet PO (20:36)
--- NOTE | 2022-09-25 20:39 | EKG12_ITS ---
Test Reason : TROP ELEVATION Blood Pressure : / mmHG Vent. Rate : 108 BPM Atrial Rate : 108 BPM P-R Int : 162 ms QRS Dur : 090 ms QT Int : 388 ms P-R-T Axes : 058 047 084 degrees QTc Int : 519 ms Sinus tachycardia Poor R wave progression Nonspecific ST and T wave abnormality Confirmed by ROSALINDA PATRICIA, MICHI ([id number]), editor & co founder [employer] ([id number]) on 09/27/2022 9:09:45 AM Referred By: MARITZA Confirmed By:MICHI TELLEZ MD
[2022-09-25 22:50] LABS: Bedside Glucose 358 mg/dL (74-106)
--- NOTE | 2022-09-25 23:25 | CPS ---
Patient refuses PAP at this time
[2022-09-26] VITALS (38 sets, daily range): BP systolic 120–216; BP diastolic 76–122; PULSE 81–120; RESP 14–24; TEMP 36.3–36.6; O2SAT 91–100
[2022-09-26 03:29] LABS: Absolute Lymphocyte Count 2.94 X10^3/uL (0.83-4.51); Absolute Neutrophil Count 10.3 X10^3/uL (2.0-7.7); Basophil# 0.09 X10^3/uL; Basophil% 0.6 % (0-1); Eosinophil# 0.24 X10^3/uL; Eosinophils% 1.6 % (0-5); Hematocrit 49.7 % (40-54); Hemoglobin 16.8 g/dL (13.0-16.5); Lymphocyte # 2.94 X10^3/ul (0.83-4.51); Lymphocyte % 20.1 % (19-41); Mean Corp Hgb Conc 33.8 g/dL (32-36); Mean Corpuscular Volume 82.7 fL (80-94); Mean Platelet Vol. 10.5 fl (6.2-12.0); Monocyte# 0.99 X10^3/uL; Monocyte% 6.8 % (0-10); NRBC Flagged by Analyzer 0 % (0-5); Neutrophil # 10.27 X10^3/uL (2.7-7.7); Neutrophil % 70.1 % (47-70); Platelet Count 348 K/mm3 (150-450); RBC Distribution Width CV 12.5 % (11.6-14.6); RBC Distribution Width SD 37.8 fl (35.1-43.9); Red Blood Count 6.01 M/mm3 (4.6-6.2); White Blood Count 14.7 K/mm3 (4.4-11.0)
[2022-09-26 03:56] LABS: ALB/GLOB Ratio 0.9 RATIO (0.9-2.4); AST(SGOT) 15 U/L (15-37); Alanine Aminotransfer ALT/SGPT 16 U/L (16-61); Albumin, Serum 3.1 g/dL (3.2-5.0); Alkaline Phosphatase 121 U/L (45-117); Anion Gap 9 (5-15); BUN 10 mg/dL (7-18); BUN/Creat Ratio 10.2 RATIO (10-20); Chloride 100 mmol/L (98-107); Creatinine, Serum 0.98 mg/dL (0.70-1.30); EST Glomerular Filtration Rate 91 mL/min (>60); Est Glom Filt Rate - Afr Amer 110 mL/min (>60); Estimated Creatinine Clearance 118.83 ml/min; Globulin 3.6 g/dL (2.2-4.2); Glucose 315 mg/dL (74-106); Potassium 3.8 mmol/L (3.5-5.1); Protein, Total 6.7 g/dL (6.4-8.2); Sodium Level 134 mmol/L (136-145); Thyroid Stim Hormone (TSH) 0.75 uIU/mL (0.358-3.74)
[2022-09-26 07:59] LABS: Hemoglobin A1c 9.8 % (3.8-5.6)
[2022-09-26] MEDS: Insulin Lispro 100 UNIT/ML INSULN.PEN SC ×3 (08:17→16:49)
[2022-09-26 08:40] LABS: Bedside Glucose 320 mg/dL (74-106)
[2022-09-26] MEDS: Lisinopril 40 MG Tablet PO (09:22)
[2022-09-26] MEDS: Pantoprazole Sodium 40 MG Tablet PO ×2 (09:22→16:50)
[2022-09-26] MEDS: Enoxaparin 40 MG/0.4 ML Syringe SC ×2 (09:23→20:30)
[2022-09-26] MEDS: Gabapentin 800 MG Tablet PO ×2 (09:26→20:35)
[2022-09-26] MEDS: FLU VACC QS2022-23(6MOS UP)/PF 60 MCG/0.5 ML SYRINGE IM (09:29)
[2022-09-26] MEDS: Chlorthalidone 50 MG Tablet 25 MG PO (10:54)
[2022-09-26] MEDS: Citalopram 40 MG TABLET PO (10:54)
[2022-09-26] MEDS: buPROPion (XL) 150 MG TABLET.XL PO (10:55)
[2022-09-26 11:55] LABS: Bedside Glucose 315 mg/dL (74-106)
--- NOTE | 2022-09-26 11:56 | CHAPLAIN ---
Type of Pastoral Visit _x__ Initial Visit ___ Follow-up Visit ___ On-call Visit ___ General Patient Visit ___ Spiritual Assessment ___ Family Conference ___ Bereavement ___ Rapid Response ___ Code Blue ___ Other (describe below) Pastoral Care Referral From _x__ Patient ___ Family ___ Nurse ___ Physician ___ Facilities Flight Check Pilot ___ Brand Ambassador Promotional Model ___ Other (describe below) Sacrament/Intervention _x__ Active listening ___ Anointing ___ Buddhist ___ Bereavement ___ Communion _x__ Charlee exploration ___ _x__ Life review _x__ Prayer ___ Reconciliation ___ Sacrament of Sick _x__ Supportive presence ___ Wedding ___ Other (describe below) Pastoral Comments patient expresses eagerness to talk to this environmental aide; pt acknowledges his health need and that of several family members who are sick now; pt speaks of developing his charlee and talks about his past experiences in hindu; pt senses his need to lead his children in charlee and asks questions about the same; pt was very talkative and time was given to listen and affirm his charlee; pt stated that he benefited from someone listening and taking time with him; pt welcomed prayer;
--- NOTE | 2022-09-26 13:26 | NURSING ---
Unable to chart titrations. Charted in vitals signs. Cardene drip remained off until new bag hung and restarted as documented.
--- NOTE | 2022-09-26 13:49 | PCM.PN.HOSP ---
Subjective Subjective It says vision is almost back to baseline. No further gait difficulties with deviation to the right. Overall is feeling much better. Remains on Cardene drip at this time however we will try to wean this and initiate home medications. I would like the goal today to be between 140 and 160 systolic if possible. Objective Data Objective Data Vital Signs: Vital Signs Temp Pulse Resp BP Pulse Ox O2 Del Method FiO2 97.9 F 118 H 22 H 194/113 H 98 Room Air 21 09/26/22 12:00 09/26/22 13:00 09/26/22 13:00 09/26/22 13:15 09/26/22 13:00 09/26/22 13:00 09/26/22 07:00 Oxygen Delivery Method Room Air Weight: 190.4 kg Body Mass Index (BMI) 53.4 Intake & Output: Intake and Output for Last 24 Hours 09/24/22 09/25/22 09/26/22 23:59 23:59 23:59 Intake Total 1884.59 / 2009.59 1221.25 / 1221.25 Output Total 1350 / 1350 900 / 900 Balance 534.59 / 659.59 321.25 / 321.25 Lab / Micro Data Result Diagrams: 09/26/22 03:20 09/26/22 03:20 Labs: Laboratory Results - last 24 hr 09/25/22 16:53: POC Glucose 415 H 09/25/22 19:35: Troponin I High Sens 159 H* 09/25/22 20:35: POC Glucose 358 H 09/26/22 03:20: WBC 14.7 H, RBC 6.01, Hgb 16.8 H, Hct 49.7, MCV 82.7, MCH 28.0, MCHC 33.8, RDW Std Deviation 37.8, RDW Coeff of Debi 12.5, Plt Count 348, MPV 10.5, Immature Gran % (Auto) 0.800, Neut % (Auto) 70.1 H, Lymph % (Auto) 20.1, Mineral % (Auto) 6.8, Eos % (Auto) 1.6, Baso % (Auto) 0.6, Absolute Neuts (auto) 10.3 H, Absolute Lymphs (auto) 2.94, Nucleated RBC % 0 09/26/22 03:20: Sodium 134 L, Potassium 3.8, Chloride 100, Carbon Dioxide 25.0, Anion Gap 9, BUN 10, Creatinine 0.98, Estim Creat Clear Calc 118.83, Est GFR (MDRD) Af Amer 110, Est GFR (MDRD) Non-Af 91, BUN/Creatinine Ratio 10.2, Glucose 315 H, Calcium 9.0, Total Bilirubin 0.40, AST 15, ALT 16, Alkaline Phosphatase 121 H, Total Protein 6.7, Albumin 3.1 L, Globulin 3.6, Albumin/Globulin Ratio 0.9, TSH 0.75 09/26/22 03:20: Hemoglobin A1c 9.8 H 09/26/22 08:16: POC Glucose 320 H 09/26/22 11:33: POC Glucose 315 H Radiography Diagnostic Testing: Radiology Impression Brain MRI 09/25/22 11:38 IMPRESSION: Mild volume loss with changes of mild chronic microvascular ischemia. No intracranial hemorrhage, acute infarct, or space occupying lesion seen on this noncontrast MRI of the brain. Electronically Signed: Enmanuel Bond MD at 16:22 EST , Echocardiogram 09/25/22 11:38 Interpretation Summary The study was technically difficult. Contrast injection was performed. Left ventricular systolic function is normal. The estimated ejection fraction is 70 %. Apical false tendon noted. Trivial eccentric mitral valve insufficiency. Mildly dilated aortic root. Diastolic function is indeterminate. Ordering Physician: Mila Aragon Referring Physician: Pablo Lloyd M.D. Performed By: Angelina Arciniega RCS Rhythm Strip Rhythm Strip: Sinus Tach Rate: 101 Ectopy: None Physical Exam Const alert, oriented x3, no apparent distress and well nourished Constitutional Narrative: Morbidly obese, middle-aged, white male lying prone in bed, texting on phone, appears comfortable and nontoxic General Appearance: cooperative HEENT normocephalic, head/scalp atraumatic, hearing grossly normal bilaterally and moist oral mucous membranes HEENT Narrative: Mallampati 3-4, no thrush Resp normal respiratory effort, no retractions, no use of accessory muscles and clear to auscultation bilaterally Resp Narrative: Diminished but suspect this is related to body habitus Auscultation: Negative for crackles, rhonchi or wheezes Cardio regular rate, regular rhythm, S1 normal heart sound, S2 normal heart sound, no murmurs, no rub, no gallops, no clicks and no JVD GI normal to inspection, nondistended, normoactive bowel sounds, soft to palpation and non-tender GI Narrative: Large protuberant abdomen with pannus Extremity Extremity Narrative: Trace bilateral lower extremity edema, 2+ pedal pulses that are bounding, no cyanosis or clubbing Neuro oriented x3, moves all extremities and no focal motor deficits Neuro Narrative: Dysmetria has resolved Speech: speech normal Motor Exam: strength 5/5 throughout Psych affect normal Psych Narrative: Very pleasant, appropriately interactive Assessment & Plan Assessment/Plan (1) Hypertensive emergency: (2) Cerebellar dysmetria: (3) Proteinuria: (4) Hyperglycemia due to type 2 diabetes mellitus: (5) Erythrocytosis: PLAN: Plan Hypertensive emergency -Patient with blurred vision, headache, dysmetria-R, gait abnormality per report -Symptoms improving with blood pressure treatment -No other signs of endorgan damage at this time however patient does have mild proteinuria however creatinine is normal -We will try to wean Cardene drip today -Restart chlorthalidone -Increase lisinopril to home dose 40 mg daily -Restart home verapamil -Monitor blood pressures and goal for today will be 140-160 -Blood pressure elevation and noncompliance is related to patient not being able to afford medication and not being able to get into his primary care physician for follow-up -Case management consulted for medication assistance--> abel with case management this morning -MRI was negative for any acute findings -TSH within normal limits -Echocardiogram demonstrated an EF of 70% with a mildly dilated aortic root -Slight elevation in cardiac enzymes--> with echocardiogram I suspect this is likely related to his markedly elevated blood pressure -No further work-up at this time Cerebellar dysmetria -Likely related to above hypertension however will obtain MRI given risk factors -Resolved Erythrocytosis -Down to 16 but still elevated -Would recommend outpatient follow-up with oncology but I suspect this is related to his tobacco abuse and possibly obesity hypoventilation syndrome Proteinuria -Suspect related to blood pressure and diabetes -Recommend outpatient follow-up -Renal functions normal Hyperglycemia with history of DM-2 -Patient states he has been compliant with his basal insulin--> 25 units at at bedtime -Increase Lantus to 35 units at at bedtime as a.m. fasting blood sugar was 315 -A1c was 9.8 indicating poor control -High-dose sliding scale -Accu-Cheks as ordered -Carb control/cardiac diet -Home metformin on hold GERD -Continue PPI twice daily Hyperlipidemia -Continue atorvastatin Peripheral neuropathy secondary to DM-2 -Continue home gabapentin 800 mg p.o. twice daily Hypertension -See above Tobacco abuse -Recommend cessation -Patient admits to using smoking 10 cigars daily -Nicotine patch ordered Morbid obesity -BMI is 53.9 -Recommend weight loss -Complicates treatment, prognosis, outcomes DVT prophylaxis -Lovenox 40 mg SQ twice daily CODE STATUS -Full code Charges/Coding Visit Charges Inpatient E&M: 32934 Subs Hosp L2
--- NOTE | 2022-09-26 14:00 | CASEMGMT ---
Addendum entered by Esme Garcia 09/26/22 15:44: Specialists: Pt states none Original Note: RN CM [employer] CM to room to meet with patient for initial transition planning/care coordination assessment. RN VANESSA introduced self and role at [facility]. Pt voices understanding and consents to assessment at this time. Pt resting in bed in no distress at this time. Pt is A/O at this time and answers all questions appropriately. Care providers, pharmacy, and demographics verified/updated at this time. PCP: Dr Lloyd. Pt states has had to cancel several appts. He plans to call to get appt w/PCP. Specialists: Preferred Pharmacy: [facility] Retail Insurance: Endorse Prescription Benefit: Yes. Pt states it has been financially difficult to get his medications/refills, as the cost monthly for his medications is about $120. He states he also needs to get in for an appt w/PCP to get refills on some of his medications. He states he has contacted the PCP for refills on some of his meds, but they want to see him first. He states he has had to cancel several appts d/t his job, his being ill a lot, and his 16-mo-old being ill. Pt states he is not only out of his BP meds, but he also ran out of his insulin about a week ago. Finances: Pt states w/his 's recent illnesses and her not being able to work very much, they are tight financially. He states they did apply for food stamps and WIC last year, but they did not qualify. Cherie WOLF, notified of need of financial resources and for resources for Rx. Living Will/HPOA: Pt does not currently have LW/HCPOA and pt is interested in completing. Cherie WOLF, made aware. LNOK: , [place] Living Arrangements: Lives w/his , 11-yr-old dtr, and 16-month in 2-story home w/basement. Pt states he works full-time. He is independent. Transportation: Pt states drives self and states no transportation concerns at this time. also drives, but they currently only have one vehicle. DME: States has the following DME: nebulizer, Auto PAP (received directly from the bail bonding agent d/t it was a replacement for the original one he got from [facility]). Pt has a glucometer that he got through his insurance co about a year ago, but that it has not been working for the past month. He states is supposed to be checking his BS's BID. He states he has not called his insurance co about getting a replacement glucometer yet, but states can work on that this week. VENUS MENDEZ instructed him to ask for CM assistance, if needed. He voices understanding. Pt states no need for further DME at this time. HHC/SNF: No hx of either. No needs identified. Pt wishes to return home and states has no concerns with going home at time of discharge. CM to follow for any further discharge planning/needs. Pt voices no further concerns/needs at this time. Advised pt to ask for CM if any further questions/concerns/needs arise. Voices understanding. PLAN: Home SW to follow for financial and Rx resources and for AD. CM to follow for possible need of new script for glucometer. (Pt states will contact insurance co., first, about getting a replacement glucometer). Pt will need new Rx's for all medications @ d/c Kyle MILLANN VENUS MENDEZ
[2022-09-26] MEDS: Verapamil SR 240 MG Tablet 480 MG PO (14:38)
[2022-09-26] MEDS: Acetaminophen 325 MG Tablet 650 MG PO (15:25)
[2022-09-26] MEDS: hydrALAZINE 50 MG Tablet 100 MG PO ×2 (17:40→20:29)
[2022-09-26 17:46] LABS: Bedside Glucose 334 mg/dL (74-106)
[2022-09-26] MEDS: Atorvastatin Calcium 40 MG Tablet PO (20:28)
[2022-09-26] MEDS: Insulin Glargine-YFGN 100 UNIT/ML Pen 35 UNIT SC (20:29)
[2022-09-26] MEDS: Carvedilol 25 MG Tablet PO (20:29)
[2022-09-26 20:50] LABS: Bedside Glucose 323 mg/dL (74-106)
[2022-09-27] VITALS (49 sets, daily range): BP systolic 110–184; BP diastolic 74–112; PULSE 74–101; RESP 14–28; TEMP 36.3–36.6; O2SAT 90–100
[2022-09-27 03:05] LABS: Absolute Lymphocyte Count 2.72 X10^3/uL (0.83-4.51); Basophil# 0.08 X10^3/uL; Basophil% 0.7 % (0-1); Eosinophil# 0.36 X10^3/uL; Eosinophils% 3.3 % (0-5); Hematocrit 44.3 % (40-54); Hemoglobin 14.8 g/dL (13.0-16.5); Lymphocyte # 2.72 X10^3/ul (0.83-4.51); Lymphocyte % 24.7 % (19-41); Mean Corp Hgb Conc 33.4 g/dL (32-36); Mean Corpuscular Hgb 27.9 pg (27.0-32.0); Mean Corpuscular Volume 83.6 fL (80-94); Mean Platelet Vol. 10.4 fl (6.2-12.0); Monocyte# 0.73 X10^3/uL; Monocyte% 6.6 % (0-10); NRBC Flagged by Analyzer 0 % (0-5); Neutrophil # 7.03 X10^3/uL (2.7-7.7); Neutrophil % 63.9 % (47-70); Platelet Count 286 K/mm3 (150-450); RBC Distribution Width CV 12.6 % (11.6-14.6); RBC Distribution Width SD 38.5 fl (35.1-43.9)
[2022-09-27 03:23] LABS: Anion Gap 8 (5-15); BUN 14 mg/dL (7-18); Calcium,Total 8.9 mg/dL (8.5-10.1); Chloride 102 mmol/L (98-107); Creatinine, Serum 1.08 mg/dL (0.70-1.30); EST Glomerular Filtration Rate 81 mL/min (>60); Est Glom Filt Rate - Afr Amer 98 mL/min (>60); Estimated Creatinine Clearance 107.82 ml/min; Glucose 259 mg/dL (74-106); Magnesium 1.9 mg/dL (1.6-2.6); Phosphorus 3.7 mg/dL (2.5-4.9); Potassium 3.6 mmol/L (3.5-5.1); Sodium Level 134 mmol/L (136-145)
[2022-09-27] MEDS: hydrALAZINE 50 MG Tablet 100 MG PO ×3 (05:35→20:33)
[2022-09-27] MEDS: Insulin Lispro 100 UNIT/ML INSULN.PEN SC ×3 (07:50→16:16)
[2022-09-27 08:11] LABS: Bedside Glucose 267 mg/dL (74-106)
[2022-09-27] MEDS: Gabapentin 800 MG Tablet PO ×2 (08:47→20:33)
[2022-09-27] MEDS: Lisinopril 40 MG Tablet PO (08:47)
[2022-09-27] MEDS: buPROPion (XL) 150 MG TABLET.XL PO (08:47)
[2022-09-27] MEDS: Pantoprazole Sodium 40 MG Tablet PO (08:47)
[2022-09-27] MEDS: Carvedilol 25 MG Tablet PO ×2 (08:48→20:33)
[2022-09-27] MEDS: Enoxaparin 40 MG/0.4 ML Syringe SC ×2 (08:48→20:33)
[2022-09-27] MEDS: Citalopram 40 MG TABLET PO (08:48)
[2022-09-27] MEDS: amLODIPine 10 MG Tablet PO (08:50)
[2022-09-27] MEDS: TITRATION PARAMETER CHANGE 1 EACH IV (10:46)
[2022-09-27 12:20] LABS: Bedside Glucose 238 mg/dL (74-106)
--- NOTE | 2022-09-27 13:34 | CASEMGMT ---
Social Work Referral from RNCM for financial assistance and advance directives. SW met with pt and introduced self and role of SW. SW assisted pt in completing Living Will and Health Care POA naming his Albina Anthony. SW placed copies on chart and gave pt original. SW spoke with pt regarding financial barriers. Pt states that he does not have any medication at home and no money to cover cost of copays until he is paid from his employer next week. SW provided pt with prescription assistance handout along with written information from the [facility] to assist with financial concerns. Pt appreciative of information. Pt would benefit from [facility] prescription assistance program at time of discharge to ensure he has needed medications in hand when he returns home as pt has no way to cover cost of copay for meds at time of discharge. [facility] prescription assistance form completed in RF Code and placed on the front of the chart. It can be used at time of discharge to get prescriptions filled at the [facility] retail pharmacy. Bedside nurse and RNCM updated. HANNY De
--- NOTE | 2022-09-27 14:16 | PN.HOSP_ITS ---
Subjective Subjective Patient states overall he is feeling so much better with improved blood pressure control however he remains on Cardene at 7.5 despite additional medication. He indicates he is not in a hurry to get out of the hospital as he wants things taken care of prior to discharge so that is not a concern for him. We also di scussed his need for increased glycemic control as his hemoglobin A1c was elevated at 9.8 and I did increase his Lantus. Objective Data Objective Data Vital Signs: Vital Signs Temp Pulse Resp BP Pulse Ox O2 Del Method FiO2 97.8 F 84 20 H 157/99 H 92 Room Air 21 09/27/22 12:00 09/27/22 14:00 09/27/22 14:00 09/27/22 14:00 09/27/22 14:00 09/27/22 14:00 09/27/22 07:00 Oxygen Delivery Method Room Air Weight: 182.6 kg Body Mass Index (BMI) 53.4 Intake & Output: Intake and Output for Last 24 Hours 09/25/22 09/26/22 09/27/22 23:59 23:59 23:59 Intake Total 1884.59 / 2009.59 2579.58 / 2679.58 1134.59 / 1134.59 Output Total 1350 / 1350 1800 / 1800 1400 / 1400 Balance 534.59 / 659.59 779.58 / 879.58 -265.41 / -265.41 Lab / Micro Data Result Diagrams: 09/27/22 02:58 09/27/22 02:58 Labs: Laboratory Results - last 24 hr 09/26/22 16:48: POC Glucose 334 H 09/26/22 20:31: POC Glucose 323 H 09/27/22 02:58: WBC 11.0, RBC 5.30, Hgb 14.8, Hct 44.3, MCV 83.6, MCH 27.9, MCHC 33.4, RDW Std Deviation 38.5, RDW Coeff of Debi 12.6, Plt Count 286, MPV 10.4, Immature Gran % (Auto) 0.800, Neut % (Auto) 63.9, Lymph % (Auto) 24.7, [place] % (Auto) 6.6, Eos % (Auto) 3.3, Baso % (Auto) 0.7, Absolute Neuts (auto) 7.0, Abso lute Lymphs (auto) 2.72, Nucleated RBC % 0 09/27/22 02:58: Sodium 134 L, Potassium 3.6, Chloride 102, Carbon Dioxide 24.0, Anion Gap 8, BUN 14, Creatinine 1.08, Estim Creat Clear Calc 107.82, Est GFR (MDRD) Af Amer 98, Est GFR (MDRD) Non-Af 81, BUN/Creatinine Ratio 13.0, Glucose 259 H, Calcium 8.9, Phosphorus 3.7, Magnesium 1.9 09/27/22 07:49: POC Glucose 267 H 09/27/22 12:03: POC Glucose 238 H Rhythm Strip Rhythm Strip: Sinus Tach Rate: 101 Ectopy: None Physical Exam Const alert, oriented x3, no apparent distress and well nourished Constitutional Narrative: Morbidly obese, middle-aged, white male sitting up in bed watching television, appears comfortable and nontoxic General Appearance: cooperative HEENT normocephalic, head/scalp atraumatic, hearing grossly normal bilaterally and moist oral mucous membranes Resp normal respiratory effort, no retractions, no use of accessory muscles and clear to auscultation bilaterally Resp Narrative: Diminished but suspect this is related to body habitus Auscultation: Negative for crackles, rhonchi or wheezes Cardio regular rate, regular rhythm, S1 normal heart sound, S2 normal heart sound, no murmurs, no rub, no gallops, no clicks and no JVD GI normal to inspection, nondistended, normoactive bowel sounds, soft to palpation and non-tender GI Narrative: Large protuberant abdomen with pannus Extremity Extremity Narrative: Trace bilateral lower extremity edema, 2+ pedal pulses, no cyanosis or clubbing Neuro oriented x3, moves all extremities and no focal motor deficits Neuro Narrative: Dysmetria has resolved Speech: speech normal Psych affect normal Psych Narrative: Very pleasant, appropriately interactive Assessment & Plan Assessment/Plan (1) Hypertensive emergency: (2) Cerebellar dysmetria: (3) Proteinuria: (4) Hyperglycemia due to type 2 diabetes mellitus: (5) Erythrocytosis: (6) Elevated troponin I level: PLAN: Plan Hypertensive emergency -Patient with blurred vision, headache, dysmetria-R, gait abnormality per report -Symptoms are now resolved -No other signs of endorgan damage at this time however patient does have mild proteinuria however creatinine is normal -Patient remains on Cardene but dose has been weaned to 5 -Continue chlorthalidone 25 mg daily -Continue lisinopril 40 mg daily -Verapamil discontinued and Coreg 25 mg p.o. twice daily initiated last evening -Continue hydralazine 100 mg 3 times daily -Add minoxidil 10 mg daily -Blood pressure goal is less than 130/80 -Blood pressure elevation and noncompliance is related to patient not being able to afford medication and not being able to get into his primary care physician for follow-up -Case management consulted for medication assistance--> abel with case management this morning -MRI was negative for any acute findings -TSH within normal limits -Echocardiogram demonstrated an EF of 70% with a mildly dilated aortic root -Slight elevation in cardiac enzymes--> with echocardiogram I suspect this is likely related to his markedly elevated blood pressure -No further work-up at this time -If we are unable to further get his blood pressure under control and off the d rip I will consult nephrology tomorrow if we do get him better controlled I will have him follow-up with nephrology as an outpatient for blood pressure management given the fact he already has some proteinuria Troponin elevation -Echo without wall motion abnormality -Suspect this is related to his markedly elevated blood pressures on presentation -Patient without any chest pain Cerebellar dysmetria -MRI negative -Resolved Erythrocytosis -Resolved -Hemoglobin 14.8 Proteinuria -Suspect related to blood pressure and diabetes -Recommend outpatient follow-up with nephrology -Renal function normal Hyperglycemia with history of DM-2 -Patient states he has been compliant with his basal insulin--> 25 units at at bedtime -Increase Lantus to 45 units from 35 units at at bedtime as a.m. fasting blood sugar was 259 which is improved but still higher than I would like it to be -A1c was 9.8 indicating poor control -High-dose sliding scale -Accu-Cheks as ordered -Carb control/cardiac diet -Home metformin on hold GERD -Continue PPI twice daily Hyperlipidemia -Continue atorvastatin Peripheral neuropathy secondary to DM-2 -Continue home gabapentin 800 mg p.o. twice daily Hypertension -See above Tobacco abuse -Recommend cessation -Patient admits to using smoking 10 cigars daily -Nicotine patch ordered Morbid obesity -BMI is 53.9 -Recommend weight loss -Complicates treatment, prognosis, outcomes DVT prophylaxis -Lovenox 40 mg SQ twice daily CODE STATUS -Full code Charges/Coding Visit Charges Inpatient E&M: 61586 Subs Hosp L2
[2022-09-27] MEDS: Minoxidil 10 MG Tablet PO (14:17)
[2022-09-27 16:30] LABS: Bedside Glucose 222 mg/dL (74-106)
--- NOTE | 2022-09-27 18:04 | NURSING ---
patient's mother in the room causing agitation to the patient. Dr Aragon aware of increase in BP ok with me keeping Cardene at 5mg for now until after the mother leaves.
[2022-09-27] MEDS: Insulin Glargine-YFGN 100 UNIT/ML Pen 45 UNIT SC (20:33)
[2022-09-27] MEDS: Atorvastatin Calcium 40 MG Tablet PO (20:33)
[2022-09-27 21:00] LABS: Bedside Glucose 204 mg/dL (74-106)
[2022-09-28] VITALS (35 sets, daily range): BP systolic 126–165; BP diastolic 76–138; PULSE 72–106; RESP 13–27; TEMP 36.2–36.7; O2SAT 90–100
[2022-09-28 04:06] LABS: Anion Gap 8 (5-15); BUN 12 mg/dL (7-18); BUN/Creat Ratio 12.2 RATIO (10-20); Calcium,Total 8.9 mg/dL (8.5-10.1); Chloride 103 mmol/L (98-107); Creatinine, Serum 0.98 mg/dL (0.70-1.30); EST Glomerular Filtration Rate 90 mL/min (>60); Est Glom Filt Rate - Afr Amer 109 mL/min (>60); Estimated Creatinine Clearance 118.83 ml/min; Glucose 215 mg/dL (74-106); Potassium 3.5 mmol/L (3.5-5.1); Sodium Level 136 mmol/L (136-145)
[2022-09-28] MEDS: hydrALAZINE 50 MG Tablet 100 MG PO ×3 (05:10→21:19)
--- NOTE | 2022-09-28 06:56 | RDU_ITS ---
Reason For Study: HTN Right Renal Artery Left Renal Artery Right renal artery mid 120.7/45.6 Left renal artery mid 155.4/45.8 PSV/EDV. PSV/EDV . Right renal artery distal Left renal artery distal 131.3/32.7 159.3/43.0 PSV/EDV. PSV/EDV. Right Renal Parenchyma Left Renal Parenchyma Upper Pole Medula 34.8/10.2 Left upper pole medulla 37.8/11.9 PSV/EDV. PSV/EDV . Right upper pole medulla EDR .29 . Left upper pole medulla EDR .32 . Right upper pole medulla R.I. .71 . Left upper pole medulla R.I. .68 . Upper Stuart Cortx 31.1/10.2 PSV/EDV. UP Cortex 26.6/9.0 PSV/EDV. Right upper pole cortex EDR .33 . Left upper pole cortex EDR .34 . Right upper pole cortex R.I. .67 . Left upper pole cortex R.I. .66 . Right lower Pole medulla 32.9/10.2 Left lower Pole medulla 26.6/9.0 PSV/EDV . PSV/EDV . Right lower pole medulla EDR .31 . Left lower pole medulla EDR .34 . Right lower pole medulla R.I. .69 . Left lower pole medulla R.I. .66 . Lower Pole Cortex 18.8/6.5 PSV/EDV. Lower Pole Cortx 22.2/6.8 PSV/EDV. Right lower pole cortex EDR .35 . Left lower pole cortex EDR .31 . Right lower pole cortex R.I. .65 . Left lower pole cortex R.I. .69 . Right Renal Hilar Left Renal Hilar Right hilar acceleration time 50 Left hilar acceleration time 60 m/sec. m/sec. Right Hilar avg 51.1/19.3 PSV/EDV. LT Hilar avg 54.0/14.5 PSV/EDV . Right Renal Dimensions Left Renal Dimensions Right kidney size 12.48 cm . Left kidney size 12.31 cm . Right cortical dimension 2.44 cm . Left cortical dimension 1.98 cm . Aorta Proximal abdominal aorta 1.74 X 1.65 cm . Proximal abdominal aorta peak systolic velocity is 71.9 cm/sec . Normal renal veins bilat. Limited study due to pt boidy habitus. Pt is 475 lbs. VL/Renal Artery Duplex Ultrasound Interpretation Summary Right renal artery patent with normal velocities and no evidence of stenosis Left renal artery patent with normal velocities and no evidence of stenosis Right renal vein patent Left renal vein patent Right kidney normal in size Left kidney normal in size Ordering Physician: Mila Aragon Performed By: Teodoro Phillips RVT
[2022-09-28] MEDS: Insulin Lispro 100 UNIT/ML INSULN.PEN SC ×3 (07:56→17:09)
[2022-09-28 08:16] LABS: Bedside Glucose 198 mg/dL (74-106)
[2022-09-28] MEDS: Carvedilol 25 MG Tablet PO ×2 (09:07→21:18)
[2022-09-28] MEDS: Pantoprazole Sodium 40 MG Tablet PO ×2 (09:07→17:11)
[2022-09-28] MEDS: buPROPion (XL) 150 MG TABLET.XL PO (09:07)
[2022-09-28] MEDS: Citalopram 40 MG TABLET PO (09:07)
[2022-09-28] MEDS: Lisinopril 40 MG Tablet PO (09:07)
[2022-09-28] MEDS: Chlorthalidone 50 MG Tablet 25 MG PO (09:07)
[2022-09-28] MEDS: Enoxaparin 40 MG/0.4 ML Syringe SC ×2 (09:08→21:17)
[2022-09-28] MEDS: Minoxidil 10 MG Tablet PO (09:08)
[2022-09-28] MEDS: amLODIPine 10 MG Tablet PO (09:08)
[2022-09-28] MEDS: Insulin Glargine-YFGN 100 UNIT/ML Pen 30 UNIT SC ×2 (09:08→21:20)
[2022-09-28] MEDS: Gabapentin 800 MG Tablet PO ×2 (09:10→21:17)
[2022-09-28 11:21] LABS: Bedside Glucose 246 mg/dL (74-106)
--- NOTE | 2022-09-28 11:53 | CHAPLAIN ---
Type of Pastoral Visit ___ Initial Visit _x__ Follow-up Visit ___ On-call Visit ___ General Patient Visit ___ Spiritual Assessment ___ Family Conference ___ Bereavement ___ Rapid Response ___ Code Blue ___ Other (describe below) Pastoral Care Referral From _x__ Patient ___ Family ___ Nurse ___ Physician ___ Senior Education Specialist ___ Seed Specialist ___ Other (describe below) Sacrament/Intervention _x__ Active listening ___ Anointing ___ Latter Day ___ Bereavement ___ Communion ___ Charlee exploration ___ ___ Life review _x__ Prayer ___ Reconciliation ___ Sacrament of Sick _x__ Supportive presence ___ Wedding ___ Other (describe below) Pastoral Comments patient gives update on his plan of treatment and progress; pt admits having to talk to his yesterday for reassurance and with help in remaining calm; pt has been worrying about his family; pt states that this time has been good for reflecting on what is important and he has talked with about setting family priorities; pt welcomes the prayer and presence of this medical auditor; pt expresses appreciation for words that have been helpful to me
--- NOTE | 2022-09-28 13:46 | PCM.CONS.R ---
Assessment & Plan Assessment/Plan (1) Hypertensive emergency: PLAN: History of blood pressure onset when he was about 17. Poorly controlled. He has been on various combination of medications. No allergic reactions to any medications. Secondary work-up. We will send off a renin, aldosterone level. Treatment. Continue current medications. Add spironolactone. was not taking any medications due to financial issues. Discussed about smoking cessation. Has sleep apnea, uses CPAP already Discussed with Dr. Aragon HPI Consult Data Date of Consult: 09/28/22 HPI Narrative Reason for Consultation: Hypertension HPI Narrative: CHIDI ALVAREZ, is a 37 M who presents to the hospital with hypertensive emergency. Nephrology on consultation due to hypertension. He was initially diagnosed with hypertension when he was about 17 years of age, just out of high school. Has been on lisinopril, verapamil. Recently multiple medications have been added. Apparently had some personal issues and stopped taking all the medications. Came in with blood pressure value more than 200. He was on nifedipine drip. Has been off this morning. Currently denies any complaints. Coexisting diabetes, poorly controlled. [facility]. Most of his HbA1c values are above 9. He does have microalbuminuria. Renal function is relatively preserved. History of smoking, has cut down, not completely quit yet. Does have obstructive sleep apnea, uses CPAP regularly. Follows with sleep medicine at [facility] Family history. Significant family history on father side. Nobody had blood pressure onset in their teenage years but a lot of family members on father side had high blood pressure. He has 1 brother who does not have any blood pressure or kidney issues. Endorgan damage. No history of cerebrovascular events. Echocardiogram with no significant LVH. He does have microalbuminuria but that could be from diabetes as well. [facility] Medical History (Updated 09/27/22 @ 14:[address] Mila Aragon, DO) Abdominal panniculus, symptomatic Abdominal wall abscess Benign essential hypertension Cellulitis and abscess of other specified site Gastroesophageal reflux disease Hyperglycemia due to type 2 diabetes mellitus Hyperlipidemia Intertrigo Morbid obesity Open wound anterior abdominal wall Panniculitis Severe sepsis Smoker Type 2 diabetes mellitus Home Medications albuterol sulfate 90 mcg/actuation aerosol inhaler 2 puff inhalation Q4H PRN PRN Sob &/Or Wheezing 01/25/19 [History Last Taken 01/25/19 08:00] chlorthalidone 25 mg tablet 25 mg PO DAILY BLOOD PRESSURE 01/25/19 [History Last Taken 01/25/19 12:00] citalopram 40 mg tablet 40 mg PO DAILY DEPRESSION 01/25/19 [History Last Taken 01/25/19 12:00] esomeprazole magnesium 40 mg capsule,delayed release 40 mg PO BIDCM HEARTBURN 01/25/19 [History Last Taken 01/25/19 12:00] fluticasone propionate 50 mcg/actuation nasal spray,suspension 2 spry PO PRN PRN Allergies 01/25/19 [History Last Taken 01/24/19 22:00] lisinopril 40 mg tablet 40 mg PO DAILY BP 01/25/19 [History Last Taken 01/25/19 12:00] pravastatin 40 mg tablet 40 mg PO DAILY CHOLESTEROL 01/25/19 [History Last Taken 01/25/19 12:00] verapamil 240 mg tablet,extended release 480 mg PO QHS HEART 01/25/19 [History Last Taken 01/24/19 22:00] ibuprofen 600 mg tablet 600 mg PO 4X/DAY PRN Pain #1 TAB 01/28/19 [Rx Last Taken Unknown] atorvastatin 40 mg tablet 40 mg PO QHS 09/25/22 [History Last Taken Unknown] bupropion HCl 150 mg 24 hr tablet, extended release (Wellbutrin XL) 150 mg PO DAILY 09/25/22 [History Last Taken Unknown] gabapentin 800 mg tablet 800 mg PO BID 09/25/22 [History Last Taken Unknown] insulin glargine 100 unit/mL subcutaneous cartridge 25 unit subcut QHS 09/25/22 [History Last Taken Unknown] metformin 1,000 mg tablet 1,000 mg PO BID 09/25/22 [History Last Taken Unknown] Allergy/AdvReac Type Severity Reaction Status Date / Time No Known Allergies Allergy Verified 09/25/22 09:32 Family History Father Asthma Colon cancer Heart disease CAD (coronary artery disease) Hypertension Diabetes Grandfather Asthma Heart disease Diabetes Colon cancer Mother Thyroid disorder Diabetes Grandmother Asthma Colon cancer Diabetes Surgical History S/P tonsillectomy Social History (Updated 09/25/22 @ 14:[address] Mila Aragon DO) household members: spouse housing: house Smoking Status: Current every day smoker tobacco type: cigars per week: 70 alcohol intake: never substance use type: does not use ROS ROS Narrative Except above Physical Exam Narrative Alert awake oriented x 3 no obvious distress no pallor no icterus no JVD s1s2 no murmurs lungs clear abdomen soft no organomegaly no edema no cyanosis Lab / Micro Data Result Diagrams: 09/27/22 02:58 09/28/22 03:41 Labs: Laboratory Results - last 24 hr 09/27/22 16:12: POC Glucose 222 H 09/27/22 20:32: POC Glucose 204 H 09/28/22 03:41: Sodium 136, Potassium 3.5, Chloride 103, Carbon Dioxide 25.0, Anion Gap 8, BUN 12, Creatinine 0.98, Estim Creat Clear Calc 118.83, Est GFR (MDRD) Af Amer 109, Est GFR (MDRD) Non-Af 90, BUN/Creatinine Ratio 12.2, Glucose 215 H, Calcium 8.9 09/28/22 07:02: Cortisol 22.80 H 09/28/22 07:56: POC Glucose 198 H 09/28/22 10:58: POC Glucose 246 H Rhythm Strip Rhythm Strip: Sinus Tach Rate: 101 Ectopy: None
--- NOTE | 2022-09-28 15:18 | PCM.PN.HOSP ---
Subjective Subjective Patient states clinically he is feeling much better. This morning he was still requiring Cardene however late morning we are able to get him off of it. Nephrology was consulted today and they are making some medication adjustments trying to better control his blood pressure. Objective Data Objective Data Vital Signs: Vital Signs Temp Pulse Resp BP Pulse Ox O2 Del Method O2 Flow Rate 98.1 F 84 15 137/95 H 97 Room Air 2 09/28/22 12:00 09/28/22 13:47 09/28/22 13:00 09/28/22 13:47 09/28/22 13:00 09/28/22 13:00 09/28/22 08:10 FiO2 21 09/28/22 03:00 Oxygen Flow Rate (L/min) 2 Oxygen Delivery Method Room Air Weight: 192.4 kg Body Mass Index (BMI) 53.4 Intake & Output: Intake and Output for Last 24 Hours 09/26/22 09/27/22 09/28/22 23:59 23:59 23:59 Intake Total 2579.58 / 2679.58 1934.17 / 1984.17 1255.42 / 1255.42 Output Total 1800 / 1800 1999 Balance 779.58 / 879.58 -65.83 / -15.83 -744.58 / -744.58 Lab / Micro Data Result Diagrams: 09/27/22 02:58 09/28/22 03:41 Labs: Laboratory Results - last 24 hr 09/27/22 16:12: POC Glucose 222 H 09/27/22 20:32: POC Glucose 204 H 09/28/22 03:41: Sodium 136, Potassium 3.5, Chloride 103, Carbon Dioxide 25.0, Anion Gap 8, BUN 12, Creatinine 0.98, Estim Creat Clear Calc 118.83, Est GFR (MDRD) Af Amer 109, Est GFR (MDRD) Non-Af 90, BUN/Creatinine Ratio 12.2, Glucose 215 H, Calcium 8.9 09/28/22 07:02: Cortisol 22.80 H 09/28/22 07:56: POC Glucose 198 H 09/28/22 10:58: POC Glucose 246 H Radiography Diagnostic Testing: Radiology Impression Renal Artery Duplex 09/28/22 06:56 Interpretation Summary Right renal artery patent with normal velocities and no evidence of stenosis Left renal artery patent with normal velocities and no evidence of stenosis Right renal vein patent Left renal vein patent Right kidney normal in size Left kidney normal in size Ordering Physician: Mila Aragon Performed By: Teodoro Phillips RVT Rhythm Strip Rhythm Strip: Sinus Tach Rate: 101 Ectopy: None Physical Exam Const alert, oriented x3, no apparent distress and well nourished Constitutional Narrative: Morbidly obese, middle-aged, white male sitting up in bed watching television, appears comfortable and nontoxic General Appearance: cooperative HEENT normocephalic, head/scalp atraumatic, hearing grossly normal bilaterally and moist oral mucous membranes HEENT Narrative: Mallampati 4, no thrush Resp normal respiratory effort, no retractions, no use of accessory muscles and clear to auscultation bilaterally Resp Narrative: Diminished but suspect this is related to body habitus Auscultation: Negative for crackles, rhonchi or wheezes Cardio regular rate, regular rhythm, S1 normal heart sound, S2 normal heart sound, no murmurs, no rub, no gallops, no clicks and no JVD GI normal to inspection, nondistended, normoactive bowel sounds, soft to palpation and non-tender GI Narrative: Large protuberant abdomen with pannus Extremity Extremity Narrative: Trace bilateral lower extremity edema, 2+ pedal pulses, no cyanosis or clubbing Neuro oriented x3, moves all extremities and no focal motor deficits Neuro Narrative: Dysmetria has resolved Speech: speech normal Psych affect normal Psych Narrative: Very pleasant, appropriately interactive Assessment & Plan Assessment/Plan (1) Hypertensive emergency: (2) Cerebellar dysmetria: (3) Proteinuria: (4) Hyperglycemia due to type 2 diabetes mellitus: (5) Erythrocytosis: (6) Elevated troponin I level: PLAN: Plan Hypertensive emergency -Patient with blurred vision, headache, dysmetria-R, gait abnormality per report -Symptoms are now resolved -No other signs of endorgan damage at this time however patient does have mild proteinuria however creatinine is normal -Cardene was turned off late morning -Continue chlorthalidone 25 mg daily -Continue lisinopril 40 mg daily -Continue Coreg 25 mg p.o. twice daily(home verapamil was discontinued) -Continue hydralazine 100 mg 3 times daily -Continue minoxidil 10 mg daily -Aldactone 25 mg daily added by nephrology -Blood pressure goal is less than 130/80 -Blood pressure elevation and noncompliance is related to patient not being able to afford medication and not being able to get into his primary care physician for follow-up -Case management consulted for medication assistance--> abel with case management this morning -MRI was negative for any acute findings -TSH within normal limits -Cortisol is normal -Renal duplex obtained today and shows no evidence of renal artery stenosis bilaterally -Echocardiogram demonstrated an EF of 70% with a mildly dilated aortic root -Slight elevation in cardiac enzymes--> with echocardiogram I suspect this is likely related to his markedly elevated blood pressure -No further work-up at this time -Nephrology consulted-I discussed the case with Dr. Paredes and appreciate his input Troponin elevation -Echo without wall motion abnormality -Suspect this is related to his markedly elevated blood pressures on presentation -Patient without any chest pain Cerebellar dysmetria -MRI negative -Resolved Erythrocytosis -Resolved -Hemoglobin 14.8 Proteinuria -Suspect related to blood pressure and diabetes -Recommend outpatient follow-up with nephrology -Renal function normal Hyperglycemia with history of DM-2 -Patient states he has been compliant with his basal insulin--> 25 units at at bedtime -Increase Lantus to 30 units twice daily -Consider adding prandial insulin if blood sugars remain elevated -A1c was 9.8 indicating poor control -High-dose sliding scale -Accu-Cheks as ordered -Carb control/cardiac diet -Home metformin on hold -Recommend outpatient referral to endocrinology at discharge GERD -Continue PPI twice daily Hyperlipidemia -Continue atorvastatin Peripheral neuropathy secondary to DM-2 -Continue home gabapentin 800 mg p.o. twice daily Hypertension -See above Tobacco abuse -Recommend cessation -Patient admits to using smoking 10 cigars daily -Nicotine patch ordered Morbid obesity -BMI is 53.9 -Recommend weight loss -Complicates treatment, prognosis, outcomes DVT prophylaxis -Lovenox 40 mg SQ twice daily CODE STATUS -Full code Charges/Coding Visit Charges Inpatient E&M: 45020 Subs Hosp L2
[2022-09-28 17:00] LABS: Bedside Glucose 215 mg/dL (74-106)
[2022-09-28] MEDS: Atorvastatin Calcium 40 MG Tablet PO (21:18)
--- NOTE | 2022-09-28 23:00 | CPS ---
Pt stated he is unable to tolerate CPAP unless it has humidification. Tech unable to locate all equipment for set up.
[2022-09-29] VITALS (10 sets, daily range): BP systolic 136–154; BP diastolic 76–95; PULSE 78–94; RESP 15–20; TEMP 35.4–36.1; O2SAT 97–100
[2022-09-29 04:34] LABS: Absolute Lymphocyte Count 2.84 X10^3/uL (0.83-4.51); Absolute Neutrophil Count 5.8 X10^3/uL (2.0-7.7); Basophil# 0.09 X10^3/uL; Basophil% 0.9 % (0-1); Eosinophil# 0.26 X10^3/uL; Eosinophils% 2.6 % (0-5); Hematocrit 44.5 % (40-54); Lymphocyte # 2.84 X10^3/ul (0.83-4.51); Lymphocyte % 28.9 % (19-41); Mean Corp Hgb Conc 33.7 g/dL (32-36); Mean Platelet Vol. 10.4 fl (6.2-12.0); Monocyte# 0.75 X10^3/uL; Monocyte% 7.6 % (0-10); NRBC Flagged by Analyzer 0 % (0-5); Neutrophil # 5.83 X10^3/uL (2.7-7.7); Neutrophil % 59.4 % (47-70); Platelet Count 275 K/mm3 (150-450); RBC Distribution Width CV 12.6 % (11.6-14.6); RBC Distribution Width SD 38.3 fl (35.1-43.9); Red Blood Count 5.36 M/mm3 (4.6-6.2); White Blood Count 9.8 K/mm3 (4.4-11.0)
[2022-09-29 04:48] LABS: Anion Gap 7 (5-15); BUN 13 mg/dL (7-18); BUN/Creat Ratio 12.5 RATIO (10-20); Calcium,Total 9.1 mg/dL (8.5-10.1); Chloride 102 mmol/L (98-107); Creatinine, Serum 1.04 mg/dL (0.70-1.30); EST Glomerular Filtration Rate 85 mL/min (>60); Est Glom Filt Rate - Afr Amer 103 mL/min (>60); Estimated Creatinine Clearance 111.97 ml/min; Glucose 177 mg/dL (74-106); Potassium 3.5 mmol/L (3.5-5.1); Sodium Level 135 mmol/L (136-145)
[2022-09-29] MEDS: hydrALAZINE 50 MG Tablet 100 MG PO ×2 (06:13→14:11)
[2022-09-29] MEDS: Spironolactone 25 MG Tablet PO (06:13)
--- NOTE | 2022-09-29 09:51 | CASEMGMT ---
VENUS MENDEZ NOTE: Pt being discharged home today. VENUS MENDEZ to room. Pt states he has not scheduled a f/u appt with his PCP yet, as he was awaiting confirmation of when he will be discharged. He states he plans to call today to schedule an appt. Pt also states he has reached out to his insurance co re: replacement of his glucometer, but he has not heard back from them yet. VENUS MENDEZ made him aware of OTC [employer] brand @ [employer] that is approx $20 for glucometer and testing supplies. Pt states this is affordable and states may pick this up, if he does not hear back from his insurance co. re: replacement. Pt denies having other discharge planning needs or concerns. Dr Michele aware pt needs rx's for all of his medications (including insulin) and they are to be sent to [facility] pharmacy and will be covered by [facility] Rx assist program. Kyle RUIZ RN, CM
--- NOTE | 2022-09-29 09:55 | PN.RENAL_ITS ---
Documented by User: IONA Samuels 09/29/22 10:00 Subjective Subjective Patient is sitting up in bed. Denies any complaints. Denies any headache or vision changes. Objective Data Objective Data Vital Signs: Vital Signs Temp Pulse Resp BP Pulse Ox O2 Del Method O2 Flow Rate 97 F L 86 15 152/88 H 97 Room Air 2 09/29/22 05:00 09/29/22 06:13 09/29/22 05:00 09/29/22 06:13 09/29/22 07:23 09/29/22 07:23 09/29/22 04:00 FiO2 21 09/28/22 03:00 Oxygen Flow Rate (L/min) 2 Oxygen Delivery Method Room Air Weight: 191.3 kg Body Mass Index (BMI) 53.4 Intake & Output: Intake and Output for Last 24 Hours 09/27/22 09/28/22 09/29/22 23:59 23:59 23:59 Intake Total 1934.17 / 1983.17 1255.42 / 1255.42 Output Total 1999 Balance -65.83 / -15.83 -744.58 / -744.58 Lab / Micro Data Result Diagrams: 09/29/22 04:27 09/29/22 04:27 Labs: Laboratory Results - last 24 hr 09/28/22 10:58: POC Glucose 246 H 09/28/22 16:43: POC Glucose 215 H 09/29/22 04:27: WBC 9.8, RBC 5.36, Hgb 15.0, Hct 44.5, MCV 83.0, MCH 28.0, MCHC 33.7, RDW Std Deviation 38.3, RDW Coeff of Debi 12.6, Plt Count 275, MPV 10.4, Immature Gran % (Auto) 0.600, Neut % (Auto) 59.4, Lymph % (Auto) 28.9, [place] % (Auto) 7.6, Eos % (Auto) 2.6, Baso % (Auto) 0.9, Absolute Neuts (auto) 5.8, Absolute Lymphs (auto) 2.84, Nucleated RBC % 0 09/29/22 04:27: Sodium 135 L, Potassium 3.5, Chloride 102, Carbon Dioxide 26.0, Anion Gap 7, BUN 13, Creatinine 1.04, Estim Creat Clear Calc 111.97, Est GFR (MDRD) Af Amer 103, Est GFR (MDRD) Non-Af 85, BUN/Creatinine Ratio 12.5, Glucose 177 H, Calcium 9.1 Radiography Diagnostic Testing: Radiology Impression Renal Artery Duplex 09/28/22 06:56 Interpretation Summary Right renal artery patent with normal velocities and no evidence of stenosis Left renal artery patent with normal velocities and no evidence of stenosis Right renal vein patent Left renal vein patent Right kidney normal in size Left kidney normal in size Ordering Physician: Mila Aragon Performed By: Teodoro Phillips RVT Rhythm Strip Rhythm Strip: Sinus Tach Rate: 101 Ectopy: None Physical Exam Narrative Alert awake oriented x 3 no obvious distress no JVD s1s2 no murmurs lungs clear abdomen soft no edema Assessment & Plan Assessment/Plan (1) Hypertensive emergency: PLAN: History of blood pressure onset when he was about 17. Poorly controlled. He has been on various combination of medications. No allergic reactions to any medications. Secondary work-up: renin, aldosterone levels sent and pending. Blood pressures improved and off nicardipine drip. Continue current medications: Chlorthalidone 25 mg daily, lisinopril 40 mg daily, hydralazine 100 mg 3 times daily, carvedilol 25 mg twice daily, amlodipine 10 mg daily, minoxidil 10 mg daily. Added spironolactone 25 mg. Patient states he was not taking any medications due to financial issues. Discussed about smoking cessation, lifestyle modifications such as weight loss, low-sodium diet, exercise. Also reviewed importance of good blood pressure con trol and renal function. Has sleep apnea, uses CPAP already Possible discharge today. Will arrange for hospital follow-up Discussed with Dr. Michele Documented by User: Dr. Mya Paredes MD 09/29/22 14:26 Objective Data Lab / Micro Data Result Diagrams: 09/29/22 04:27 09/29/22 04:27 Assessment & Plan Assessment/Plan (1) Hypertensive emergency: PLAN: History of blood pressure onset when he was about 17. Poorly controlled. He has been on various combination of medications. No allergic reactions to any medications. Secondary work-up: renin, aldosterone levels sent and pending. Blood pressures improved and off nicardipine drip. Continue current medications: Chlorthalidone 25 mg daily, lisinopril 40 mg daily, hydralazine 100 mg 3 times daily, carvedilol 25 mg twice daily, amlodipine 10 mg daily, minoxidil 10 mg daily. Added spironolactone 25 mg. Patient states he was not taking any medications due to financial issues. Discussed about smoking cessation, lifestyle modifications such as weight loss, low-sodium diet, exercise. Also reviewed importance of good blood pressure control and renal function. Has sleep apnea, uses CPAP already Possible discharge today. Will arrange for hospital follow-up Discussed with Dr. Michele Addendum Renal dopplers negative renin karolyn pending, follow as outpatient will arrange follow up after dc
[2022-09-29] MEDS: Minoxidil 10 MG Tablet PO (10:03)
[2022-09-29] MEDS: amLODIPine 10 MG Tablet PO (10:03)
[2022-09-29] MEDS: Chlorthalidone 50 MG Tablet 25 MG PO (10:03)
[2022-09-29] MEDS: Citalopram 40 MG TABLET PO (10:04)
[2022-09-29] MEDS: Pantoprazole Sodium 40 MG Tablet PO (10:04)
[2022-09-29] MEDS: Carvedilol 25 MG Tablet PO (10:04)
[2022-09-29] MEDS: Insulin Glargine-YFGN 100 UNIT/ML Pen 30 UNIT SC (10:05)
[2022-09-29] MEDS: buPROPion (XL) 150 MG TABLET.XL PO (10:06)
[2022-09-29] MEDS: Lisinopril 40 MG Tablet PO (10:09)
[2022-09-29] MEDS: Gabapentin 800 MG Tablet PO (10:09)
[2022-09-29] MEDS: Insulin Lispro 100 UNIT/ML INSULN.PEN SC (10:17)
[2022-09-29 10:41] LABS: Bedside Glucose 274 mg/dL (74-106)
--- NOTE | 2022-09-29 11:16 | DCINST_ITS ---
Discharge Instructions Diet Discharge Diet: 1800 Calorie Control Diet Activity Discharge Activity: Return to Normal Activity Weight Bearing Status: Full weight bearing Follow Up Care Test Results: Test results from this visit will be discussed in further detail at your follow- up appointment, if applicable. Discharge Plan Admission Admit Date/Time: 09/25/22 11:45 Primary Reason for Your Visit: HYPERTENSIVE EMERGENCY Attending Provider: Reji Michele Primary Care Provider: Pablo Lloyd Consulting Providers: Mya Paredes ; Mila Aragon Discharge Orders/Prescriptions Prescriptions: New acetaminophen [Tylenol] 325 mg Tablet 650 mg PO Q6H PRN PRN (Reason: Pain 1-10 Or Fever>100.7) Qty: 0 0RF nicotine 21 mg/24 hr Patch 24 Hour 21 mg transdermal DAILY Qty: 28 0RF carvedilol 25 mg Tablet 25 mg PO BID Qty: 60 0RF spironolactone 25 mg Tablet 25 mg PO DAILY Qty: 30 0RF minoxidil 10 mg Tablet 10 mg PO DAILY Qty: 30 0RF lisinopril 40 mg Tablet 40 mg PO BID Qty: 60 0RF hydralazine 100 mg tablet 100 mg PO TID Qty: 90 0RF amlodipine 10 mg Tablet 10 mg PO DAILY Qty: 30 0RF hydralazine 50 mg Tablet 100 mg PO TID Qty: 180 0RF lisinopril 40 mg tablet 40 mg PO DAILY Qty: 30 0RF Continued citalopram 40 MG tablet 40 mg PO DAILY Label Comments: TK 1 T PO QD chlorthalidone 25 MG tablet 25 mg PO DAILY esomeprazole magnesium 40 MG capsule,delayed release(DR/EC) 40 mg PO BIDCM Label Comments: TK 1 C PO QD fluticasone propionate 1 SPRAY spray,suspension 2 spry PO PRN PRN (Reason: Allergies) Label Comments: USE 2 SPRAYS IEN QHS pravastatin 40 MG tablet 40 mg PO DAILY Label Comments: TK 1 T PO ONCE D albuterol sulfate 1 INHALER inhaler 2 puff inhalation Q4H PRN PRN (Reason: Sob &/Or Wheezing) insulin glargine 100 unit/mL Cartridge 25 unit SUBCUT QHS gabapentin 800 mg Tablet 800 mg PO BID atorvastatin 40 mg Tablet 40 mg PO QHS metformin 1,000 mg Tablet 1,000 mg PO BID bupropion HCl [Wellbutrin XL] 150 mg Tablet Extended Release 24 Hr 150 mg PO DAILY Discontinued lisinopril 40 MG tablet 40 mg PO DAILY verapamil 240 MG tablet extended release 480 mg PO QHS ibuprofen 600 MG tablet 600 mg PO 4X/DAY PRN (Reason: Pain) Qty: 1 0RF Referrals / Follow Up: Mya Paredes MD [Med Staff - Consulting] - See Referral Note ( SCHEDULED-OFFICE WILL CALL) Storm Sorto MD [Med Staff - Courtesy Staff] - Within 1 Month (diabetes mgt) Pablo Lloyd MD [Primary Care Provider] - In 1 Week Disposition Disposition (needs filled in before D/C Order can be placed): Home, Self Care
--- NOTE | 2022-09-29 11:44 | PCM.DC.SUM ---
Providers Date of Admission: 09/25/22 Date of Discharge: 09/29/22 Primary Care Physician: Dr. Pablo Lloyd MD Consultations 09/28/22 06:53 Consult: Nephrology Routine Consulting Provider: Mya Paredes Reason for Consult: Resistant HTN EMERGENT Consult: No MD Notified: Yes Date Notified: 09/28/22 Time Notified: 06:53 Method of Notification: Answering Service Reason For Visit: HTN EMERGENCY Diagnosis Discharge Diagnosis (1) Hypertensive emergency: Status: Resolved Code(s): I16.1 - Hypertensive emergency Plan 1. Hypertensive emergency #2 troponin [id number] was ruled out #3 type 2 diabetes under poor control #4 essential hypertension-noncompliant with medical regimen #5 morbid obesity #6 peripheral neuropathy secondary to type 2 diabetes #7 hyperlipidemia #8 obstructive sleep apnea #9 diabetic proteinuria Medications at Discharge Home Medications chlorthalidone 25 mg tablet 25 mg PO DAILY BLOOD PRESSURE 01/25/19 citalopram 40 mg tablet 40 mg PO DAILY DEPRESSION 01/25/19 esomeprazole magnesium 40 mg capsule,delayed release 40 mg PO BIDCM HEARTBURN 01/25/19 atorvastatin 40 mg tablet 40 mg PO QHS 09/25/22 bupropion HCl 150 mg 24 hr tablet, extended release (Wellbutrin XL) 150 mg PO DAILY 09/25/22 gabapentin 800 mg tablet 800 mg PO BID 09/25/22 insulin glargine 100 unit/mL subcutaneous cartridge 25 unit subcut QHS 09/25/22 metformin 1,000 mg tablet 1,000 mg PO BID 09/25/22 acetaminophen 325 mg tablet (Tylenol) 650 mg PO Q6H PRN PRN Pain 1-10 Or Fever>100.7 #0 tabs 09/29/22 amlodipine 10 mg tablet 10 mg PO DAILY #30 tabs 09/29/22 carvedilol 25 mg tablet 25 mg PO BID #60 tabs 09/29/22 hydralazine 100 mg tablet 100 mg PO TID #90 tabs 09/29/22 hydralazine 50 mg tablet 100 mg PO TID #180 tabs 09/29/22 lisinopril 40 mg tablet 40 mg PO BID #60 tabs 09/29/22 lisinopril 40 mg tablet 40 mg PO DAILY #30 tabs 09/29/22 minoxidil 10 mg tablet 10 mg PO DAILY #30 tabs 09/29/22 nicotine 21 mg/24 hr daily transdermal patch 21 mg transdermal DAILY #28 ea 09/29/22 spironolactone 25 mg tablet 25 mg PO DAILY #30 tabs 09/29/22 Hospital Course Operations None Procedures 2-D Echocardiogram Summary of Care Provided Minutes Spent on Discharge: 31 Hospital Course: This 37-year-old white male was seen in the emergency room at [facility] with complaints of blurred vision, difficulty walking at times, and elevated blood pressure. Patient had not been compliant with his blood pressure medications, he had not seen his physician in approximately a year and his medications were not being refilled. Vital signs in the emergency room revealed patient's blood pressure to be elevated at 225/149, pulse ox on room air was adequate, heart rate was 105, labs showed a mild leukocytosis with a white count of 11.7, blood glucose was 316. Urinalysis showed proteinuria and a small amount of occult blood, EKG showed normal sinus rhythm with some flattening of his T waves in the lateral leads but no ischemic changes were noted. Patient was started on a Cardene drip in the ER with some drop in his blood pressure, he was admitted to the ICU, he was seen in consultation by nephrology, his blood pressure medications were readjusted and his blood sugars were monitored. On 09/29/2022, patient was seen and examined: On examination he appeared in good health and spirits. Vital signs as documented. Skin warm and dry and without overt rashes. Neck without JVD, neck was supple, trachea midline, thyroid was normal. Lungs clear bilaterally, normal air movement was noted. Heart exam notable for regular rhythm, normal sounds and absence of murmurs, rubs or gallops. Abdomen unremarkable and without evidence of organomegaly, masses, or abdominal aortic enlargement. Bowel sounds are present, abdomen is not distended. Extremities nonedematous, no cyanosis was noted, no clubbing was noted. Neuro: Cranial nerves II through XII are grossly intact, no focal motor deficits were noted, sensation to light touch and pinprick intact, motor exam 5/5 throughout. Psych: Patient is alert and oriented x3, he does not appear anxious or depressed, he does not appear agitated. Patient was felt to be stable for discharge home on 09/29/2022. Weight / BMI Weight Weight: 191.3 kg Body Mass Index (BMI) 53.4 ABG / Lab / Microbiology Data Result Diagrams: 09/29/22 04:27 09/29/22 04:27 Laboratory: Laboratory Results - last 24 hr 09/28/22 16:43: POC Glucose 215 H 09/29/22 04:27: WBC 9.8, RBC 5.36, Hgb 15.0, Hct 44.5, MCV 83.0, MCH 28.0, MCHC 33.7, RDW Std Deviation 38.3, RDW Coeff of Debi 12.6, Plt Count 275, MPV 10.4, Immature Gran % (Auto) 0.600, Neut % (Auto) 59.4, Lymph % (Auto) 28.9, [place] % (Auto) 7.6, Eos % (Auto) 2.6, Baso % (Auto) 0.9, Absolute Neuts (auto) 5.8, Absolute Lymphs (auto) 2.84, Nucleated RBC % 0 09/29/22 04:27: Sodium 135 L, Potassium 3.5, Chloride 102, Carbon Dioxide 26.0, Anion Gap 7, BUN 13, Creatinine 1.04, Estim Creat Clear Calc 111.97, Est GFR (MDRD) Af Amer 103, Est GFR (MDRD) Non-Af 85, BUN/Creatinine Ratio 12.5, Glucose 177 H, Calcium 9.1 09/29/22 10:16: POC Glucose 274 H Radiography Diagnostic Testing: Radiology Impression Renal Artery Duplex 09/28/22 06:56 Interpretation Summary Right renal artery patent with normal velocities and no evidence of stenosis Left renal artery patent with normal velocities and no evidence of stenosis Right renal vein patent Left renal vein patent Right kidney normal in size Left kidney normal in size Ordering Physician: Mila Aragon Performed By: Teodoro Phillips RVT D/C Instructions Discharge Diet: 1800 Calorie Control Diet Weight Bearing Status: Full weight bearing Meaningful Use Info Meaningful Use Diagnoses (Choose all that apply): None applicable Discharge Plan Admission Admit Date/Time: 09/25/22 11:45 Primary Reason for Your Visit: HYPERTENSIVE EMERGENCY Attending Provider: Reij Michele Primary Care Provider: Pablo Lloyd Consulting Providers: Mya Paredes ; Mila Aragon Discharge Orders/Prescriptions Prescriptions: New acetaminophen [Tylenol] 325 mg Tablet 650 mg PO Q6H PRN PRN (Reason: Pain 1-10 Or Fever>100.7) Qty: 0 0RF nicotine 21 mg/24 hr Patch 24 Hour 21 mg transdermal DAILY Qty: 28 0RF carvedilol 25 mg Tablet 25 mg PO BID Qty: 60 0RF spironolactone 25 mg Tablet 25 mg PO DAILY Qty: 30 0RF minoxidil 10 mg Tablet 10 mg PO DAILY Qty: 30 0RF lisinopril 40 mg Tablet 40 mg PO BID Qty: 60 0RF hydralazine 100 mg tablet 100 mg PO TID Qty: 90 0RF amlodipine 10 mg Tablet 10 mg PO DAILY Qty: 30 0RF hydralazine 50 mg Tablet 100 mg PO TID Qty: 180 0RF lisinopril 40 mg tablet 40 mg PO DAILY Qty: 30 0RF Continued citalopram 40 MG tablet 40 mg PO DAILY Label Comments: TK 1 T PO QD chlorthalidone 25 MG tablet 25 mg PO DAILY esomeprazole magnesium 40 MG capsule,delayed release(DR/EC) 40 mg PO BIDCM Label Comments: TK 1 C PO QD insulin glargine 100 unit/mL Cartridge 25 unit SUBCUT QHS gabapentin 800 mg Tablet 800 mg PO BID atorvastatin 40 mg Tablet 40 mg PO QHS metformin 1,000 mg Tablet 1,000 mg PO BID bupropion HCl [Wellbutrin XL] 150 mg Tablet Extended Release 24 Hr 150 mg PO DAILY Discontinued lisinopril 40 MG tablet 40 mg PO DAILY fluticasone propionate 1 SPRAY spray,suspension 2 spry PO PRN PRN (Reason: Allergies) Label Comments: USE 2 SPRAYS IEN QHS pravastatin 40 MG tablet 40 mg PO DAILY Label Comments: TK 1 T PO ONCE D verapamil 240 MG tablet extended release 480 mg PO QHS albuterol sulfate 1 INHALER inhaler 2 puff inhalation Q4H PRN PRN (Reason: Sob &/Or Wheezing) ibuprofen 600 MG tablet 600 mg PO 4X/DAY PRN (Reason: Pain) Qty: 1 0RF Referrals / Follow Up: Mya Paredes MD [Med Staff - Consulting] - See Referral Note ( SCHEDULED-OFFICE WILL CALL) Storm Sorto MD [Med Staff - Courtesy Staff] - Within 1 Month (diabetes mgt) Pablo Lloyd MD [Primary Care Provider] - In 1 Week Disposition Disposition (needs filled in before D/C Order can be placed): Home, Self Care Charges/Coding Visit Charges Inpatient E&M: 23404 Disch Hosp >30min
--- NOTE | 2022-09-29 12:31 | CASEMGMT ---
Addendum entered by Alesha Aguirre 09/29/22 13:02: Social Work LUCIANO communicated with Eliane Beltre, sales program manager, the situation w/pt. She gave the okay for pt to utilize the hospital assist program for pt for all of his prescriptions. LUCIANO communicated this to Alvarez in the pharmacy. The physician is sending more scripts to the pharmacy for pt at discharge. PJ Perez Original Note: Social Work LUCIANO tubed down the medication assistance form to the retail pharmacy as pt cannot afford his medications, even through his insurance. LUCIANO spoke w/pharmacy, cost of copays, is $54, pt cannot afford it. Hospital assistance will be used, LUCIANO explained to pt he can use it only one time per year. Pt saying he needs all of his medications, not just the new ones. RN reaching out to physician. PJ Perez
[2022-10-06 13:08] LABS: Aldosterone, Serum 13.9 ng/dL (0.0-30.0); Renin, Plasma 2.449 ng/mL/hr (0.167-5.380)
[2022-10-06 17:21] LABS: ALDOSTERONE/RENIN RATIO 5.7 (0.0-30.0)
== END 2022-09-29 14:27 | disposition home or self-care (01) | DRG 305 ==
LOC: ED 11:20 → ICU 12:30
PROVIDERS: Internal Medicine Nephrology; Admitting Provider Internal Medicine; Emergency Provider Emergency Medicine; PCP Internal Medicine; Visit Provider Internal Medicine
DX: I16.1 Hypertensive emergency (principal); Z68.43 Body mass index [BMI] 50.0-59.9, adult; E11.42 Type 2 diabetes mellitus with diabetic polyneuropathy; E11.65 Type 2 diabetes mellitus with hyperglycemia; E66.01 Morbid (severe) obesity due to excess calories; I77.819 Aortic ectasia, unspecified site; E78.5 Hyperlipidemia, unspecified; I10 Essential (primary) hypertension; K21.9 Gastro-esophageal reflux disease without esophagitis; F17.200 Nicotine dependence, unspecified, uncomplicated; G47.33 Obstructive sleep apnea (adult) (pediatric); Z79.84 Long term (current) use of oral hypoglycemic drugs; Z82.5 Family history of asthma and other chronic lower respiratory diseases; Z80.0 Family history of malignant neoplasm of digestive organs; R27.8 Other lack of coordination; R77.8 Other specified abnormalities of plasma proteins; R80.8 Other proteinuria; Z91.14 Patient's other noncompliance with medication regimen
CPT/HCPCS: 70450; 70551; 80048; 80053; 81001; 82088; 82533; 82962; 83036; 83735; 84100; 84244; 84443; 84484; 85025; 85610; 85730; 93005; 93306; 93975; 94660; 97161; 97165; 97803; 99284; J7030; J7050; Q9957; 90686; A4216; C8929; J2405

== ENCOUNTER 2023-05-04 19:36 | Emergency (ER) | payer OTHER, SELFPAY ==
[2023-05-04 19:37] VITALS: BP 144/94; PULSE 85; RESP 18; TEMP 35.8; O2SAT 99
[2023-05-04 20:01] LABS: Bedside Glucose 183 mg/dL (74-106)
[2023-05-04 21:50] LABS: Mucous, Urine 0 SEEN /hpf (<or=2+)
[2023-05-04 21:53] LABS: Color, Urine Yellow (Yellow); Glucose, Dipstick Normal (Normal); Ketone-Dipstick 5 mg/dl (Negative); Leukocyte Esterase-Dipstick 100 /ul (Negative); Nitrite-Dipstick Positive (Negative); Occult Blood-Urine 10 /ul (Negative); Protein-Dipstick 30 mg/dl (Negative); Urine Clarity Clear (Clear); Urine Urobilinogen 4 mg/dl (Normal)
[2023-05-04 21:55] LABS: Absolute Lymphocyte Count 1.78 X10^3/uL (0.83-4.51); Absolute Neutrophil Count 10.4 X10^3/uL (2.0-7.7); Basophil# 0.09 X10^3/uL; Basophil% 0.7 % (0-1); Eosinophil# 0.25 X10^3/uL; Eosinophils% 1.8 % (0-5); Hematocrit 47.9 % (40-54); Lymphocyte # 1.78 X10^3/ul (0.83-4.51); Mean Corp Hgb Conc 33.4 g/dL (32-36); Mean Corpuscular Hgb 27.6 pg (27.0-32.0); Mean Corpuscular Volume 82.7 fL (80-94); Mean Platelet Vol. 10.6 fl (6.2-12.0); Monocyte# 1.06 X10^3/uL; Monocyte% 7.8 % (0-10); NRBC Flagged by Analyzer 0 % (0-5); Neutrophil % 76.1 % (47-70); Platelet Count 334 K/mm3 (150-450); Red Blood Count 5.79 M/mm3 (4.6-6.2); White Blood Count 13.7 K/mm3 (4.4-11.0)
[2023-05-04 21:56] LABS: Urine Bilirubin Dipstick 3 mg/dL (Negative)
[2023-05-04 21:59] LABS: Red Blood Cells-Urine 0-5 SEEN /hpf (0-5); Squamous Epithelial Cells - UA 0-5 SEEN /hpf (0-5); White Blood Cells 0-5 SEEN /hpf (0-5)
[2023-05-04 22:00] LABS: Bacteria 1+ /hpf (None Seen)
[2023-05-04] MEDS: 0.9% Normal Saline 1,000 ML 999 ML IV ×2 (22:00→22:34)
[2023-05-04 22:16] VITALS: BP 127/73; PULSE 86; PULSE 87; RESP 21; RESP 22; TEMP 36.6; O2SAT 100; O2SAT 97; BMI 56.9
[2023-05-04 22:20] LABS: Anion Gap 10 (5-15); BUN 22 mg/dL (7-18); BUN/Creat Ratio 11.3 RATIO (10-20); Calcium,Total 9.6 mg/dL (8.5-10.1); Chloride 96 mmol/L (98-107); Creatinine, Serum 1.95 mg/dL (0.70-1.30); EST Glomerular Filtration Rate 41 mL/min (>60); Est Glom Filt Rate - Afr Amer 50 mL/min (>60); Glucose 198 mg/dL (74-106); Potassium 3.7 mmol/L (3.5-5.1); Sodium Level 131 mmol/L (136-145)
--- NOTE | 2023-05-04 22:26 | CT_ITS ---
STUDY: CT BRAIN WITHOUT CONTRAST REASON FOR EXAM: Male, 38 years old. severe vertigo RADIATION DOSAGE (If Supplied By Facility): CTDIvol = ( 44.99 ) mGy, DLP = ( 931.09 ) mGycm TECHNIQUE: Transaxial CT imaging of the brain was performed without administration of intravenous contrast material. Individualized dose optimization techniques were used for this CT. COMPARISON: No relevant priors. FINDINGS: Normal soft tissue structures. Normal calvarium. Normal size ventricles and extra-axial spaces for the patient''s age. Normal white matter tracts of the cerebral hemispheres. Normal basal ganglia and thalami. Normal brainstem. Normal cerebellum. There is no intracranial hemorrhage. There are no findings of an acute ischemic infarction. Large mucous retention cyst in the left maxillary sinus consistent with chronic sinusitis. CT/Brain/Head without Contrast IMPRESSION: Normal unenhanced CT scan of the brain. Electronically Signed: Richi Xie MD at 23:16 EDT ,
--- NOTE | 2023-05-04 22:29 | EDS_ITS ---
HPI History of Present Illness Chief Complaint: Nausea/Vomiting Informant: patient and family Onset/Context/Timing Onset: Weeks (2+) Context: Sudden Onset Timing: Intermittent Quality: spinning/movement Location: head Current Severity: Severe Maximum Severity: Severe Worsened by: certain movements/position changes Relieved by: nothing Associated Symptoms Associated Symptoms: n/v, constipation Narrative Narrative: Patient has been having intermittent vertigo for the past 2 weeks, associate with nausea and vomiting, he has been having some intermittent abdominal crampin g that feels more like muscle soreness from all the vomiting, he has been having trouble keeping things down, this is first time he has been to the emergency department for this but he saw his PCP and got a prescription for some Zofran which has not been helping at all, he states he has also been constipated, has had times where he feels like he needs to have a bowel movement but is unable. He is keeping down very little food. He states there is no time when he is vomiting that he is not vertiginous. He has not had vertigo like this in the past. He denies any earache, tinnitus, hearing disturbance, diplopia but he has had some blurry blurry vision at times when he is vertiginous. Position changes seem to trigger the vertiginous symptoms, but he cannot detect a definite pattern. He is concerned about his inability to keep things down because he is a diabetic. He has no history of any abdominal surgeries in the past. [facility] Medical History (Updated 05/05/23 @ 01:[address] Lee Hoffman MD) Abdominal panniculus, symptomatic Abdominal wall abscess Benign essential hypertension Cellulitis and abscess of other specified site Gastroesophageal reflux disease Hyperglycemia due to type 2 diabetes mellitus Hyperlipidemia Intertrigo Morbid obesity Open wound anterior abdominal wall Panniculitis Severe sepsis Smoker Type 2 diabetes mellitus Home Medications chlorthalidone 25 mg tablet 25 mg PO DAILY BLOOD PRESSURE 01/25/19 [History Last Taken 01/25/19 12:00] citalopram 40 mg tablet 40 mg PO DAILY DEPRESSION 01/25/19 [History Last Taken 01/25/19 12:00] esomeprazole magnesium 40 mg capsule,delayed release 40 mg PO BIDCM HEARTBURN 01/25/19 [History Last Taken 01/25/19 12:00] atorvastatin 40 mg tablet 40 mg PO QHS 09/25/22 [History Last Taken Unknown] bupropion HCl 150 mg 24 hr tablet, extended release (Wellbutrin XL) 150 mg PO DAILY 09/25/22 [History Last Taken Unknown] gabapentin 800 mg tablet 800 mg PO BID 09/25/22 [History Last Taken Unknown] insulin glargine 100 unit/mL subcutaneous cartridge 25 unit subcut QHS 09/25/22 [History Last Taken Unknown] metformin 1,000 mg tablet 1,000 mg PO BID 09/25/22 [History Last Taken Unknown] acetaminophen 325 mg tablet (Tylenol) 650 mg (2 x 325 mg) PO Q6H PRN PRN Pain 1- 10 Or Fever>100.7 #0 tabs 09/29/22 [Rx Last Taken Unknown] amlodipine 10 mg tablet 10 mg PO DAILY #30 tabs 09/29/22 [Rx Last Taken Unknown] carvedilol 25 mg tablet 25 mg PO BID #60 tabs 09/29/22 [Rx Last Taken Unknown] hydralazine 100 mg tablet 100 mg PO TID #90 tabs 09/29/22 [Rx Last Taken Unknown] hydralazine 50 mg tablet 100 mg (2 x 50 mg) PO TID #180 tabs 09/29/22 [Rx Last Taken Unknown] lisinopril 40 mg tablet 40 mg PO BID #60 tabs 09/29/22 [Rx Last Taken Unknown] lisinopril 40 mg tablet 40 mg PO DAILY #30 tabs 09/29/22 [Rx Last Taken Unknown] minoxidil 10 mg tablet 10 mg PO DAILY #30 tabs 09/29/22 [Rx Last Taken Unknown] nicotine 21 mg/24 hr daily transdermal patch 21 mg transdermal DAILY #28 ea 09/29/22 [Rx Last Taken Unknown] spironolactone 25 mg tablet 25 mg PO DAILY #30 tabs 09/29/22 [Rx Last Taken Unkn own] meclizine 25 mg tablet 25 mg PO Q8H PRN PRN Dizziness #20 tabs 05/05/23 [Rx Last Taken Unknown] metoclopramide HCl 10 mg tablet 10 mg PO Q6H PRN nausea and vomiting #14 tabs 05/05/23 [Rx Last Taken Unknown] Allergy/AdvReac Type Severity Reaction Status Date / Time No Known Allergies Allergy Verified 05/04/23 19:37 Family History Father Asthma Colon cancer Heart disease CAD (coronary artery disease) Hypertension Diabetes Grandfather Asthma Heart disease Diabetes Colon cancer Mother Thyroid disorder Diabetes Grandmother Asthma Colon cancer Diabetes Surgical History S/P tonsillectomy Social History household members: spouse housing: house Smoking Status: Current some day smoker tobacco type: cigars per week: 70 alcohol intake: never substance use type: does not use ROS ROS ED Constitutional Constitutional ED: Reports malaise; Denies body ache(s), chills or fever(s) Eyes Eyes: Reports blurry vision bilateral (Intermittent, when vertiginous); Denies diplopia ENT ENT ED: Reports as per HPI, disequillibrium, dizziness and vertigo; Denies ear discharge, ear pain, epistaxis, headache(s), nasal congestion, neck pain, rhinorrhea, sore throat or tinnitus Cardiovascular Cardiovascular: Denies chest pain or palpitations Respiratory/Chest Respiratory/Chest: Denies cough or dyspnea Gastrointestinal Gastrointestinal: Reports as per HPI, abdominal pain, constipation, nausea and vomiting; Denies diarrhea or melena Genitourinary Genitourinary ED: Denies dysuria or hematuria Musculoskeletal Musculoskeletal: Denies back pain or neck pain Integumentary Denies abscess or rash Neurologic Neurologic: Denies headache(s), paresthesias or weakness Psychiatric Psychiatric: Denies anxiety or suicidal thoughts EXAM Physical Exam Const Vital Signs: 05/04/23 19:37 05/04/23 22:16 05/04/23 22:16 Temperature 96.5 F L 98 F Temperature Source Temporal Temporal Pulse Rate 85 86 87 Respiratory Rate 18 22 H 21 H Blood Pressure 144/94 H 127/73 H Blood Pressure Mean 110 91 Pulse Ox 99 97 100 Oxygen Delivery Method Room Air Room Air Room Air 05/04/23 23:00 05/05/23 00:00 Temperature 97.8 F 97.8 F Temperature Source Temporal Temporal Pulse Rate 80 80 Respiratory Rate 18 20 H Blood Pressure 158/93 H 149/83 H Blood Pressure Mean 114 105 Pulse Ox 92 93 Oxygen Delivery Method Room Air Room Air Positive well nourished and well developed Constitutional Narrative: Morbid obesity General Appearance ED: well developed and NAD HEENT Reports moist mucous membranes HEENT Narrative: Erythema/injection left TM, EAC normal no pain with manipulation of the pinna or tragus. Right side normal. normocephalic and atraumatic Eyes PERRL and EOMs intact bilaterally Eyes Narrative: Some horizontal nystagmus no vertical or rotatory nystagmus. Neck full ROM, no lymphadenopathy and supple Resp normal respiratory effort and clear to auscultation bilaterally Cardio regular rate, regular rhythm and no murmurs GI non-tender and non-distended Auscultation: normoactive bowel sounds Palpation: soft Back/Spine no CVA tenderness General Back: other FROM Extremity normal to inspection General Extremety ED: Negative for edema, pulses abnormal or tenderness General Extremity: Negative for edema or pulses abnormal Neuro oriented x3, CN's II-XII intact bilaterally and no sensory deficits noted Neuro Narrative: Normal [id number] and [id number] bilaterally Sensorium / Orientation: awake and alert Motor Exam: strength 5/5 throughout Psych mental status grossly normal Skin no rashes or lesions noted and no wounds MDM MDM MDM Narrative Medical decision making narrative: Patient seems to be having peripheral vertigo, causing his nausea and vomiting, rather than primary GI etiology. When I propose that to him, he is in agreement. He confirms that he is never nauseated/vomiting without being dizzy. I think his constipation is an uncomfortable and nonemergent problem. His abdomen is benign. I did obtain a head CT since he has had symptoms for couple weeks, it documented history of cerebellar dysmetria on his EMR, and it would be fairly definitive to rule out most central causes if negative, and it is. I reviewed the images and the report I agree with it. Other than a nonspecific leukocytosis and MARIA A due to dehydration his labs are unremarkable. His glucose is 198 he is a diabetic. He was treated with IV fluids, Reglan, Ativan, and oral meclizine when his nausea was better. All of this helped a lot. We were able to wake him up although he was a little somnolent, he was able to walk without difficulty, I will discharge him home with prescription medications to use as needed and follow-up with otolaryngology after the weekend. Lab Data Attestation: I reviewed the patient's lab results. Labs: Laboratory Results - last 24 hr 05/04/23 05/04/23 05/04/23 19:41 21:30 21:40 WBC 13.7 H RBC 5.79 Hgb 16.0 Hct 47.9 MCV 82.7 MCH 27.6 MCHC 33.4 RDW Std Deviation 39.0 RDW Coeff of Debi 13.0 Plt Count 334 MPV 10.6 Immature Gran % (Auto) 0.600 Neut % (Auto) 76.1 H Lymph % (Auto) 13.0 L [place] % (Auto) 7.8 Eos % (Auto) 1.8 Baso % (Auto) 0.7 Absolute Neuts (auto) 10.4 H Absolute Lymphs (auto) 1.78 Nucleated RBC % 0 Sodium 131 L Potassium 3.7 Chloride 96 L Carbon Dioxide 25.0 Anion Gap 10 BUN 22 H Creatinine 1.95 H Est GFR (MDRD) Af Amer 50 L Est GFR (MDRD) Non-Af 41 L BUN/Creatinine Ratio 11.3 Glucose 198 H Calcium 9.6 Total Bilirubin 0.70 Direct Bilirubin 0.24 AST 12 L ALT 20 Alkaline Phosphatase 138 H Total Protein 7.9 Albumin 4.0 Globulin 3.9 Lipase 26 Urine Color Yellow Urine Clarity Clear Urine pH 5.0 Ur Specific Bastian 1.030 Urine Protein 30 H Urine Glucose (UA) Normal Urine Ketones 5 H Urine Occult Blood 10 H Urine Nitrite Positive H Urine Bilirubin 3 H Urine Urobilinogen 4 H Ur Leukocyte Esterase 100 H Urine RBC 0-5 SEEN Urine WBC 0-5 SEEN Ur Squamous Epith Cells 0-5 SEEN Urine Bacteria 1+ Urine Mucus 0 SEEN POC Glucose 183 H Radiography Diagnostic Testing: Clinical Impression(s) from Imaging Studies Brain CT 05/04/23 22:26 IMPRESSION: Normal unenhanced CT scan of the brain. Electronically Signed: Richi Xie MD at 23:16 EDT , Discharge Plan Triage Chief Complaint: Nausea/Vomiting Other Complaint: Constipation ED Provider: Lee Hoffman Dx/Rx/DC Orders Clinical Impression: Episodic peripheral vertigo, Constipation Instructions: Vertigo Inner Ear Problems Prescriptions: New meclizine [meclizine] 25 mg tablet 25 mg PO Q8H PRN PRN (Reason: Dizziness) Qty: 20 0RF metoclopramide HCl [metoclopramide HCl] 10 mg tablet 10 mg PO Q6H PRN (Reason: nausea and vomiting) Qty: 14 0RF No Action citalopram 40 MG tablet 40 mg PO DAILY Patient Comments: TK 1 T PO QD chlorthalidone 25 MG tablet 25 mg PO DAILY esomeprazole magnesium 40 MG capsule,delayed release(DR/EC) 40 mg PO BIDCM Patient Comments: TK 1 C PO QD insulin glargine 100 unit/mL Cartridge 25 unit SUBCUT QHS gabapentin 800 mg Tablet 800 mg PO BID atorvastatin 40 mg Tablet 40 mg PO QHS metformin 1,000 mg Tablet 1,000 mg PO BID bupropion HCl [Wellbutrin XL] 150 mg Tablet Extended Release 24 Hr 150 mg PO DAILY acetaminophen [Tylenol] 325 mg Tablet 650 mg PO Q6H PRN PRN (Reason: Pain 1-10 Or Fever>100.7) Qty: 0 0RF nicotine 21 mg/24 hr Patch 24 Hour 21 mg transdermal DAILY Qty: 28 0RF carvedilol 25 mg Tablet 25 mg PO BID Qty: 60 0RF spironolactone 25 mg Tablet 25 mg PO DAILY Qty: 30 0RF minoxidil 10 mg Tablet 10 mg PO DAILY Qty: 30 0RF lisinopril 40 mg Tablet 40 mg PO BID Qty: 60 0RF hydralazine 100 mg tablet 100 mg PO TID Qty: 90 0RF amlodipine 10 mg Tablet 10 mg PO DAILY Qty: 30 0RF hydralazine 50 mg Tablet 100 mg PO TID Qty: 180 0RF lisinopril 40 mg tablet 40 mg PO DAILY Qty: 30 0RF Primary Care Provider: Pablo Lloyd Referrals: Jim Obrien MD [Med Staff - Active Staff] - Pablo Lloyd MD [Primary Care Provider] - Disposition Disposition: Home, Self Care
[2023-05-04] MEDS: Meclizine HCl 25 MG Tablet PO (22:33)
[2023-05-04] MEDS: LORazepam 2 MG/ML Syringe 0.5 MG IV (22:34)
[2023-05-04] MEDS: Metoclopramide 10 MG/2 ML Vial 5 MG IV (22:34)
[2023-05-04 23:00] VITALS: BP 158/93; PULSE 80; RESP 18; TEMP 36.6; O2SAT 92
[2023-05-04 23:04] LABS: AST(SGOT) 12 U/L (15-37); Alanine Aminotransfer ALT/SGPT 20 U/L (16-61); Alkaline Phosphatase 138 U/L (45-117); Bilirubin, Direct 0.24 mg/dL (0.00-0.30); Globulin 3.9 g/dL (2.2-4.2); Lipase 26 U/L (13-75); Protein, Total 7.9 g/dL (6.4-8.2)
[2023-05-05] VITALS: BP 149/83; PULSE 80; RESP 20; TEMP 36.6; O2SAT 93
[2023-05-05 01:57] VITALS: BP 137/45; PULSE 78; O2SAT 97
== END 2023-05-05 01:59 | disposition home or self-care (01) ==
PROVIDERS: Emergency Provider Emergency Medicine; PCP Internal Medicine; Visit Provider Emergency Medicine
DX: H53.8 Other visual disturbances (principal); E11.9 Type 2 diabetes mellitus without complications; R11.2 Nausea with vomiting, unspecified; I10 Essential (primary) hypertension; Z80.0 Family history of malignant neoplasm of digestive organs; M79.10 Myalgia, unspecified site; K59.00 Constipation, unspecified; E78.5 Hyperlipidemia, unspecified
CPT/HCPCS: 70450; 80048; 80076; 81001; 82962; 83690; 85025; 96361; 96374; 96375; 99284; J7030; A4216

== ENCOUNTER 2023-05-15 11:39 | Observation (INO) | payer OTHER, SELFPAY ==
[2023-05-15] VITALS (8 sets, daily range): BP systolic 123–141; BP diastolic 72–98; PULSE 69–88; RESP 11–20; TEMP 36.4–36.9; O2SAT 94–100; BMI 44.4; BMI 55.3
--- NOTE | 2023-05-15 11:56 | EDS_ITS ---
HPI History of Present Illness Chief Complaint: Dizziness Detail of Chief Complaint: Vomiting and dizziness Informant: patient Narrative Narrative: Patient presents to the emergency department with complaint of vomiting and feeling dizzy. Patient states that he has been throwing up for the last 4 weeks. Patient states that with movement he feels dizzy and it makes him throw up. Tells me he cannot keep anything down. He has been seen by his primary care physician and has also been seen in the ED. He had a CT scan of his brain last week that was unremarkable from what he tells me. Patient was seen by ENT today and was told that they could not figure out why he was dizzy and that might be either his medications or possibly something with his brain. Patient denies chest pain. He does describe some abdominal pressure that gets relieved after vomiting. Has not had issues like this before. He is having small bowel movements daily. Patient apparently was seen by his primary care physician today and he had relative hypotension in the office with a systolic of 100 which is unusual for the patient as he is normally hypertensive and he has not taken his blood pressure medication today. Was concern for dehydration. [facility] Medical History (Updated 05/15/23 @ 15:[address] Darnell Soto, ) Abdominal panniculus, symptomatic Abdominal wall abscess Benign essential hypertension Cellulitis and abscess of other specified site Gastroesophageal reflux disease Hyperglycemia due to type 2 diabetes mellitus Hyperlipidemia Intertrigo Morbid obesity Open wound anterior abdominal wall Panniculitis Severe sepsis Smoker Type 2 diabetes mellitus Home Medications chlorthalidone 25 mg tablet 25 mg PO DAILY BLOOD PRESSURE 01/25/19 [History Last Taken 01/25/19 12:00] citalopram 40 mg tablet 40 mg PO DAILY DEPRESSION 01/25/19 [History Last Taken 01/25/19 12:00] esomeprazole magnesium 40 mg capsule,delayed release 40 mg PO BIDCM HEARTBURN 01/25/19 [History Last Taken 01/25/19 12:00] atorvastatin 40 mg tablet 40 mg PO QHS 09/25/22 [History Last Taken Unknown] bupropion HCl 150 mg 24 hr tablet, extended release (Wellbutrin XL) 150 mg PO DAILY 09/25/22 [History Last Taken Unknown] gabapentin 800 mg tablet 800 mg PO BID 09/25/22 [History Last Taken Unknown] insulin glargine 100 unit/mL subcutaneous cartridge 25 unit subcut QHS 09/25/22 [History Last Taken Unknown] metformin 1,000 mg tablet 1,000 mg PO BID 09/25/22 [History Last Taken Unknown] acetaminophen 325 mg tablet (Tylenol) 650 mg (2 x 325 mg) PO Q6H PRN PRN Pain 1- 10 Or Fever>100.7 #0 tabs 09/29/22 [Rx Last Taken Unknown] amlodipine 10 mg tablet 10 mg PO DAILY #30 tabs 09/29/22 [Rx Last Taken Unknown] carvedilol 25 mg tablet 25 mg PO BID #60 tabs 09/29/22 [Rx Last Taken Unknown] hydralazine 100 mg tablet 100 mg PO TID #90 tabs 09/29/22 [Rx Last Taken Unknown] hydralazine 50 mg tablet 100 mg (2 x 50 mg) PO TID #180 tabs 09/29/22 [Rx Last Taken Unknown] lisinopril 40 mg tablet 40 mg PO BID #60 tabs 09/29/22 [Rx Last Taken Unknown] lisinopril 40 mg tablet 40 mg PO DAILY #30 tabs 09/29/22 [Rx Last Taken Unknown] minoxidil 10 mg tablet 10 mg PO DAILY #30 tabs 09/29/22 [Rx Last Taken Unknown] nicotine 21 mg/24 hr daily transdermal patch 21 mg transdermal DAILY #28 ea 09/29/22 [Rx Last Taken Unknown] spironolactone 25 mg tablet 25 mg PO DAILY #30 tabs 09/29/22 [Rx Last Taken Unknown] meclizine 25 mg tablet 25 mg PO Q8H PRN PRN Dizziness #20 tabs 05/05/23 [Rx Last Taken Unknown] metoclopramide HCl 10 mg tablet 10 mg PO Q6H PRN nausea and vomiting #14 tabs 05/05/23 [Rx Last Taken Unknown] Allergy/AdvReac Type Severity Reaction Status Date / Time No Known Allergies Allergy Verified 05/15/23 11:42 Family History Father Asthma Colon cancer Heart disease CAD (coronary artery disease) Hypertension Diabetes Grandfather Asthma Heart disease Diabetes Colon cancer Mother Thyroid disorder Diabetes Grandmother Asthma Colon cancer Diabetes Surgical History S/P tonsillectomy Social History household members: spouse housing: house Smoking Status: Current some day smoker tobacco type: cigars per week: 70 alcohol intake: never substance use type: does not use ROS ROS ED Review of Systems ROS Unobtainable: other Constitutional Constitutional ED: Reports lethargy; Denies chills, fever(s), sweats or weight loss Eyes Eyes: Denies blurry vision, change in vision or diplopia ENT ENT ED: Denies rhinorrhea or sore throat Cardiovascular Cardiovascular: Denies chest pain, orthopnea or racing heartbeat Respiratory/Chest Respiratory/Chest: Denies cough, dyspnea, dyspnea on exertion, orthopnea or sputum Gastrointestinal Gastrointestinal: Reports nausea and vomiting; Denies abdominal pain or diarrhea Genitourinary Genitourinary ED: Denies dysuria, hematuria or urinary frequency Musculoskeletal Musculoskeletal: Denies arthralgias, back pain, myalgias or neck pain Integumentary Denies abscess, Abrasions or rash Neurologic Neurologic: Reports other Details: Dizziness ; Denies headache(s) or weakness Psychiatric Psychiatric: Denies anxiety, depression or suicidal thoughts Endocrine Endocrinology: Denies polydipsia, polyphagia or polyuria Hematologic/Lymphatic Hematologic/Lymphatic: Denies easy bleeding, easy bruising or lymphadenopathy Allergic/Immunologic Allergic/Immunologic ED: Denies mouth swelling, tongue swelling or urticaria EXAM Physical Exam Const Vital Signs: 05/15/23 11:40 05/15/23 12:33 05/15/23 13:21 Temperature 98.4 F Temperature Source Temporal Pulse Rate 79 75 Pulse Rate [Lying] 86 Pulse Rate [Sitting (for 1 minute prior to obtaining)] 80 Pulse Rate [Standing (for 1 minute prior to obtaining)] 88 Respiratory Rate 16 Blood Pressure 141/92 H 134/72 H Blood Pressure [Lying] 125/72 H Blood Pressure [Sitting (for 1 minute prior to obtaining)] 130/76 H Blood Pressure [Standing (for 1 minute prior to obtaining)] 123/81 H Blood Pressure Mean 108 92 Blood Pressure Mean [Lying] 89 Blood Pressure Mean [Sitting (for 1 minute prior to obtaining)] 94 Blood Pressure Mean [Standing (for 1 minute prior to obtaining)] 95 Pulse Ox 97 97 Oxygen Delivery Method Room Air 05/15/23 14:00 Temperature Temperature Source Pulse Rate 73 Pulse Rate [Lying] Pulse Rate [Sitting (for 1 minute prior to obtaining)] Pulse Rate [Standing (for 1 minute prior to obtaining)] Respiratory Rate 11 L Blood Pressure 132/76 H Blood Pressure [Lying] Blood Pressure [Sitting (for 1 minute prior to obtaining)] Blood Pressure [Standing (for 1 minute prior to obtaining)] Blood Pressure Mean 94 Blood Pressure Mean [Lying] Blood Pressure Mean [Sitting (for 1 minute prior to obtaining)] Blood Pressure Mean [Standing (for 1 minute prior to obtaining)] Pulse Ox 94 Oxygen Delivery Method Room Air Positive well nourished and well developed General Appearance ED: well developed and NAD HEENT Reports TM's clear and moist mucous membranes normocephalic and atraumatic; Negative for trauma or tenderness Tympanic Membrane ED: Yes TM's clear Eyes PERRL and EOMs intact bilaterally General Eye ED: Negative for pale conjunctiva or scleral icterus Neck no lymphadenopathy, supple and no JVD General: Negative for tenderness Chest Wall inspection of chest normal and palpation of chest normal Chest: Negative for tenderness Resp normal respiratory effort and clear to auscultation bilaterally Effort and Inspection: Negative for respiratory distress or pain with movement Auscultation: Negative for rhonchi, wheezes or diminished lung sounds Cardio regular rate, regular rhythm, S1 normal heart sound, S2 normal heart sound and no murmurs Peripheral Pulses: pulses 2+ throughout GI normal to inspection, nondistended, normoactive bowel sounds, soft to palpation, non-tender, non-distended and no masses GI Narrative: Morbidly obese, no masses palpated, no rebound, rigidity, or peritoneal signs. Back/Spine no CVA tenderness and no thoracic nor lumbar tenderness Extremity normal to inspection General Extremety ED: Negative for edema General Extremity: Negative for edema Neuro oriented x3, CN's II-XII intact bilaterally, no sensory deficits noted and gait normal Neuro Narrative: Noted to nose and heel estes testing within normal limits, negative Romberg, negative for drift, fundi benign. Hallpike maneuver was negative for nystagmus. Sensorium / Orientation: awake, alert, oriented to person, oriented to place and oriented to time Motor Exam: strength 5/5 throughout and strength abnormal Psych mental status grossly normal Skin no rashes or lesions noted and no wounds MDM MDM MDM Narrative Medical decision making narrative: Patient with vomiting x4 weeks. IV line will be established. He will be given normal saline fluid bolus. Orthostatic vital signs will be obtained basic lab work-up. We will order a CT scan of the abdomen pelvis to evaluate for intra- abdominal process. He would have obtained showed a slightly elevated white count 11.4 with hemoglobin of 15 and platelets 287. Chemistries unremarkable. Lactate normal 1.3. LFTs normal. Elevated at 20 and creatinine 2.05. Alysis showed 5 ketones but no evidence of infection. Patient was ordered a liter mostly fluid bolus. He was given Reglan. He did feel improved. I did discuss case with hospitalist as patient is quite frustrated as well as his family given continued symptoms for more than 4 weeks and significant weight loss he thinks he is lost more than 90 pounds. Case discussed with hospitalist will evaluate patient for admission. Etiology of dizziness and vomiting uncertain. Scan of the abdomen pelvis essentially unremarkable. Lab Data Attestation: I reviewed the patient's lab results. Labs: Laboratory Results - last 24 hr 05/15/23 05/15/23 12:17 13:44 WBC 11.4 H RBC 5.46 Hgb 15.3 Hct 44.6 MCV 81.7 MCH 28.0 MCHC 34.3 RDW Std Deviation 38.1 RDW Coeff of Debi 12.8 Plt Count 287 MPV 10.8 Immature Gran % (Auto) 0.600 Neut % (Auto) 77.3 H Lymph % (Auto) 13.6 L [place] % (Auto) 6.9 Eos % (Auto) 1.1 Baso % (Auto) 0.5 Absolute Neuts (auto) 8.8 H Absolute Lymphs (auto) 1.55 Nucleated RBC % 0 Sodium 132 L Potassium 3.8 Chloride 98 Carbon Dioxide 26.0 Anion Gap 8 BUN 20 H Creatinine 2.05 H Est GFR (MDRD) Af Amer 47 L Est GFR (MDRD) Non-Af 39 L BUN/Creatinine Ratio 9.8 L Glucose 130 H Lactic Acid 1.3 Calcium 9.6 Total Bilirubin 0.60 AST 12 L ALT 17 Alkaline Phosphatase 112 Total Protein 7.4 Albumin 3.9 Globulin 3.5 Albumin/Globulin Ratio 1.1 Urine Color Yellow Urine Clarity Clear Urine pH 5.0 Ur Specific [place] 1.025 Urine Protein 30 H Urine Glucose (UA) Normal Urine Ketones 5 H Urine Occult Blood Negative Urine Nitrite Negative Urine Bilirubin 1 H Urine Urobilinogen Normal Ur Leukocyte Esterase 25 H Urine RBC 0 SEEN Urine WBC 0-5 SEEN Ur Squamous Epith Cells 5-10 SEEN Urine Bacteria 0 SEEN Urine Mucus 0 SEEN Radiography Diagnostic Testing: Clinical Impression(s) from Imaging Studies Abdomen/Pelvis CT 05/15/23 13:16 IMPRESSION: Coronary artery calcification. Small right inguinal hernia. Scattered sigmoid diverticula. Mild splenomegaly. Electronically Signed: Jason Rodriguez MD at 14:23 EDT , Discharge Plan Triage Chief Complaint: Dizziness ED Provider: Darnell Soto Dx/Rx/DC Orders Clinical Impression: MARIA A (acute kidney injury), Dizziness, Abnormal weight loss, Vomiting Prescriptions: No Action citalopram 40 MG tablet 40 mg PO DAILY Patient Comments: TK 1 T PO QD chlorthalidone 25 MG tablet 25 mg PO DAILY esomeprazole magnesium 40 MG capsule,delayed release(DR/EC) 40 mg PO BIDCM Patient Comments: TK 1 C PO QD insulin glargine 100 unit/mL Cartridge 25 unit SUBCUT QHS gabapentin 800 mg Tablet 800 mg PO BID atorvastatin 40 mg Tablet 40 mg PO QHS metformin 1,000 mg Tablet 1,000 mg PO BID bupropion HCl [Wellbutrin XL] 150 mg Tablet Extended Release 24 Hr 150 mg PO DAILY acetaminophen [Tylenol] 325 mg Tablet 650 mg PO Q6H PRN PRN (Reason: Pain 1-10 Or Fever>100.7) Qty: 0 0RF nicotine 21 mg/24 hr Patch 24 Hour 21 mg transdermal DAILY Qty: 28 0RF carvedilol 25 mg Tablet 25 mg PO BID Qty: 60 0RF spironolactone 25 mg Tablet 25 mg PO DAILY Qty: 30 0RF minoxidil 10 mg Tablet 10 mg PO DAILY Qty: 30 0RF lisinopril 40 mg Tablet 40 mg PO BID Qty: 60 0RF hydralazine 100 mg tablet 100 mg PO TID Qty: 90 0RF amlodipine 10 mg Tablet 10 mg PO DAILY Qty: 30 0RF hydralazine 50 mg Tablet 100 mg PO TID Qty: 180 0RF lisinopril 40 mg tablet 40 mg PO DAILY Qty: 30 0RF meclizine [meclizine] 25 mg tablet 25 mg PO Q8H PRN PRN (Reason: Dizziness) Qty: 20 0RF metoclopramide HCl [metoclopramide HCl] 10 mg tablet 10 mg PO Q6H PRN (Reason: nausea and vomiting) Qty: 14 0RF Primary Care Provider: Pablo Lloyd Referrals: Pablo Lloyd MD [Primary Care Provider] - Disposition Disposition: Acute Care Hospital [facility]
[2023-05-15 12:28] LABS: Absolute Lymphocyte Count 1.55 X10^3/uL (0.83-4.51); Absolute Neutrophil Count 8.8 X10^3/uL (2.0-7.7); Basophil# 0.06 X10^3/uL; Basophil% 0.5 % (0-1); Eosinophil# 0.12 X10^3/uL; Eosinophils% 1.1 % (0-5); Hematocrit 44.6 % (40-54); Hemoglobin 15.3 g/dL (13.0-16.5); Lymphocyte # 1.55 X10^3/ul (0.83-4.51); Lymphocyte % 13.6 % (19-41); Mean Corp Hgb Conc 34.3 g/dL (32-36); Mean Corpuscular Volume 81.7 fL (80-94); Mean Platelet Vol. 10.8 fl (6.2-12.0); Monocyte# 0.79 X10^3/uL; Monocyte% 6.9 % (0-10); NRBC Flagged by Analyzer 0 % (0-5); Neutrophil # 8.83 X10^3/uL (2.7-7.7); Neutrophil % 77.3 % (47-70); Platelet Count 287 K/mm3 (150-450); RBC Distribution Width CV 12.8 % (11.6-14.6); RBC Distribution Width SD 38.1 fl (35.1-43.9); Red Blood Count 5.46 M/mm3 (4.6-6.2); White Blood Count 11.4 K/mm3 (4.4-11.0)
[2023-05-15] MEDS: 0.9% Normal Saline (1000mL) 1,000 ML 1000 ML IV (12:31)
[2023-05-15] MEDS: Metoclopramide 10 MG/2 ML Vial IV (12:31)
[2023-05-15 12:43] LABS: ALB/GLOB Ratio 1.1 RATIO (0.9-2.4); AST(SGOT) 12 U/L (15-37); Alanine Aminotransfer ALT/SGPT 17 U/L (16-61); Albumin, Serum 3.9 g/dL (3.2-5.0); Alkaline Phosphatase 112 U/L (45-117); Anion Gap 8 (5-15); BUN 20 mg/dL (7-18); BUN/Creat Ratio 9.8 RATIO (10-20); Calcium,Total 9.6 mg/dL (8.5-10.1); Chloride 98 mmol/L (98-107); Creatinine, Serum 2.05 mg/dL (0.70-1.30); EST Glomerular Filtration Rate 39 mL/min (>60); Est Glom Filt Rate - Afr Amer 47 mL/min (>60); Globulin 3.5 g/dL (2.2-4.2); Glucose 130 mg/dL (74-106); Potassium 3.8 mmol/L (3.5-5.1); Protein, Total 7.4 g/dL (6.4-8.2); Sodium Level 132 mmol/L (136-145)
[2023-05-15 12:54] LABS: Lactic Acid 1.3 mmol/L (0.4-1.9)
--- NOTE | 2023-05-15 13:16 | CT_ITS ---
STUDY: CT ABDOMEN AND PELVIS WITH CONTRAST REASON FOR EXAM: Male, 38 years old. Vomiting. RADIATION DOSAGE (If Supplied By Facility): CTDIvol = ( 24.33 ) mGy, DLP = ( 1926.69 ) mGycm TECHNIQUE: Transaxial images were obtained from the dome of the diaphragm to the symphysis pubis without oral contrast. 100ML OF ISOVUE 300 was administered. Sagittal and coronal images were reconstructed. Individualized dose optimization techniques were used for this CT. COMPARISON: None. FINDINGS: The visualized lung bases are unremarkable. Coronary artery calcification. Normal liver. Normal gallbladder and extrahepatic biliary system. There is mild splenomegaly. Normal pancreas. Normal bilateral adrenal glands. Normal right kidney. Normal left kidney. Normal visualized stomach. Normal small intestine. There are scattered colonic diverticula consistent with diverticulosis. The appendix is visualized and appears normal. There is scattered atherosclerotic calcification of the abdominal aorta, without a demonstrated aneurysm. Normal inferior vena cava. Normal retroperitoneum. Normal urinary bladder. There is a small umbilical hernia containing fat. Normal osseous structures. CT/Abdomen/Pelvis W IV Cont ONLY IMPRESSION: Coronary artery calcification. Small right inguinal hernia. Scattered sigmoid diverticula. Mild splenomegaly. Electronically Signed: Jason Rodriguez MD at 14:23 EDT ,
[2023-05-15 13:49] LABS: Bacteria 0 SEEN /hpf (None Seen); Mucous, Urine 0 SEEN /hpf (<or=2+); Red Blood Cells-Urine 0 SEEN /hpf (0-5)
[2023-05-15 13:52] LABS: Color, Urine Yellow (Yellow); Glucose, Dipstick Normal (Normal); Ketone-Dipstick 5 mg/dl (Negative); Leukocyte Esterase-Dipstick 25 /ul (Negative); Nitrite-Dipstick Negative (Negative); Occult Blood-Urine Negative /ul (Negative); Protein-Dipstick 30 mg/dl (Negative); Specific Gravity, Urine 1.025 (1.002-1.030); Urine Clarity Clear (Clear); Urine Urobilinogen Normal (Normal)
[2023-05-15 13:53] LABS: Urine Bilirubin Dipstick 1 mg/dL (Negative)
[2023-05-15 13:57] LABS: Squamous Epithelial Cells - UA 5-10 SEEN /hpf (0-5); White Blood Cells 0-5 SEEN /hpf (0-5)
[2023-05-15] MEDS: 0.9% Normal Saline (1000mL) 1,000 ML 150 ML IV (14:39)
--- NOTE | 2023-05-15 15:42 | NURSING ---
DR DOUGLAS FOR DR ALLEN
--- NOTE | 2023-05-15 15:49 | NURSING ---
MED SURG MISAEL VOMITING, WEIGHT LOSS, DIZZINESS
--- NOTE | 2023-05-15 16:53 | HP.PCM.HOS_ITS ---
[facility] - General General Date of Admission: 05/15/23 HPI Narrative CHIDI ALVAREZ, is a 38 M who presents with 4 weeks of nausea and vomiting. He has not been eating very well and he states that every time he eats something it does feel like it goes down but then he developed some nausea and then brings it back up. He has had about a 20 pound weight loss in the last month because of it. He has gone to see his PCP who is unclear as to what was going on so we referred him to ENT for some dizziness issues which they were unable to find anything. They trialed him on some Reglan which has not helped. He presented today because of continued nausea and vomiting as well as dizziness. Did have some dizziness and dysmetria back in September 2022 at that time an MRI was unremarkable. Today on admission his creatinine is 2.05 and he does indicate some dry mouth. He has been having a sensation of early satiety, he is a cigar smoker and there is family history of gastric cancer. He is also a type II diabetic since the age of 14. [facility] Medical History (Updated 05/15/23 @ 15:[address] Darnell Soto, ) Abdominal panniculus, symptomatic Abdominal wall abscess Benign essential hypertension Cellulitis and abscess of other specified site Gastroesophageal reflux disease Hyperglycemia due to type 2 diabetes mellitus Hyperlipidemia Intertrigo Morbid obesity Open wound anterior abdominal wall Panniculitis Severe sepsis Smoker Type 2 diabetes mellitus Home Medications chlorthalidone 25 mg tablet 25 mg PO DAILY BLOOD PRESSURE 01/25/19 [History Last Taken 05/14/23] citalopram 40 mg tablet 40 mg PO DAILY DEPRESSION 01/25/19 [History Last Taken 05/14/23] esomeprazole magnesium 40 mg capsule,delayed release 40 mg PO DAILY HEARTBURN 01/25/19 [History Last Taken 05/15/23] atorvastatin 40 mg tablet 40 mg PO QHS 09/25/22 [History Last Taken 05/14/23] bupropion HCl 150 mg 24 hr tablet, extended release (Wellbutrin XL) 150 mg PO DAILY 09/25/22 [History Last Taken 05/14/23] gabapentin 800 mg tablet 800 mg PO BID 09/25/22 [History Last Taken 05/14/23] metformin 1,000 mg tablet 1,000 mg PO BID 09/25/22 [History Last Taken 05/14/23] amlodipine 10 mg tablet 10 mg PO DAILY #30 tabs 09/29/22 [Rx Last Taken 05/14/23] carvedilol 25 mg tablet 25 mg PO BID #60 tabs 09/29/22 [Rx Last Taken 05/14/23] hydralazine 100 mg tablet 100 mg PO TID #90 tabs 09/29/22 [Rx Last Taken 05/14/23] lisinopril 40 mg tablet 40 mg PO DAILY #30 tabs 09/29/22 [Rx Last Taken 05/14/23] minoxidil 10 mg tablet 10 mg PO DAILY #30 tabs 09/29/22 [Rx Last Taken 05/14/23] spironolactone 25 mg tablet 25 mg PO DAILY #30 tabs 09/29/22 [Rx Last Taken 05/14/23] metoclopramide HCl 10 mg tablet 10 mg PO Q6H PRN nausea and vomiting #14 tabs 05/05/23 [Rx Last Taken 05/14/23] amoxicillin 875 mg tablet 875 mg PO BID 05/15/23 [History Last Taken 05/14/23] insulin glargine 100 unit/mL (3 mL) subcutaneous pen 25 unit subcut QHS DM 05/15/23 [History Last Taken 05/14/23] Allergy/AdvReac Type Severity Reaction Status Date / Time No Known Allergies Allergy Verified 05/15/23 16:40 Family History Father Asthma Colon cancer Heart disease CAD (coronary artery disease) Hypertension Diabetes Grandfather Asthma Heart disease Diabetes Colon cancer Mother Thyroid disorder Diabetes Grandmother Asthma Colon cancer Diabetes Surgical History S/P tonsillectomy Social History household members: spouse housing: house Smoking Status: Current some day smoker tobacco type: cigars per week: 70 alcohol intake: never substance use type: does not use ROS Constitutional Constitutional: Denies chills, fatigue, fever(s) or malaise Eyes Eyes: Denies blurry vision ENT HEENT: Denies headache(s) or nasal discharge Cardiovascular Cardiovascular: Reports lightheadedness; Denies chest pain, dyspnea on exertion or syncope Respiratory/Chest Respiratory/Chest: Denies cough, shortness of breath at rest or shortness of breath with exertion Gastrointestinal Gastrointestinal: Reports nausea and vomiting; Denies constipation or diarrhea Genitourinary Genitourinary: Denies dysuria Neurologic Neurologic: Denies focal weakness, numbness or tremor(s) Psychiatric Psychiatric: Denies anxiety or depression Vital Signs Vital Signs Vital Signs: 05/15/23 11:40 05/15/23 12:33 05/15/23 13:21 Temperature 98.4 F Temperature Source Temporal Pulse Rate 79 75 Pulse Rate [Lying] 86 Pulse Rate [Sitting (for 1 minute prior to obtaining)] 80 Pulse Rate [Standing (for 1 minute prior to obtaining)] 88 Respiratory Rate 16 Blood Pressure 141/92 H 134/72 H Blood Pressure [Lying] 125/72 H Blood Pressure [Sitting (for 1 minute prior to obtaining)] 130/76 H Blood Pressure [Standing (for 1 minute prior to obtaining)] 123/81 H Blood Pressure Mean 108 92 Blood Pressure Mean [Lying] 89 Blood Pressure Mean [Sitting (for 1 minute prior to obtaining)] 94 Blood Pressure Mean [Standing (for 1 minute prior to obtaining)] 95 Pulse Ox 97 97 Oxygen Delivery Method Room Air 05/15/23 14:00 05/15/23 16:00 Temperature 98.5 F Temperature Source Oral Pulse Rate 73 79 Pulse Rate [Lying] Pulse Rate [Sitting (for 1 minute prior to obtaining)] Pulse Rate [Standing (for 1 minute prior to obtaining)] Respiratory Rate 11 L 17 Blood Pressure 132/76 H 130/75 H Blood Pressure [Lying] Blood Pressure [Sitting (for 1 minute prior to obtaining)] Blood Pressure [Standing (for 1 minute prior to obtaining)] Blood Pressure Mean 94 93 Blood Pressure Mean [Lying] Blood Pressure Mean [Sitting (for 1 minute prior to obtaining)] Blood Pressure Mean [Standing (for 1 minute prior to obtaining)] Pulse Ox 94 96 Oxygen Delivery Method Room Air Room Air Weight Weight: 346 lb 2.012 oz Body Mass Index (BMI) 44.4 Physical Exam Narrative General: Alert, Oriented x3, Cooperative, No apparent distress HEENT: Atraumatic, PERRLA, EOMI, Normocephalic Oral: Dry mucosa Neck: Supple, No JVD Lungs: Clear to auscultation, Normal air movement, No rhonchi, No wheeze, No rales Cardiovascular: Regular rate, Regular Rhythm, Normal S1, Normal S2, No murmurs Abdomen: Soft, Non Tender, Non-Distended, No Hepato-splenomegaly Extremities: No edema, Capillary Refill Less than 3 Seconds Skin: No rashes, No breakdown Musculoskeletal: No Tenderness to Palpation of Joints or Extremities Neurological: Cranial nerves II-XII grossly intact, Motor Exam 5/5 strength throughout, Sensory exam intact to light touch and pain Psych/Mental Status: Normal Affect, Appropriate Results Lab / Micro Data 05/15/23 12:17 05/15/23 12:17 Labs: Laboratory Results - last 24 hr 05/15/23 12:17: WBC 11.4 H, RBC 5.46, Hgb 15.3, Hct 44.6, MCV 81.7, MCH 28.0, MCHC 34.3, RDW Std Deviation 38.1, RDW Coeff of Debi 12.8, Plt Count 287, MPV 10.8, Immature Gran % (Auto) 0.600, Neut % (Auto) 77.3 H, Lymph % (Auto) 13.6 L, [place] % (Auto) 6.9, Eos % (Auto) 1.1, Baso % (Auto) 0.5, Absolute Neuts (auto) 8.8 H, Absolute Lymphs (auto) 1.55, Nucleated RBC % 0, Sodium 132 L, Potassium 3.8, Chloride 98, Carbon Dioxide 26.0, Anion Gap 8, BUN 20 H, Creatinine 2.05 H, Est GFR (MDRD) Af Amer 47 L, Est GFR (MDRD) Non-Af 39 L, BUN/Creatinine Ratio 9.8 L, Glucose 130 H, Lactic Acid 1.3, Calcium 9.6, Total Bilirubin 0.60, AST 12 L, ALT 17, Alkaline Phosphatase 112, Total Protein 7.4, Albumin 3.9, Globulin 3.5, Albumin/Globulin Ratio 1.1 05/15/23 13:44: Urine Color Yellow, Urine Clarity Clear, Urine pH 5.0, Ur Specific [place] 1.025, Urine Protein 30 H, Urine Glucose (UA) Normal, Urine Ketones 5 H, Urine Occult Blood Negative, Urine Nitrite Negative, Urine Bilirubin 1 H, Urine Urobilinogen Normal, Ur Leukocyte Esterase 25 H, Urine RBC 0 SEEN, Urine WBC 0-5 SEEN, Ur Squamous Epith Cells 5-10 SEEN, Urine Bacteria 0 SEEN, Urine Mucus 0 SEEN Radiology Impression Abdomen/Pelvis CT 05/15/23 13:16 IMPRESSION: Coronary artery calcification. Small right inguinal hernia. Scattered sigmoid diverticula. Mild splenomegaly. Electronically Signed: Jason Rodriguez MD at 14:23 EDT , Assessment & Plan Assessment/Plan (1) Vomiting: (2) MARIA A (acute kidney injury): PLAN: Plan 1. MARIA A secondary to dehydration from nausea and vomiting of unknown etiology/GERD ? Given his history of diabetes his issues could be related to gastroparesis ? Given his family history of gastric cancer as well as his weight loss and his smoking history I do think it be beneficial to obtain a GI evaluation for EGD, he had a EGD in 2018 that demonstrated normal esophagus with gastritis and erythematous duodenopathy. Pathology at that time demonstrated gastritis with no H. pylori ? We will place him on a PPI and put him on a clear liquid diet ? We will place him on IV fluids as well as Zofran and Reglan ? Baseline creatinine is around 1, on admission to 2.5 ? Continue with PPI 2. HTN/HLD/morbid obesity ? She did have dysmetria in September MRI was normal at that time he was also having significant proteinuria secondary to his hypertension ? He does not have any orthostatic vital signs while here in the ER we will resume his home blood pressure medications except for his chlorthalidone, lisinopril, Aldactone secondary to his MARIA A with a creatinine of 2.5 3. DM2 with peripheral neuropathy ? We will hold his home insulin as well as his his metformin especially since he received IV contrast with his MARIA A ? We will place on sliding scale insulin ? Accu-Cheks ACHS ? We will monitor and make adjustments as necessary ? Given his MARI AA will hold his gabapentin DVT: Ambulation 75 minutes was spent on direct patient care, including documentation as well as chart review and collaboration with colleagues Charges/Coding Visit Charges Inpatient E&M: 67519 Init Hosp L3
[2023-05-15] MEDS: 0.9% Normal Saline (1000mL) 1,000 ML 100 ML IV (20:03)
[2023-05-15] MEDS: hydrALAZINE 50 MG Tablet 100 MG PO (20:15)
[2023-05-15] MEDS: Atorvastatin Calcium 40 MG Tablet PO (20:15)
[2023-05-15] MEDS: Carvedilol 25 MG Tablet PO (20:15)
[2023-05-15] MEDS: Insulin Lispro 100 UNIT/ML INSULN.PEN SC (20:17)
[2023-05-15 20:46] LABS: Bedside Glucose 168 mg/dL (74-106)
[2023-05-16] VITALS (15 sets, daily range): BP systolic 137–159; BP diastolic 77–106; PULSE 65–77; RESP 16–18; TEMP 36.1–36.7; O2SAT 95–99; BMI 55.3
--- NOTE | 2023-05-16 | EGD_PTH ---
PATIENT: CHIDI ALVAREZ LOC: MS3 U#:[id number] AGE/SX: 38/M ROOM: [facility] [place] RE05/15/[address]: Dr. Ankit Gomez MD : 1985 BED: 1 DIS: 05/16/2023 SPEC #: [id number] RECD: 05/16/23 15:12 STATUS: CARLO BOBO #: [id number] ABIMAEL: 05/16/23 00:[address]: Yang Napier DEPT: SURGICAL PATHOLOGY RECD BY: Shani Rodriguez ENTERED: 05/17/23 09:05 SP TYPE: EGD BIOPSY OTHR DR: MD Dr. Pablo Patel MD Tissues: A - Gastric mucous membrane B - Gastric mucous membrane C - Duodenum, NOS Procedures: Surgery Specimen Level IV Comments: @ Ordering doctor for SUIV edited from to @ by RGOHALLIE at 05/17/23 140 @ Submitting doctor edited from to @ by RGOOD at 05/17/23 1402 HEADER OPERATION: EGD with biopsies PRE-OP DIAGNOSIS: Vomiting, acute kidney injury TISSUE SUBMITTED: A - Gastric antrum biopsy for H. pylori and path, B - Gastric cardia biopsy, C - Duodenum biopsy MICROSCOPIC DIAGNOSIS A. Gastric antrum, biopsy: Mild gastritis. See microscopic description and comment. B. Gastric cardia, biopsy: Mild gastritis. See microscopic description. C. Duodenum, biopsy: Fragments of duodenal mucosa, no pathologic diagnosis. SJ:vi 05/18/2023 COMMENT A. The results of immunohistochemistry for Helicobacter pylori will be reported separately ([id number]). MICROSCOPIC DESCRIPTION Slides are reviewed. A & B. The specimen shows fragments of gastric mucosa with chronic inflammatory cell infiltrates in the lamina propria consisting of lymphocytes and plasma cells, consistent with mild chronic gastritis. GROSS DESCRIPTION A - Received in fixative is one container labeled with the patient's name and designated gastric antrum. The specimen consists of two irregular fragments of light draper soft tissue that in aggregate measure 0.6 x 0.3 x 0.1 cm. The specimen is totally submitted in one cassette. B - Received in fixative is one container labeled with the patient's name and designated gastric cardia biopsy. The specimen consists of two irregular fragments of light draper soft tissue that in aggregate measure 0.6 x 0.3 x 0.1 cm. The specimen is totally submitted in one cassette. C - Received in fixative is one container labeled with the patient's name and designated duodenal biopsy. The specimen consists of multiple irregular fragments of light draper soft tissue that in aggregate measure 1.0 x 0.3 x 0.1 cm. The specimen is totally submitted in one cassette. / SJ:rg 05/17/2023 TC:3 CPT: 65438 x3
--- NOTE | 2023-05-16 05:00 | EKG12_ITS ---
Test Reason : am ekg Blood Pressure : / mmHG Vent. Rate : 064 BPM Atrial Rate : 064 BPM P-R Int : 200 ms QRS Dur : 094 ms QT Int : 430 ms P-R-T Axes : -14 035 027 degrees QTc Int : 443 ms Normal sinus rhythm Normal ECG When compared with ECG of 25-SEP-2022 20:39, Vent. rate has decreased BY 44 BPM Non-specific change in ST segment in Lateral leads Nonspecific T wave abnormality no longer evident in Lateral leads QT has shortened Confirmed by SHIVA PATRICIA, PATRICIA ([id number]), food expeditor RUBI MCCULLOUGH ([id number]) on 06/12/2023 1:20:39 PM Referred By: Patricia Confirmed By:PATRICIA SHANNON MD
[2023-05-16 06:04] LABS: Absolute Lymphocyte Count 2.32 X10^3/uL (0.83-4.51); Absolute Neutrophil Count 5.8 X10^3/uL (2.0-7.7); Basophil# 0.07 X10^3/uL; Basophil% 0.8 % (0-1); Eosinophil# 0.21 X10^3/uL; Eosinophils% 2.3 % (0-5); Hematocrit 42.5 % (40-54); Lymphocyte # 2.32 X10^3/ul (0.83-4.51); Lymphocyte % 25.2 % (19-41); Mean Corp Hgb Conc 32.9 g/dL (32-36); Mean Corpuscular Hgb 27.5 pg (27.0-32.0); Mean Corpuscular Volume 83.5 fL (80-94); Mean Platelet Vol. 10.9 fl (6.2-12.0); Monocyte# 0.74 X10^3/uL; NRBC Flagged by Analyzer 0 % (0-5); Neutrophil # 5.82 X10^3/uL (2.7-7.7); Neutrophil % 63.2 % (47-70); Platelet Count 248 K/mm3 (150-450); RBC Distribution Width CV 12.7 % (11.6-14.6); RBC Distribution Width SD 38.7 fl (35.1-43.9); Red Blood Count 5.09 M/mm3 (4.6-6.2); White Blood Count 9.2 K/mm3 (4.4-11.0)
[2023-05-16] MEDS: Miconazole Nitrate 43 GM Bottle 1 APPLIC TOPICAL ×2 (06:17→09:27)
[2023-05-16] MEDS: 0.9% Saline Lock 10 ML Syringe IV (06:18)
[2023-05-16] MEDS: hydrALAZINE 50 MG Tablet 100 MG PO ×2 (06:23→13:24)
[2023-05-16 06:38] LABS: Anion Gap 5 (5-15); BUN 16 mg/dL (7-18); BUN/Creat Ratio 11.3 RATIO (10-20); Calcium,Total 9.1 mg/dL (8.5-10.1); Chloride 101 mmol/L (98-107); Creatinine, Serum 1.42 mg/dL (0.70-1.30); EST Glomerular Filtration Rate 59 mL/min (>60); Est Glom Filt Rate - Afr Amer 71 mL/min (>60); Glucose 124 mg/dL (74-106); Potassium 3.3 mmol/L (3.5-5.1); Sodium Level 133 mmol/L (136-145)
[2023-05-16 06:44] LABS: Bedside Glucose 115 mg/dL (74-106)
[2023-05-16 08:33] LABS: Hemoglobin A1c 7.2 % (3.8-5.6)
[2023-05-16] MEDS: Pantoprazole Sodium 40 MG Tablet PO (09:29)
--- NOTE | 2023-05-16 09:47 | PCM.PN.HOSP ---
Subjective Subjective Doing well, feels a bit better, denies any dizziness today. Objective Data Objective Data Vital Signs: Vital Signs Temp Pulse Resp BP Pulse Ox O2 Del Method 97.8 F 72 18 141/77 H 98 Room Air 05/16/23 08:16 05/16/23 08:16 05/16/23 08:16 05/16/23 08:16 05/16/23 08:16 05/16/23 08:17 Oxygen Delivery Method Room Air Weight: 430 lb 9.004 oz Body Mass Index (BMI) 55.3 Intake & Output: Intake and Output for Last 24 Hours 05/15/23 05/16/23 05/17/23 03:59 03:59 03:59 Intake Total 3096.67 / 3096.67 0 / 0 Balance 3096.67 / 3096.67 0 / 0 Lab / Micro Data 05/16/23 05:30 05/16/23 05:30 Labs: Laboratory Results - last 24 hr 05/15/23 12:17: WBC 11.4 H, RBC 5.46, Hgb 15.3, Hct 44.6, MCV 81.7, MCH 28.0, MCHC 34.3, RDW Std Deviation 38.1, RDW Coeff of Debi 12.8, Plt Count 287, MPV 10.8, Immature Gran % (Auto) 0.600, Neut % (Auto) 77.3 H, Lymph % (Auto) 13.6 L, [place] % (Auto) 6.9, Eos % (Auto) 1.1, Baso % (Auto) 0.5, Absolute Neuts (auto) 8.8 H, Absolute Lymphs (auto) 1.55, Nucleated RBC % 0, Sodium 132 L, Potassium 3.8, Chloride 98, Carbon Dioxide 26.0, Anion Gap 8, BUN 20 H, Creatinine 2.05 H, Est GFR (MDRD) Af Amer 47 L, Est GFR (MDRD) Non-Af 39 L, BUN/Creatinine Ratio 9.8 L, Glucose 130 H, Lactic Acid 1.3, Calcium 9.6, Total Bilirubin 0.60, AST 12 L, ALT 17, Alkaline Phosphatase 112, Total Protein 7.4, Albumin 3.9, Globulin 3.5, Albumin/Globulin Ratio 1.1 05/15/23 13:44: Urine Color Yellow, Urine Clarity Clear, Urine pH 5.0, Ur Specific [place] 1.025, Urine Protein 30 H, Urine Glucose (UA) Normal, Urine Ketones 5 H, Urine Occult Blood Negative, Urine Nitrite Negative, Urine Bilirubin 1 H, Urine Urobilinogen Normal, Ur Leukocyte Esterase 25 H, Urine RBC 0 SEEN, Urine WBC 0-5 SEEN, Ur Squamous Epith Cells 5-10 SEEN, Urine Bacteria 0 SEEN, Urine Mucus 0 SEEN 05/15/23 20:17: POC Glucose 168 H 05/16/23 05:30: WBC 9.2, RBC 5.09, Hgb 14.0, Hct 42.5, MCV 83.5, MCH 27.5, MCHC 32.9, RDW Std Deviation 38.7, RDW Coeff of Debi 12.7, Plt Count 248, MPV 10.9, Immature Gran % (Auto) 0.500, Neut % (Auto) 63.2, Lymph % (Auto) 25.2, [place] % (Auto) 8.0, Eos % (Auto) 2.3, Baso % (Auto) 0.8, Absolute Neuts (auto) 5.8, Absolute Lymphs (auto) 2.32, Nucleated RBC % 0, Sodium 133 L, Potassium 3.3 L, Chloride 101, Carbon Dioxide 27.0, Anion Gap 5, BUN 16, Creatinine 1.42 H, Estim Creat Clear Calc 81.20, Est GFR (MDRD) Af Amer 71, Est GFR (MDRD) Non-Af 59 L, BUN/Creatinine Ratio 11.3, Glucose 124 H, Hemoglobin A1c 7.2 H, Calcium 9.1 05/16/23 06:20: POC Glucose 115 H Radiography Diagnostic Testing: Radiology Impression Abdomen/Pelvis CT 05/15/23 13:16 IMPRESSION: Coronary artery calcification. Small right inguinal hernia. Scattered sigmoid diverticula. Mild splenomegaly. Electronically Signed: Jason Rodriguez MD at 14:23 EDT , Physical Exam Narrative General: Alert, Oriented x3, Cooperative, No apparent distress HEENT: Atraumatic, PERRLA, EOMI, Normocephalic Oral: Moist mucosa Neck: Supple, No JVD Lungs: Clear to auscultation, Normal air movement, No rhonchi, No wheeze, No rales Cardiovascular: Regular rate, Regular Rhythm, Normal S1, Normal S2, No murmurs Abdomen: Soft, Non Tender, Non-Distended, No Hepato-splenomegaly Extremities: No edema, Capillary Refill Less than 3 Seconds Skin: No rashes, No breakdown Musculoskeletal: No Tenderness to Palpation of Joints or Extremities Neurological: Cranial nerves II-XII grossly intact, Motor Exam 5/5 strength throughout, Sensory exam intact to light touch and pain Psych/Mental Status: Normal Affect, Appropriate Assessment & Plan Assessment/Plan (1) Vomiting: (2) MARIA A (acute kidney injury): PLAN: Plan 1. MARIA A secondary to dehydration from nausea and vomiting of unknown etiology/GERD ? Given his history of diabetes his issues could be related to gastroparesis ? Given his family history of gastric cancer as well as his weight loss and his smoking history I do think it be beneficial to obtain a GI evaluation for EGD, he had a EGD in 2018 that demonstrated normal esophagus with gastritis and erythematous duodenopathy. Pathology at that time demonstrated gastritis with no H. pylori ? We will place him on a PPI ? N.p.o. today pending EGD this afternoon ? We will place him on IV fluids as well as Zofran and Reglan 2. HTN/HLD/morbid obesity ? He did have dysmetria in September MRI was normal at that time he was also having significant proteinuria secondary to his hypertension ? He does not have any orthostatic vital signs while here in the ER we will resume his home blood pressure medications except for his chlorthalidone, lisinopril, Aldactone secondary to his MARIA A with a creatinine of 2.5 3. DM2 with peripheral neuropathy ? We will hold his home insulin as well as his his metformin especially since he received IV contrast with his MARIA A ? We will place on sliding scale insulin ? Accu-Cheks ACHS ? We will monitor and make adjustments as necessary ? Given his MARIA A will hold his gabapentin DVT: Ambulation Charges/Coding Visit Charges Inpatient E&M: 69080 Subs Hosp L2
[2023-05-16 10:54] LABS: Bedside Glucose 129 mg/dL (74-106)
--- NOTE | 2023-05-16 12:00 | OP.CCLET_ITS ---
05/16/2023 Pablo Lloyd [address] [place] [address] Re : Upper GI endoscopy procedure for Shravan Anthony Dear Dr. Lloyd This procedure was performed on Tuesday, May 16, 2023. My impressions and recommendations are as follows: Impressions : - Non-severe non-erosive esophagitis with no bleeding. - Enlarged gastric folds. Biopsied. - Chronic duodenitis. Biopsied. Recommendations : - Written discharge instructions were provided to the patient. - The signs and symptoms of potential delayed complications were discussed with the patient. - Patient has a contact number available for emergencies. - Return to normal activities tomorrow. - Advance diet as tolerated. - Continue present medications. - Await pathology results. My findings are described in the full procedure note, which is enclosed. If I can be of further assistance, please feel free to contact me at . Sincerely, Yang Napier, 05/16/2023 11:59:42 AM This report has been signed electronically.
--- NOTE | 2023-05-16 12:00 | OP.EGD_ITS ---
Patient Name: Shravan Anthony Procedure Date: 05/16/2023 11:34 AM Date of : 1985 Age: 38 Procedure: Upper GI endoscopy Indications: Epigastric abdominal pain Providers: Yang Napier DO Medicines: Monitored Anesthesia Care Patient Profile: This is a 38 year old male. Refer to note in patient chart for documentation of history and physical. Patient has symptoms of acute nausea and acute vomiting. Complications: No immediate complications. Procedure: Pre-Anesthesia Assessment: - Prior to the procedure, a History and Physical was performed, and patient medications and allergies were reviewed. The risks and benefits of the procedure and the sedation options and risks were discussed with the patient. All questions were answered and informed consent was obtained. Patient identification and proposed procedure were verified by the physician in the pre-procedure area. Mental Status Examination: alert and oriented. Airway Examination: normal oropharyngeal airway and neck mobility. Respiratory Examination: clear to auscultation. CV Examination: normal. Prophylactic Antibiotics: The patient does not require prophylactic antibiotics. Prior Anticoagulants: The patient has taken no anticoagulant or antiplatelet agents. ASA Grade Assessment: II - A patient with mild systemic disease. After reviewing the risks and benefits, the patient was deemed in satisfactory condition to undergo the procedure. The anesthesia plan was to use monitored anesthesia care (MAC). Immediately prior to administration of medications, the patient was re-assessed for adequacy to receive sedatives. The heart rate, respiratory rate, oxygen saturations, blood pressure, adequacy of pulmonary ventilation, and response to care were monitored throughout the procedure. The physical status of the patient was re-assessed after the procedure. After obtaining informed consent, the endoscope was passed under direct vision. Throughout the procedure, the patient's blood pressure, pulse, and oxygen saturations were monitored continuously. The gastroscope was introduced through the mouth, and advanced to the second part of duodenum. The upper GI endoscopy was accomplished without difficulty. The patient tolerated the procedure well. Scope In: 11:46:25 AM Scope Out: 11:55:06 AM Total Procedure Duration Time 0 hours 8 minutes 41 seconds Findings: Non-severe esophagitis with no bleeding was found 38 to 40 cm from the incisors. Diffuse prominent gastric folds were found in the cardia, in the gastric fundus and in the gastric body. Biopsies were taken with a cold forceps for histology. Biopsies were taken with a cold forceps for histology. Biopsies were taken with a cold forceps for Helicobacter pylori testing. Verification of patient identification for the specimen was done. Estimated blood loss was minimal. Diffuse severe inflammation characterized by congestion (edema), erosions, erythema, friability and granularity was found in the duodenal bulb, in the first portion of the duodenum and in the second portion of the duodenum. Biopsies were taken with a cold forceps for histology. Verification of patient identification for the specimen was done. Estimated blood loss was minimal. Impression: - Non-severe non-erosive esophagitis with no bleeding. - Enlarged gastric folds. Biopsied. - Chronic duodenitis. Biopsied. Recommendation: - Written discharge instructions were provided to the patient. - The signs and symptoms of potential delayed complications were discussed with the patient. - Patient has a contact number available for emergencies. - Return to normal activities tomorrow. - Advance diet as tolerated. - Continue present medications. - Await pathology results. Procedure Code(s): --- Professional --- 63423, Esophagogastroduodenoscopy, flexible, transoral; with biopsy, single or multiple CPT copyright 2021 [employer]. All rights reserved. The codes documented in this report are preliminary and upon tower erector review may be revised to meet current compliance requirements. Yang Napier DO 05/16/2023 11:59:42 AM This report has been signed electronically. Number of Addenda: 0 Note Initiated On: 05/16/2023 11:34 AM
[2023-05-16] MEDS: 0.9% Normal Saline (1000mL) 1,000 ML 100 ML IV (12:36)
[2023-05-16] MEDS: buPROPion (XL) 150 MG TABLET.XL PO (13:23)
[2023-05-16] MEDS: Citalopram 40 MG TABLET PO (13:23)
[2023-05-16] MEDS: Carvedilol 25 MG Tablet PO (13:23)
[2023-05-16] MEDS: amLODIPine 10 MG Tablet PO (13:24)
--- NOTE | 2023-05-16 15:38 | CASEMGMT ---
RN?CM?JEWEL GRINDER?CM?to room to meet with patient for initial transition planning/care coordination?assessment.?RN?CM?introduced self and role at [facility].? Pt voices understanding and consents to?assessment?at this time.? Pt resting in bed in no distress at this time.? Pt is A/O at this time and answers all questions appropriately.?? Care providers, pharmacy, and demographics verified/updated at this time. PCP: Dr Lloyd. Pt states his last appt was last week and he has an upcoming appt next week on Sunday w/[employer] CONSULTANT Lizzeth Older @ Dr Lloyd's office. Specialists: Dr Alejandre--pt states he is scheduled to have a colonoscopy 06/01 Preferred Pharmacy: [facility] [place]: [facility] [place] Pres[place] Benefit:?yes Living Will/HPOA:? Has both LW and HCPOA, who is his , Albina [place]: , Albina Living Arrangements: Lives w/, 12 yr-old dtr and 2 yr-old in 2-story home w/basement and 2 steps to enter. Denies difficulty w/stairs. Independent. Works full-time from home. Transportation:?Pt and both drive. Pt denies having any transportation concerns. DME: States has the following DME:?nebulizer and auto PAP. Pt states his glucometer keeps reading error. He recently got a script from his PCP for a glucometer since he now has new insurance, but was denied coverage by [facility]cometer. He states [facility] has a Diabetes Mgnt Program and was given their contact info and plans to call them for assistance w/this. He denies needing help from CM w/this, stating, I think I got it. This RN CM had informed pt of OTC glucometers @ [employer] and other drug stores, but he states he did not end up getting one OTC. Pt states no need for further DME at this time.? He states he has all medications and insulin needed. HHC/SNF: No hx of either. Pt wishes to return home and states has no concerns with going home at time of discharge.? ?CM?to follow for any further discharge planning/needs.? Pt voices no further concerns/needs at this time.? Advised pt to ask for?CM?if any further questions/concerns/needs arise.? Voices understanding. PLAN:??Home Kyle BSN?RN?CM
[2023-05-16] MEDS: Insulin Lispro 100 UNIT/ML INSULN.PEN SC (16:36)
--- NOTE | 2023-05-16 16:45 | NURSING ---
no distress noted. pt reports tolerated 1 meal since returning to unit. denies all n/v/pain or diarrhea. denies all further needs. call light within reach.
--- NOTE | 2023-05-16 16:46 | DCINST_ITS ---
Discharge Instructions Diet Discharge Diet: Light diet - advance as tolerated and Low fat / Low cholesterol Activity Discharge Activity: Return to Normal Activity Dressing / Incision Call your doctor if you observe: Fever of 101 or Higher, Shortness of breath, Dizziness, Fainting spells, Swelling in the ankles, Chest pain and Increased palpitations (irregular heartbeat) Follow Up Care Test Results: Test results from this visit will be discussed in further detail at your follow- up appointment, if applicable. Discharge Plan Admission Admit Date/Time: 05/15/23 16:47 Attending Provider: Ankit Gomez Primary Care Provider: Pablo Lloyd Instructions Additional Instructions / Restrictions: Follow-up with your PCP in 3 to 5 days to obtain outpatient lab work to monitor your renal function. Discharge Orders/Prescriptions Prescriptions: Continued citalopram 40 MG tablet 40 mg PO DAILY Patient Comments: TK 1 T PO QD gabapentin 800 mg Tablet 800 mg PO BID atorvastatin 40 mg Tablet 40 mg PO QHS bupropion HCl [Wellbutrin XL] 150 mg Tablet Extended Release 24 Hr 150 mg PO DAILY carvedilol 25 mg Tablet 25 mg PO BID Qty: 60 0RF minoxidil 10 mg Tablet 10 mg PO DAILY Qty: 30 0RF hydralazine 100 mg tablet 100 mg PO TID Qty: 90 0RF amlodipine 10 mg Tablet 10 mg PO DAILY Qty: 30 0RF amoxicillin 875 mg tablet 875 mg PO BID Patient Comments: TAKE 1 TABLET BY MOUTH TWICE DAILY FOR 7 DAYS FILLED ON 05/11/23 insulin glargine 100 unit/mL (3 mL) insulin pen 25 unit SUBCUT QHS Patient Comments: ADMINISTER 25 UNITS UNDER THE SKIN DAILY AT BEDTIME metoclopramide HCl 10 mg tablet 10 mg PO Q6H PRN (Reason: nausea and vomiting) Qty: 14 0RF Changed esomeprazole magnesium 40 MG capsule,delayed release(DR/EC) 40 mg PO BID Qty: 60 0RF Held chlorthalidone 25 MG tablet 25 mg PO DAILY Hold Instructions: Resume on 05/18/23. metformin 1,000 mg Tablet 1,000 mg PO BID Hold Instructions: Resume on 05/18/23. spironolactone 25 mg Tablet 25 mg PO DAILY Qty: 30 0RF Hold Instructions: Resume on 05/18/23. lisinopril 40 mg tablet 40 mg PO DAILY Qty: 30 0RF Hold Instructions: Resume on 05/18/23. Referrals / Follow Up: Yang Napier DO [Med Staff - Active Staff] - Within 1 Month Pablo Lloyd MD [Primary Care Provider] - 05/22/23 (As per previously scheduled. ) Disposition Disposition (needs filled in before D/C Order can be placed): Home, Self Care
--- NOTE | 2023-05-16 16:55 | MDS.RN ---
LAB CALLED REQUESTED THEY COME DRAW OUTSTANDING LABS.
[2023-05-16 16:58] LABS: Bedside Glucose 239 mg/dL (74-106)
--- NOTE | 2023-05-16 17:00 | PCM.DC.SUM ---
Providers Date of Admission: 05/15/23 Primary Care Physician: Dr. Pablo Lloyd MD Consultations 05/15/23 17:38 Consult: Gastroenterology Routine Consulting Provider: [facility] Reason for Consult: Early satiety with NV EMERGENT Consult: No MD Notified: Yes Date Notified: 05/15/23 Time Notified: 18:00 Method of Notification: Text Reason For Visit: MARIA A WITH NAUSEA VOMITING Diagnosis Discharge Diagnosis (1) Vomiting: Status: Acute Code(s): R11.10 - Vomiting, unspecified (2) MARIA A (acute kidney injury): Status: Acute Code(s): N17.9 - Acute kidney failure, unspecified Medications at Discharge Home Medications chlorthalidone 25 mg tablet 25 mg PO DAILY BLOOD PRESSURE 01/25/19 citalopram 40 mg tablet 40 mg PO DAILY DEPRESSION 01/25/19 atorvastatin 40 mg tablet 40 mg PO QHS 09/25/22 bupropion HCl 150 mg 24 hr tablet, extended release (Wellbutrin XL) 150 mg PO DAILY 09/25/22 gabapentin 800 mg tablet 800 mg PO BID 09/25/22 metformin 1,000 mg tablet 1,000 mg PO BID 09/25/22 amlodipine 10 mg tablet 10 mg PO DAILY #30 tabs 09/29/22 carvedilol 25 mg tablet 25 mg PO BID #60 tabs 09/29/22 hydralazine 100 mg tablet 100 mg PO TID #90 tabs 09/29/22 lisinopril 40 mg tablet 40 mg PO DAILY #30 tabs 09/29/22 minoxidil 10 mg tablet 10 mg PO DAILY #30 tabs 09/29/22 spironolactone 25 mg tablet 25 mg PO DAILY #30 tabs 09/29/22 metoclopramide HCl 10 mg tablet 10 mg PO Q6H PRN nausea and vomiting #14 tabs 05/05/23 amoxicillin 875 mg tablet 875 mg PO BID 05/15/23 insulin glargine 100 unit/mL (3 mL) subcutaneous pen 25 unit subcut QHS DM 05/15/23 esomeprazole magnesium 40 mg capsule,delayed release 40 mg PO BID HEARTBURN #60 caps 05/16/23 Hospital Course Operations None Procedures EGD Summary of Care Provided Minutes Spent on Discharge: 37 Hospital Course: Per HPI: CHIDI ALVAREZ, is a 38 M who presents with 4 weeks of nausea and vomiting. He has not been eating very well and he states that every time he eats something it does feel like it goes down but then he developed some nausea and then brings it back up. He has had about a 20 pound weight loss in the last month because of it. He has gone to see his PCP who is unclear as to what was going on so we referred him to ENT for some dizziness issues which they were unable to find anything. They trialed him on some Reglan which has not helped. He presented today because of continued nausea and vomiting as well as dizziness. Did have some dizziness and dysmetria back in September 2022 at that time an MRI was unremarkable. Today on admission his creatinine is 2.05 and he does indicate some dry mouth. He has been having a sensation of early satiety, he is a cigar smoker and there is family history of gastric cancer. He is also a type II diabetic since the age of 14. Hospital Course: 1. MARIA A secondary to dehydration from nausea and vomiting/GERD?38-year-old male presents to the hospital with nausea vomiting and weight loss over the last month. Outpatient work-up has not yielded any answer so he presented to the hospital. He did have an MARIA A admission with a creatinine of 2.5 which is down to 1.42 today on discharge. He had had his EGD today which demonstrated diffuse severe inflammation with erythema and friability in the duodenum, he also had thickened gastric folds and multiple biopsies were taken, there is lab work also pending to be collected. Gastroenterology felt that he would be okay for discharge today especially since his renal function has improved down to 1.42. I do recommend he follow-up with his PCP in 3 to 5 days to obtain outpatient lab work for his kidney function. I also recommend that he follow-up with gastroenterology in a month. We will plan for twice daily PPI. I also discussed holding some of his other blood pressure medication secondary to his renal function until about Sunday and to stay well-hydrated. I discussed with him the plan for discharge today he expressed understanding of the risk benefits of going home and would like to go home today. No 2. Hypertension, hyperlipidemia, morbid obesity, type 2 diabetes with peripheral neuropathy are all chronic medical conditions which complicate his care. His home medications were continued where appropriate. His renally effective blood pressure medications were held until Sunday as well as his metformin he does have an appointment next week with his PCP and I recommend that he obtain outpatient lab work for his renal function at that time. Weight / BMI Weight Weight: 430 lb 9.004 oz Body Mass Index (BMI) 55.3 ABG / Lab / Microbiology Data 05/16/23 05:30 05/16/23 05:30 Laboratory: Laboratory Results - last 24 hr 05/15/23 20:17: POC Glucose 168 H 05/16/23 05:30: WBC 9.2, RBC 5.09, Hgb 14.0, Hct 42.5, MCV 83.5, MCH 27.5, MCHC 32.9, RDW Std Deviation 38.7, RDW Coeff of Debi 12.7, Plt Count 248, MPV 10.9, Immature Gran % (Auto) 0.500, Neut % (Auto) 63.2, Lymph % (Auto) 25.2, [place] % (Auto) 8.0, Eos % (Auto) 2.3, Baso % (Auto) 0.8, Absolute Neuts (auto) 5.8, Absolute Lymphs (auto) 2.32, Nucleated RBC % 0, Sodium 133 L, Potassium 3.3 L, Chloride 101, Carbon Dioxide 27.0, Anion Gap 5, BUN 16, Creatinine 1.42 H, Estim Creat Clear Calc 81.20, Est GFR (MDRD) Af Amer 71, Est GFR (MDRD) Non-Af 59 L, BUN/Creatinine Ratio 11.3, Glucose 124 H, Hemoglobin A1c 7.2 H, Calcium 9.1 05/16/23 06:20: POC Glucose 115 H 05/16/23 10:26: POC Glucose 129 H 05/16/23 16:34: POC Glucose 239 H D/C Instructions Discharge Diet: Light diet - advance as tolerated and Low fat / Low cholesterol Call your doctor if you observe: Fever of 101 or Higher, Shortness of breath, Dizziness, Fainting spells, Swelling in the ankles, Chest pain and Increased palpitations (irregular heartbeat) Meaningful Use Info Meaningful Use Diagnoses (Choose all that apply): None applicable Discharge Plan Admission Admit Date/Time: 05/15/23 16:47 Attending Provider: Ankit Gomez Primary Care Provider: Pablo Lloyd Instructions Additional Instructions / Restrictions: Follow-up with your PCP in 3 to 5 days to obtain outpatient lab work to monitor your renal function. Discharge Orders/Prescriptions Prescriptions: Continued citalopram 40 MG tablet 40 mg PO DAILY Patient Comments: TK 1 T PO QD gabapentin 800 mg Tablet 800 mg PO BID atorvastatin 40 mg Tablet 40 mg PO QHS bupropion HCl [Wellbutrin XL] 150 mg Tablet Extended Release 24 Hr 150 mg PO DAILY carvedilol 25 mg Tablet 25 mg PO BID Qty: 60 0RF minoxidil 10 mg Tablet 10 mg PO DAILY Qty: 30 0RF hydralazine 100 mg tablet 100 mg PO TID Qty: 90 0RF amlodipine 10 mg Tablet 10 mg PO DAILY Qty: 30 0RF amoxicillin 875 mg tablet 875 mg PO BID Patient Comments: TAKE 1 TABLET BY MOUTH TWICE DAILY FOR 7 DAYS FILLED ON 05/11/23 insulin glargine 100 unit/mL (3 mL) insulin pen 25 unit SUBCUT QHS Patient Comments: ADMINISTER 25 UNITS UNDER THE SKIN DAILY AT BEDTIME metoclopramide HCl 10 mg tablet 10 mg PO Q6H PRN (Reason: nausea and vomiting) Qty: 14 0RF Changed esomeprazole magnesium 40 MG capsule,delayed release(DR/EC) 40 mg PO BID Qty: 60 0RF Held chlorthalidone 25 MG tablet 25 mg PO DAILY Hold Instructions: Resume on 05/18/23. metformin 1,000 mg Tablet 1,000 mg PO BID Hold Instructions: Resume on 05/18/23. spironolactone 25 mg Tablet 25 mg PO DAILY Qty: 30 0RF Hold Instructions: Resume on 05/18/23. lisinopril 40 mg tablet 40 mg PO DAILY Qty: 30 0RF Hold Instructions: Resume on 05/18/23. Referrals / Follow Up: Yang Napier DO [Med Staff - Active Staff] - Within 1 Month Pablo Lloyd MD [Primary Care Provider] - 05/22/23 (As per previously scheduled. ) Disposition Disposition (needs filled in before D/C Order can be placed): Home, Self Care Charges/Coding Visit Charges Inpatient E&M: 89452 Disch Hosp >30min
--- NOTE | 2023-05-16 17:10 | IMM_PTH ---
PATIENT: CHIDI ALVAREZ LOC: [id number] U#:[id number] AGE/SX: 38/M ROOM: [facility] [place] RE05/15/[address]: Dr. Ankit Gomez MD : 1985 BED: 1 DIS: 05/16/2023 SPEC #: [id number] RECD: 05/17/23 14:05 STATUS: CARLO REJose #: [id number] ABIMAEL: 05/16/23 17:[address]: Yang Napier DEPT: IMMUNOHISTOCHEMISTRY RECD BY: Kaley Ross ENTERED: 05/17/23 14:05 SP TYPE: IMMUNO OTHR DR: MD Dr. Pablo Patel MD Tissues: A - Stomach, NOS Procedures: H Pylori (initial) PHYSICIAN & INSTITUTION [place] [id number] SPECIMEN INFORMATION: Tissue Source: A - Gastric antrum Clinical Info: Vomiting, acute kidney injury Specimen Number: [id number] CPT code: 09526 METHODOLOGY: Deparaffinized sections of prefer/formalin-fixed tissue or PAP/DQ stained slides are incubated with monoclonal/polyclonal antibodies/oligonucleotide probes. Localization is made via biotin free immunoperoxidase method. Appropriate controls are performed and reacted as expected. Results on target cell population are indicated in the following table: RESULTS: ANTIBODY / CLONE RESULT Block A H Pylori (polyclonal) negative These tests were developed and their performance characteristics determined by [facility]. They may not have been cleared or approved by the [place]. Food and Drug Administration. The FDA has determined that such clearance or approval is not necessary. The above immunohistochemical/dualISH markers are ordered and reviewed by the Pathologist. INTERPRETATION: A. Gastric antrum, biopsy: Negative for Helicobacter pylori organisms. CATINA:vi 05/18/2023
[2023-05-16 17:13] LABS: CRP 3.84 mg/L (0.0-3.0)
[2023-05-16 17:17] LABS: Erythrocyte Sedimentation Rate 15 mm/hr (0-20)
[2023-05-18 13:08] LABS: Anti-Centromere B Ab >8.0 AI (0.0-0.9); Anti-Chromatin <0.2 AI (0.0-0.9); Anti-Jo <0.2 AI (0.0-0.9); Anti-Scleroderma-70 AB <0.2 AI (0.0-0.9); Anti-dsDNA Ab <1 IU/mL (0-9); RNP Ab 0.2 AI (0.0-0.9); SJOGREN'S Anti-SS-A test < 0.2 AI (0.0-0.9); SJOGREN'S Anti-SS-B test < 0.2 AI (0.0-0.9); Smith Ab <0.2 AI (0.0-0.9)
[2023-05-20 20:07] LABS: Cytoplasmic Ab (C-ANCA) <1:20 titer (Neg:<1:20); Deamidated Gliadin IgA 5 units (0-19); Deamidated Gliadin IgG 2 units (0-19); Endomysial Antibody IgA Negative (Negative); Immunoglobulin A 168 mg/dL (90-386); Immunoglobulin E 183 IU/mL (6-495); Immunoglobulin G 694 mg/dL (603-1613); Immunoglobulin M 38 mg/dL (20-172); Perinuclear Ab (P-ANCA) <1:20 titer (Neg:<1:20); t-Transglutaminase IgA <2 U/mL (0-3)
== END 2023-05-16 18:14 | disposition home or self-care (01) ==
LOC: ED 15:50 → MS3 05-16 06:53
PROVIDERS: Anesthesiology; Internal Medicine Gastroenterology; Admitting Provider Family Medicine; Emergency Provider Emergency Medicine; PCP Internal Medicine; Visit Provider Family Medicine
PROC: 0DJ08ZZ Inspection of Upper Intestinal Tract, Via Natural or Artificial Opening Endoscopic (ICD-10-PCS; CPT 43235; principal; 2023-05-16 17:05)
DX: E86.0 Dehydration (principal); N17.9 Acute kidney failure, unspecified; E11.42 Type 2 diabetes mellitus with diabetic polyneuropathy; Z68.42 Body mass index [BMI] 45.0-49.9, adult; E66.01 Morbid (severe) obesity due to excess calories; Z79.4 Long term (current) use of insulin; I10 Essential (primary) hypertension; E78.5 Hyperlipidemia, unspecified; K29.70 Gastritis, unspecified, without bleeding; K21.9 Gastro-esophageal reflux disease without esophagitis; R42 Dizziness and giddiness; K29.80 Duodenitis without bleeding; R68.81 Early satiety; Z79.899 Other long term (current) drug therapy; Z79.84 Long term (current) use of oral hypoglycemic drugs; F17.290 Nicotine dependence, other tobacco product, uncomplicated; R11.2 Nausea with vomiting, unspecified
CPT/HCPCS: 43239; 36415; 74177; 80048; 80053; 81001; 82784; 82785; 82962; 83036; 83516; 83605; 85025; 85652; 86140; 86225; 86235; 86255; 86256; 88305; 88342; 93005; 96361; 96374; 97802; 99221; 99285; 99406; J7030; Q9967; A4216; G0378; J2405